=== PATIENT | female | born 1930 | race Caucasian/White ===

== ENCOUNTER 2017-01-06 17:05 | Inpatient (IN) ==
[2017-01-06] MEDS ORDERED: DiltiaZEM 25 MG/5 ML INJECTION IVP ONE ×2 (17:45→18:09)
[2017-01-06] MEDS ORDERED: NS 1,000 ML IV ONE (17:45)
[2017-01-06] MEDS ORDERED: SALINE FLUSH 10ml SYRINGE IVF PRN (17:45)
--- NOTE | 2017-01-06 18:18 | Emergency Department Report ---
Cardiac General HPI - General Chief Complaint: Arrhythmia/Palpitations <Alexis Clemons Q - 01/06/17 23:40> Stated Complaint: Cardiac <Alexis Clemons Q - 01/06/17 23:40> Time Seen by Provider: 01/06/17 17:38 <Alexis Clemons Q - 01/06/17 23:40> - History of Present Illness HPI narrative: 86-year-old female presents with irregular heart rate. Patient went to see her primary care provider today because she had noticed some fatigue. She felt like her sugars were low. She even tried eating a little bit of extra carbohydrate, which did not help. When she did check her sugar was over 200. She's had no fever, no chills. She does say she tends to be a little bit dehydrated and does not drink enough water. No chest pain, shortness of breath or chest pressure. No previous cardiac history. <RuddyRamesh E - 01/06/17 18:18> - Related Data Home Medications Medication Instructions Recorded Confirmed Pravastatin Sodium 40 mg PO HS #0 02/17/11 01/06/17 Insulin NPH/Reg-Don't Expunge 12 unit SQ HS #0 12/17/15 01/06/17 [Humulin 70/30] Insulin NPH/Reg-Don't Expunge 16 unit SQ AMI #0 12/17/15 01/06/17 [Humulin 70/30] Latanoprost 1 drop LEFT EYE HS #0 bottle 12/17/15 01/06/17 Losartan Potassium 50 mg PO DAILY #0 tab 12/17/15 01/06/17 Tramadol HCl 50 mg PO BID PRN #0 tab 12/17/15 01/06/17 dilTIAZem HCl [Cartia Xt] 240 mg PO HS #0 cap 12/17/15 01/06/17 Aspirin [Adult Low Dose Aspirin EC] 81 mg PO HS 01/06/17 01/06/17 <Alexis Clemons Q - 01/06/17 23:40> Allergies Allergy/AdvReac Type Severity Reaction Status Date / Time lisinopril Allergy Unknown Verified 01/06/17 17:25 metronidazole Allergy Unknown Verified 01/06/17 17:25 nitrofurantoin Allergy Unknown Verified 01/06/17 17:25 ofloxacin Allergy Unknown Verified 01/06/17 17:25 metformin AdvReac Unknown Diarrhea Verified 01/06/17 17:25 hydrocodone AdvReac Verified 01/06/17 17:28 <Alexis Clemons Q - 01/06/17 23:40> Review of Systems All systems: reviewed and negative except as stated <Ramesh Fox 18:18> [facility] Patient Stated Medical History Cataracts Yes Cardiac Arrhythmia Yes: a-fib Hypertension Yes Other Cardiology Yes: hyperlipidemia Diabetes Mellitus Type 2 Yes <RuddyRamesh Gray 01/06/17 18:14> Patient Stated Medical History Cataracts Yes Cardiac Arrhythmia Yes: a-fib Hypertension Yes Other Cardiology Yes: hyperlipidemia Diabetes Mellitus Type 2 Yes <Alexis Clemons - 01/06/17 19:57> Medical History Updates: Hypertension, diabetes. <RuddyRamesh Gray 01/06/17 18 :18> Surgical History: Negative <RuddyRamesh Gray 01/06/17 18:18> - Social History Smoking status: Never smoker <RuddyRamesh Gray 01/06/17 18:18> Substance use type: does not use <Ramesh Fox 01/06/17 18:18> Physical Exam - Limitations Limitations: no limitations <Ramesh Fox 01/06/17 18:18> - General General appearance: alert, in no apparent distress <RuddyRamesh Gray 01/06/17 18:18> - Normal Exams: Head:: Normocephalic without trauma <RuddyRamesh Gray 01/06/17 18:18> Eyes:: Pupils are PERRLA w/ EOMI, No scleral icterus, irritation, or foreign bodies noted <RuddyRamesh Gray 01/06/17 18:18> Neck:: Full range of motion, without adenopathy, JVD, bruits or thyromegaly < [place] Gray 01/06/17 18:18> Chest/Respirations:: Clear all fitzpatrick, with good airflow, and symmetry bilaterally <RuddyRamesh Gray 01/06/17 18:18> Cardiovascular:: without murmur or gallop, Pulses 2+ all extremities, capillary refill, <2 seconds all extremities <[place] Gray 01/06/17 18:18> Abdomen:: Bowel sounds positive, soft, non-tender, non-distended, no hepatosplenomegaly, masses or bruits noted <Ramesh Fox - 01/06/17 18:18> Neurological:: Patient is alert, and oriented, cranial nerves, motor/sensory/ cerebellar, exams w/o gross deficits, to observation <Ramesh Fox 18:18> Psychiatric:: Patient exhibits, appropriate attention, emotion and affect < Ramesh Fox 01/06/17 18:18> - Cardiovascular Cardiovascular exam: Present: tachycardia <Ramesh Fox 01/06/17 18:18> Course Vital Signs Temperature 98.6 F 01/06/17 17:07 Pulse Rate 138 H 01/06/17 17:07 Respiratory Rate 16 01/06/17 17:07 Blood Pressure 136/82 01/06/17 17:07 Pulse Oximetry 94 01/06/17 17:07 Temperature 98.6 F 01/06/17 17:07 Pulse Rate 70 01/06/17 20:00 Respiratory Rate 16 01/06/17 20:00 Blood Pressure 142/70 H 01/06/17 20:00 Pulse Oximetry 99 01/06/17 20:00 <Alexis Clemons - 01/06/17 23:40> Cardiac General - [facility] Narrative Medical decision making narrative: Patient given a total of 25 Cardizem IV started on a drip at 5 mg per hour. Patient is currently rate controlled rate of 70, however still has underlying atrial flutter rhythm. Patient only anticoagulation right now is low dose 81 mg aspirin. Discuss case with Dr. Parker, tele-hospitalist, she will admit to the CCU <Alexis Clemons - 01/06/17 23:40> Initial labs including troponin, CBC, CMP, TSH, EKG and chest x-ray are ordered. Patient had 1 L normal saline ordered as a bolus to be given IV, 10 mg of Cardizem were given IV. Patient is being turned over to Dr. Clemons who is taking over the shift. <Ramesh Fox - 01/06/17 18:18> - Medical Records Attestation: I reviewed the patient's medical records. <Alexis Clemons - 23:40> - Lab Data Attestation: I reviewed the patient's lab results. <Alexis Clemons Q - 23:40> Result diagrams: 01/06/17 17:35 01/06/17 17:35 <Alexis Clemons Q - 01/06/17 23:40> Lab Results 01/06/17 01/06/17 01/06/17 Range/Units 17:35 17:35 18:51 WBC 11.7 H (4.5-11.0) T/MM3 RBC 5.37 H (4.00-5.20) M/MM3 Hgb 16.0 (12-16) GM/DL Hct 49.9 H (36-46) % MCV 92.9 (80-100) UM3 MCH 29.8 (26-34) UUG MCHC 32.1 (31-37) GM/DL RDW Std Deviation 45.1 (36.9-50.2) FL Plt Count 335 (130-400) T/MM3 MPV 11.7 (9.4-12.4) UM3 Immature Gran % (Auto) 0.3 (0.0-0.5) % Neut % (Auto) 70.6 H (33-66) % Lymph % (Auto) 23.2 (23-45) % Avery % (Auto) 5.4 (0-9.0) % Eos % (Auto) 0.3 (0-4) % Baso % (Auto) 0.2 (0-2) % Neut # 8.2 H (1.8-7.7) T/MM3 Lymph # 2.7 (1-4.8) T/MM3 Avery # 0.6 (0-0.8) T/MM3 Eos # 0.0 (0-0.5) T/MM3 Baso # 0.0 (0-0.2) T/MM3 Abs Immat Gran (auto) 0.03 (0.00-0.03) T/MM3 Turbidity < 20 (0-20) Sodium 138 (134-144) MEQ/L Potassium 4.4 (3.6-5) MEQ/L Chloride 100 (98-107) MEQ/L Carbon Dioxide 26 (22-30) MEQ/L Anion Gap 12 (5-15) MEQ/L BUN 24.0 H (7-17) MG/DL Creatinine 1.1 (0.7-1.2) MG/DL GFR Calculation 47 BUN/Creatinine Ratio 22 (6-26) RATIO Glucose 232 H (65-110) MG/DL Calculated Osmolality 277 (261-280) MOSM/KG Calcium 9.9 (8.4-10.2) MG/DL Magnesium 2.2 (1.6-2.3) MG/DL Total Bilirubin 0.70 (0.20-1.30) MG/DL Icterus Index < 2 (0-7) AST 22 (14-36) U/L ALT 23 (9-52) U/L Alkaline Phosphatase 95 (38-126) U/L Creatine Kinase 45 (30-135) U/L Troponin I 0.033 (0-0.12) ng/ml Total Protein 7.1 (6.3-8.2) G/DL Albumin 4.7 (3.5-5.0) G/DL Globulin 2.4 (2.4-3.6) G/DL Albumin/Globulin Ratio 2.0 (1.1-2.2) RATIO TSH 3.95 (0.47-4.68) MIU/L Specimen Hemolysis 30 H (0-25) Ur Collection Type Urine, clean catch Urine Color Yellow (YELLOW) Urine Clarity Clear Urine pH 6.5 (5.0-8.0) Ur Specific Clyde <=1.005 L (1.015-1.025) Urine Protein Negative (NEGATIVE) Urine Glucose (UA) Negative (NEGATIVE) Urine Ketones Negative (NEGATIVE) Urine Occult Blood Trace-intact (NEGATIVE) Urine Nitrate Negative (NEGATIVE) Urine Bilirubin Negative (NEGATIVE) Urine Urobilinogen 0.2 (NORMAL) EU/DL Ur Leukocyte Esterase 1+ A (NEGATIVE) Urine RBC 0-1 (0-3) /HPF Urine WBC 5-10 H (0-5) /HPF Urine WBC Clumps Few Ur Squamous Epith Cells 0-5 Urine Bacteria 1+ H (NEGATIVE) Ur Culture Indicated? Cult not indicated <Alexis Clemons 01/06/17 23:40> - Radiology Data Attestation: I reviewed the patient's radiology results. <Alexis Clemons 23:40> Two-view chest x-ray, no acute cardiopulmonary findings <Alexis Clemons 01/06/17 23:40> - EKG Data EKG #1 EKG attestation: Yes: I reviewed and interpreted this EKG. <Kaci,Alexis Q - 01/06/17 23:40> EKG results narrative: Atrial fib/flutter <Kaci,Alexis Q - 01/06/17 23:40> Rate: tachycardia <Kaci,Alexis Q - 01/06/17 23:40> Rhythm: A. flutter, with a 2:1 block <Whiteside,Alexis Q - 01/06/17 23:40> [place]/QRS: LBBB <Kaci,Alexis Q - 01/06/17 23:40> Interpretation: no acute changes <Whiteside,Alexis Q - 01/06/17 23:40> EKG #2 EKG attestation: Yes: I reviewed and interpreted this EKG. <Whiteside,Alexis Q - 01/06/17 23:40> EKG results narrative: Atrial fibrillation/flutter <Whiteside,Alexis Q - 01/06/17 23:40> Rate: normal <Whiteside,Alexis Q 01/06/17 23:40> Rhythm: A. flutter <Kaci,Alexis Q - 01/06/17 23:40> [place]/QRS: LBBB <Kaci,Alexis Q - 01/06/17 23:40> Interpretation: no acute changes <Whiteside,Alexis Q - 01/06/17 23:40> EKG #3 EKG attestation: Yes: I reviewed and interpreted this EKG. <Whiteside,Alexis Q - 01/06/17 23:40> EKG results narrative: Atrial fib/flutter <Whiteside,Alexis Q - 01/06/17 23:40> Rate: normal <Kaci,Alexis Q - 01/06/17 23:40> Rhythm: A. flutter <Kaci,Alexis Q - 01/06/17 23:40> [place]/QRS: LBBB <Whiteside,Alexis Q - 01/06/17 23:40> When compared to previous EKG there are: no significant changes <Whiteside, Alexis Q - 01/06/17 23:40> Interpretation: no acute changes <Kaci,Alexis Q - 01/06/17 23:40> Disposition Clinical Impression: Atrial fibrillation Qualifiers: Atrial fibrillation type: paroxysmal Qualified Code(s): I48.0 - Paroxysmal atrial fibrillation <Alexis Clemons 01/06/17 19:57> Disposition: 02 To [facility] <Alexis Clemons 01/06/17 19:57> Condition: Stable <Alexis Clemons 01/06/17 19:57> Instructions: <Alexis Clemons 01/06/17 23:40> Prescriptions: No Action Insulin NPH/Reg-Don't Expunge [Humulin 70/30] 12 unit SQ HS #0 Tramadol HCl 50 mg PO BID PRN #0 tab PRN Reason: Pain dilTIAZem HCl [Cartia Xt] 240 mg PO HS #0 cap Aspirin [Adult Low Dose Aspirin EC] 81 mg PO HS Pravastatin Sodium 40 mg PO HS #0 Insulin NPH/Reg-Don't Expunge [Humulin 70/30] 16 unit SQ AMI #0 Latanoprost 1 drop LEFT EYE HS #0 bottle Losartan Potassium 50 mg PO DAILY #0 tab <Alexis Clemons 01/06/17 23:40> Referrals: Sachin Carias MD [Family Provider] - <Alexis Clemons 23:40> Forms: <Alexis Clemons 01/06/17 23:40> - Seen By: physician <Alexis Clemons 01/06/17 19:57>
[2017-01-06] MEDS ORDERED: DiltiaZEM Drip 125 MG in NS 100 ML IV SCH (18:44)
[2017-01-06] MEDS: NS 1,000 ML IV SCH (19:27)
[2017-01-06] MEDS ORDERED: ONDANSETRON 4 MG/2 ML INJECTION IVP PRN (20:04)
[2017-01-06] MEDS ORDERED: TRAMADOL 50 MG TABLET PO PRN (20:13)
[2017-01-06] MEDS ORDERED: INSULIN NPH/REG 70/30 INJECTION SQ SCH (20:15)
[2017-01-06 20:39] VITALS: BMI 29.2
[2017-01-06] MEDS: LATANOPROST 0.005% EYE DROPS 2.5ml LEFT EYE SCH (22:00)
--- NOTE | 2017-01-06 22:00 | History & Physical Report ---
History of Present Illness Date: 01/06/17 Chief complaint: not feeling well HPI: 86 yo F with PMH of A. Jenny presented to the ED after being seen by her PCP today and found to have HR of 130. Patient went to see her primary care provider today because she had noticed some fatigue. She felt like her sugars were low. She even tried eating a little bit of extra carbohydrate, which did not help. When she did check her sugar was over 200. She's had no fever, no chills. She does say she tends to be a little bit dehydrated and does not drink enough water. No chest pain, shortness of breath or chest pressure. She sees a clock maker 1 a year and takes cardizem 240mg QD and ASA 81 mg daily. She is not on anticoagulation. She was found to have a HR in the 130's in the ED and A. Fib vs A. Flutter. She was given cardizem bolus IV and started on a cardizem gtt, her rate decreased to the 70's. She was found to be in A. Flutter on her EKG after her rate decreased. She was admitted to the CCU. Review of Systems All systems: reviewed and no additional remarkable complaints except as stated PFSH Patient Stated Medical History Cataracts Yes Cardiac Arrhythmia Yes: a-fib Hypertension Yes Other Cardiology Yes: hyperlipidemia Diabetes Mellitus Type 2 Yes Medical History Updates: Hypertension, diabetes. Surgical History: Negative - Social History Smoking status: Never smoker Medications Home Medications Medication Instructions Recorded Confirmed Type Pravastatin Sodium 40 mg PO HS #0 02/17/11 01/06/17 History Insulin NPH/Reg-Don't Expunge 12 unit SQ HS #0 12/17/15 01/06/17 History [Humulin 70/30] Insulin NPH/Reg-Don't Expunge 16 unit SQ AMI #0 12/17/15 01/06/17 History [Humulin 70/30] Latanoprost 1 drop LEFT EYE HS #0 bottle 12/17/15 01/06/17 History Losartan Potassium 50 mg PO DAILY #0 tab 12/17/15 01/06/17 History Tramadol HCl 50 mg PO BID PRN #0 tab 12/17/15 01/06/17 History dilTIAZem HCl [Cartia Xt] 240 mg PO HS #0 cap 12/17/15 01/06/17 History Aspirin [Adult Low Dose Aspirin EC] 81 mg PO HS 01/06/17 01/06/17 History Allergies Allergy/AdvReac Type Severity Reaction Status Date / Time lisinopril Allergy Unknown Verified 01/06/17 17:25 metronidazole Allergy Unknown Verified 01/06/17 17:25 nitrofurantoin Allergy Unknown Verified 01/06/17 17:25 ofloxacin Allergy Unknown Verified 01/06/17 17:25 metformin AdvReac Unknown Diarrhea Verified 01/06/17 17:25 hydrocodone AdvReac Verified 01/06/17 17:28 Exam Vital Signs: Temperature 98.6 F 01/06/17 17:07 Pulse Rate 70 01/06/17 20:00 Respiratory Rate 16 01/06/17 20:00 Blood Pressure 142/70 H 01/06/17 20:00 Pulse Oximetry 99 01/06/17 20:00 Oxygen Delivery Method Room Air Height: 1.6 m Weight: 74.8 kg Body Mass Index: 29.2 - Constitutional Present: well nourished, well developed - Routine Respiratory Exam Present: CTA bilaterally. Absent: wheezes - Routine Cardiovascular Exam Present: no murmur, irregular rhythm, irregularly irregular - Routine Abdominal Exam Present: soft, normoactive bowel sounds, non distended. Absent: tenderness - Routine Extremities Exam Present: edema (B/L lower extremity) - Routine Skin Exam Present: dry, warm - Routine Neurological Exam Present: alert, oriented X3, CN II-XII intact Results - Labs CBC & Chem 7: 01/06/17 17:35 01/06/17 17:35 Assessment and Plan (1) Atrial fibrillation Current visit: Yes Status: Acute (2) Diabetes Current visit: Yes Status: Acute 01/06/17 22:05 Patient admitted to CCU with cardizem gtt going. Patient in A. Flutter with 2:1 block. She is hemodynamically stable at this time. Given her home dose of cardizem 240mg QD and starter on heparin 5,000 Q8H SQ. Consult cardiology in AM. Patient reports last ECHO was 5 years ago. DVT Prophylaxis: SQ Heparin Resuscitation Status: Full Code - Time spent with patient greater than 35 minutes Hospital Course Summary Disclaimer: The visit summary below is not to be considered part of the above Progress Note.
[2017-01-06] MEDS: PRAVASTATIN 40 MG TABLET PO SCH (22:05)
[2017-01-06] MEDS: ASPIRIN *EC* 81 MG TABLET PO SCH (22:06)
[2017-01-06] MEDS: INSULIN NPH/REG 70/30 INJECTION SQ SCH (22:09)
[2017-01-07] MEDS ORDERED: HEPARIN SUB-Q 5,000 UNITS/0.5 ML INJECTION SQ SCH (01:00)
[2017-01-07] MEDS: NS 1,000 ML IV SCH ×2 (05:46→16:29)
[2017-01-07] MEDS ORDERED: ENOXAPARIN 80 MG/0.8 ML INJECTION SQ SCH (09:00)
[2017-01-07] MEDS: LOSARTAN 50 MG TABLET PO SCH (09:26)
[2017-01-07] MEDS: INSULIN NPH/REG 70/30 INJECTION SQ SCH ×2 (09:34→21:06)
[2017-01-07] MEDS ORDERED: DiltiaZEM 25 MG/5 ML INJECTION IVP ONE (19:01)
[2017-01-07] MEDS: ASPIRIN *EC* 81 MG TABLET PO SCH (21:01)
[2017-01-07] MEDS: LATANOPROST 0.005% EYE DROPS 2.5ml LEFT EYE SCH (21:03)
[2017-01-07] MEDS: PRAVASTATIN 40 MG TABLET PO SCH (21:04)
[2017-01-08] MEDS: NS 1,000 ML IV SCH (03:06)
[2017-01-08 08:12] VITALS: TEMP 98.3
[2017-01-08] MEDS: LOSARTAN 50 MG TABLET PO SCH (08:39)
[2017-01-08] MEDS: INSULIN NPH/REG 70/30 INJECTION SQ SCH (08:40)
--- NOTE | 2017-01-08 09:53 | XRay Report ---
INDICATION: tachyarrhythmia PROCEDURE: CHEST 2-VIEWS UPRIGHT (PA & LAT) Encounter: Initial COMPARISON: December 17, 2015 FINDINGS: The lungs are clear without evidence of focal abnormal airspace opacity. There is no pleural effusion or pneumothorax. The heart size, mediastinal contours and pulmonary vascularity are within normal limits. Right upper quadrant surgical clips. IMPRESSION: No acute cardiopulmonary disease. .
--- NOTE | 2017-01-08 12:29 | Cardiology Consult Note ---
History of Present Illness Consult date: 01/07/17 (A-flutter) <Yulia Toro 01/08/17 13:29> Requesting physician: Melida Holly <Yulia Toro 01/08/17 13:29> Consult reason: atrial fibrillation <Yulia Toro 01/08/17 13:29> Chief complaint: not feeling well <Yulia Toro 01/08/17 13:29> History of present illness: This is an 86 year old patient with a history of A-fib, HTN, DM. She had her first experience with A-fib about 10 yrs ago and was referred to Dr. Powell. She had another a few yrs ago. He has done a cardiac work up on her and she was told every thing is fine and told her to take ASA daily. For the last couple of days she had not been feeling well, shaky, and sweaty. She thought it was a low blood sugar but when she would check her blood sugar, it was always high, in the 200's. She has had a headache and when she stands up she felt worse. She saw Dr. Carias, her PCP and her HR was tachy. ECG: A-flutter , HR 137, LBBB. She was sent to the [facility] ER. She did not think it was A-fib because she did not feel palpitations like she had the past 2 x she was found to be in A-fib. In ER ECG: Atrial flutter, HR 136, LBBB. She was started on a Cardizem drip and her subsequent ECG: A-flutter, HR 70, LBBB. and she was admitted to ICU. Dr. Chavez was consulted for her A-flutter. <Yulia Toro 01/08/17 13:29> Review of Systems - Constitutional Constitutional: Present: fatigue, headache(s), malaise, weakness, other (sweats) <Yulia Toro 01/08/17 13:29> - EENMT Eyes: Absent: change in vision <Yulia Toro 01/08/17 13:29> Balance: Present: other (dizziness) <Yulia Toro 01/08/17 13:29> Mouth/Throat: Absent: sore throat <Yulia Toro 01/08/17 13:29> - Cardiovascular Cardiovascular: Present: dyspnea on exertion, edema (in ankles most the time. ) . Absent: chest pain, palpitations, syncope, orthopnea <Yulia Toro 13:29> Vascular: Absent: pedal edema <Yulia Toro 01/08/17 13:29> - Respiratory Respiratory: Present: dyspnea. Absent: cough, hemoptysis <Yulia Toro 01/08/17 13:29> - Gastrointestinal Gastrointestinal: Absent: change in bowel habits, hematemesis, hematochezia, melena, nausea <Yulia Toro 01/08/17 13:29> - Genitourinary Genitourinary: Absent: dysuria <Yulia Toro 01/08/17 13:29> - Musculoskeletal Musculoskeletal: Present: back pain (chronic). Absent: muscle cramps, muscle weakness <Yulia Toro 01/08/17 13:29> - Integumentary/Breasts Integumentary: Absent: rash <Yulia Toro 01/08/17 13:29> - Neurological Neurological: Present: dizziness, headache(s) (on admit), weakness. Absent: confusion, loss of vision, vertigo <Yulia Toro 01/08/17 13:29> - Psychiatric Psychiatric: Absent: anxiety, depression <Yulia Toro 01/08/17 13:29> - Endocrine Endocrine: Absent: palpitations, polyphagia, polyuria <Yulia Toro 13:29> - Hematologic/Lymphatic Hematologic/Lymphatic: Absent: easy bleeding, easy bruising <Yulia Toro 01/08/17 13:29> [facility] Patient Stated Medical History Cataracts Yes Cardiac Arrhythmia Yes: a-fib Hypertension Yes Other Cardiology Yes: hyperlipidemia Diabetes Mellitus Type 2 Yes <Jeff Chavez - 01/10/17 09:41> Patient Stated Medical History Cataracts Yes Cardiac Arrhythmia Yes: a-fib Hypertension Yes Other Cardiology Yes: hyperlipidemia Diabetes Mellitus Type 2 Yes <Yulia Toro 01/08/17 13:29> Medical History Updates: Atrial fibrillation, Hypertension, diabetes. spondylolisthesis, DDD, DSLD, CKD, orthostasis <Yulia Toro 01/08/17 13 :29> Surgical History: Negative <Yulia Toro 01/08/17 13:29> Family History: DMT2, Parkinson, heart disease, fibromyalgia, gour. <Yulia Toro 01/08/17 13:29> - Social History Smoking status: Never smoker <Yulia Toro 01/08/17 13:29> Substance use type: does not use <Yulia Toro 01/08/17 13:29> Alcohol intake frequency: holidays/special occasions only <Yulia Toro 01/08/17 13:29> Housing: house <Yulia Toro 01/08/17 13:29> Current occupational status: retired (nurse) <Yulia Toro 01/08/17 13: 29> Medications Home Medications Medication Instructions Recorded Confirmed Type Pravastatin Sodium 40 mg PO HS #0 02/17/11 01/06/17 History Insulin NPH/Reg-Don't Expunge 12 unit SQ HS #0 12/17/15 01/06/17 History [Humulin 70/30] Insulin NPH/Reg-Don't Expunge 16 unit SQ AMI #0 12/17/15 01/06/17 History [Humulin 70/30] Latanoprost 1 drop LEFT EYE HS #0 bottle 12/17/15 01/06/17 History Losartan Potassium 50 mg PO DAILY #0 tab 12/17/15 01/06/17 History Tramadol HCl 50 mg PO BID PRN #0 tab 12/17/15 01/06/17 History Aspirin [Adult Low Dose Aspirin EC] 81 mg PO HS 01/06/17 01/06/17 History <Jeff Chavez - 01/10/17 09:41> Allergies Allergy/AdvReac Type Severity Reaction Status Date / Time lisinopril Allergy Unknown Verified 01/06/17 17:25 metronidazole Allergy Unknown Verified 01/06/17 17:25 nitrofurantoin Allergy Unknown Verified 01/06/17 17:25 ofloxacin Allergy Unknown Verified 01/06/17 17:25 metformin AdvReac Unknown Diarrhea Verified 01/06/17 17:25 hydrocodone AdvReac Verified 01/06/17 17:28 <Jeff Chavez - 01/10/17 09:41> Exam Vital signs: Temperature 98.3 F 01/08/17 13:00 Pulse Rate 53 L 01/08/17 13:00 Respiratory Rate 24 01/08/17 13:00 Blood Pressure 137/65 01/08/17 13:00 Pulse Oximetry 98 01/08/17 13:00 Oxygen Delivery Method Room Air <Jeff Chavez - 01/10/17 09:41> Temperature 98.3 F 01/08/17 07:00 Pulse Rate 73 01/08/17 09:00 Respiratory Rate 27 H 01/08/17 09:00 Blood Pressure 137/63 01/08/17 09:00 Pulse Oximetry 94 01/08/17 09:00 Oxygen Delivery Method Room Air <MunaYulia moreira 01/08/17 13:29> - Constitutional no acute distress, well nourished, well developed <MunaYulia moreira 13:29> - Routine HEENT Exam Head: Present: normocephalic, atraumatic <MunaYulia Kaufman 01/08/17 13:29> ENT: Present: mucous membranes moist, dentition normal <MunaYulia moreira 13:29> Nose: moist mucous membranes <MunaYulia Kaufman 01/08/17 13:29> - Routine Neck Exam Present: supple, full ROM. Absent: JVD, carotid bruit <MunaYulia Kaufman Chris 13:29> - Routine Respiratory Exam Present: CTA bilaterally <Muna,Yulia Kaufman Chris 01/08/17 13:29> - Routine Cardiovascular Exam Present: no murmur, irregular rhythm <MunaYulia Kaufman Chris 01/08/17 13:29> - Routine Abdominal Exam Present: soft, non distended, non tender <MunaYulia Kaufman Chris 01/08/17 13:29> - Routine Extremities Exam Present: edema (+1 in ankles capo ), pulses intact (pedal pulses palp), normal capillary refill <Yulia Toro - 01/08/17 13:29> - Routine Skin Exam Present: intact, warm. Absent: rash (on exposed skin) <Yulia Toro 13:29> - Routine Neurological Exam Present: alert, oriented X3, moving all extremities, vision grossly intact, hearing grossly intact, normal speech <Yulia Toro 01/08/17 13:29> - Routine Psychiatric Exam Present: normal affect, normal thought process, cooperative, good insight, good judgment <Yulia Toro - 01/08/17 13:29> Results 01/07/17 04:19 01/07/17 04:19 <Jeff Chavez - 01/10/17 09:41> Coagulation 01/07/17 Range/Units 19:58 APTT 42.1 H (24-36) SEC Intake and Output 01/07/17 01/08/17 01/08/17 22:59 06:59 14:59 Intake Total 1758.334 / 9884.860 6367.333 / 1038.333 400 / 400 Output Total 1225 / 1225 350 / 350 Balance 1758.334 / 1758.334 -186.667 / -186.667 50 / 50 Intake: IV 1428.334 / 1428.334 838.333 / 838.333 400 / 400 Cardizem IV 125 mg In 0 / 0 Normal Saline 100 ml @ 5 MG/HR 5 mls/hr IV .Q24H ELINA Rx#:[id number] Normal Saline 1,000 ml @ 1428.334 / 1428.334 838.333 / 838.333 400 / 400 100 mls/hr IV .Q10H ELINA Rx#:[id number] Oral 330 / 330 200 / 200 Output: Urine 1225 / 1225 350 / 350 Other: # Voids 1 Weight 169 lb 1.513 oz Patient Weight 01/09/17 06:59 Weight 169 lb 1.513 oz <Yulia Toro Chris 01/08/17 13:29> - EKG Interpretation EKG shows: atrial fibrillation (Atrial flutter) <Yulia Toro 01/08/17 13:29> EKG interpretations - EKG EKG shows: atrial fibrillation (Atrial flutter) <Yulia Toro - 01/08/17 13:29> Assessment and Plan (1) Atrial fibrillation Status: Acute (2) Diabetes Status: Chronic <Jeff Chavez - 01/10/17 09:41> (1) Atrial fibrillation Status: Acute We increased Cardizem from 240mg to 480 mg daily. - - started Xarelto 20mg daily with a meal. - plan to keep her on anticoagulation for 4 weeks then have her f/u in office with Dr. Chavez and schedule her to a cardioversion after she has been on anticoagulation for 4 weeks to ensure she has not formed a clot. After DCCV we will start her on an antiarrhythmic. - discussed A-fib diagnosis and treatment. she understands, she is a nurse. - Provided her with Xarelto 4 weeks of samples and coupons. (2) Diabetes Status: Chronic per attending. <Yulia Toro - 01/08/17 12:13> - Attestation Attestation Narrative: 01/10/17 09:41 Recommendation After examining the patient I agree with the above assessment. I am involved in the formulation of the patient's plan of care. <Jeff Chavez - 01/10/17 09:41> Hospital Course Summary Disclaimer: The visit summary below is not to be considered part of the above Progress Note. <Jeff Chavez - 01/10/17 09:41> The visit summary below is not to be considered part of the above Progress Note. <Yulia Toro - 01/08/17 13:29> Sepsis Assessment - Evaluation Sepsis screening result: No Definite Risk <Yulia Toro - 01/08/17 13:29> Addendum entered and electronically signed by Yulia Toro APRN 01/08/17 13:40: TSH is 3.95 wnl.
[2017-01-08] MEDS ORDERED: TETANUS, DIPHTHERIA, a PERTUSSIS (Tdap) 0.5ml INJECTION IM ONE (14:15)
--- NOTE | 2017-01-08 14:21 | Progress Note ---
Subjective: The patient was seen at 14:05 with family at bedside. The patient reports she is doing well, and feels better when she is up moving around compared to yesterday. She is eating okay, she had half a hamburger before she had her ice cream and a cookie. Her heart rate is better and has been primarily in the 70s. She does tend to become a little more tachycardic when she gets up and moves around but not to the extent of yesterday's 140s. She denies any pain or shortness of breath according to the nurse's notes. Objective Vital signs: Temperature 98.3 F 01/08/17 07:00 Pulse Rate 68 01/08/17 12:00 Respiratory Rate 27 H 01/08/17 09:00 Blood Pressure 137/63 01/08/17 09:00 Pulse Oximetry 94 01/08/17 09:00 Oxygen Delivery Method Room Air Weight: 169 lb 1.513 oz - Additional findings Additional findings: In general, the patient is alert and oriented 3, cooperative with exam, and in no respiratory distress. HEENT: Head is atraumatic, normocephalic, no conjunctival petechiae. Lungs: Clear to auscultation without wheezes, crackles or rhonchi CV: Occasionally irregular Abdomen: Soft, nontender, bowel sounds are present, there is no guarding no rebound. Extremities: No clubbing, no cyanosis, no edema. Skin: Warm and dry no sign of rash Neuro: Patient is alert Results - Labs CBC & Chem 7: 01/07/17 04:19 01/07/17 04:19 Assessment and Plan (1) Atrial fibrillation Current visit: Yes Status: Acute (2) Diabetes Current visit: Yes Status: Chronic Assessment and Plan: Impression: Atrial flutter new-onset with a history of atrial fibrillation previously followed by Dr. Powell, seen by Dr. Wall during this admission controlled on Cardizem, Diabetes mellitus type 2 Hypertension History of colon cancer History of cervical cancer Recommendations: The patient was seen by Dr. Wall yesterday and is ready for discharge today. According to the cardiology notes: Dr. Wall increased Cardizem from 240mg to 480 mg daily. - - started Xarelto 20mg daily with a meal. - plans to keep her on anticoagulation for 4 weeks then have her f/u in office with Dr. Chavez and schedule her to a cardioversion after she has been on anticoagulation for 4 weeks to ensure she has not formed a clot. After DCCV we will start her on an antiarrhythmic. - Provided her with Xarelto 4 weeks of samples and coupons. Will also give it to depth today. We'll have patient follow-up with Dr. Carias in a week. The patient's questions were answered. Sepsis Assessment - Evaluation Sepsis screening result: No Definite Risk Hospital Course Summary Disclaimer: The visit summary below is not to be considered part of the above Progress Note.
--- NOTE | 2017-01-08 14:36 | Discharge Instructions ---
Discharge Plan - Med Rec/Dispo Referrals/Follow Up: Sachin Carias MD [Family Provider] - Prescriptions: New DiltiaZEM CD [Cardizem Cd] 480 mg PO HS capsule Rivaroxaban [Xarelto] 20 mg PO WS tablet Continue Insulin NPH/Reg-Don't Expunge [Humulin 70/30] 12 unit SQ HS #0 Tramadol HCl 50 mg PO BID PRN #0 tab PRN Reason: Pain Aspirin [Adult Low Dose Aspirin EC] 81 mg PO HS Pravastatin Sodium 40 mg PO HS #0 Insulin NPH/Reg-Don't Expunge [Humulin 70/30] 16 unit SQ AMI #0 Latanoprost 1 drop LEFT EYE HS #0 bottle Losartan Potassium 50 mg PO DAILY #0 tab Discontinued dilTIAZem HCl [Cartia Xt] 240 mg PO HS #0 cap Aspirin [Aspirin EC] 81 mg PO DAILY Discharge Instructions/Outpatient Orders: Final Provider Discharge Instructions Location: Determined By Patient - Disposition 01 Discharged Home, Self-Care
[2017-01-08 14:55] VITALS: BP 137/65; PULSE 53; RESP 24; O2SAT 98
--- NOTE | 2017-01-08 15:02 | Discharge Summary ---
Discharge Information Date of admission: 01/06/17 19:57 Anticipated date of discharge: 01/08/17 Attending Physician: Imelda Parker MD Primary care physician: Sachin Carias MD Consults: 01/07/17 09:12 Physician Consult [CONS] Routine Consulting Provider: Jeff Chavez Reason For Exam: Atrial flutter - Discharge Diagnosis (1) Atrial fibrillation Qualifiers: Atrial fibrillation type: paroxysmal Qualified Code(s): I48.0 - Paroxysmal atrial fibrillation Status: Acute (2) Diabetes Qualifiers: Diabetes mellitus type: type 2 Status: Chronic - Laboratory Labs: 01/07/17 04:19 01/07/17 04:19 On January 08 she was discharged pertinent labs shows January 07 hemoglobin was 14.3 hematocrit 44.5. With a platelet count of 230,000 Her troponins in the hospital were initially 0.033 with a follow-up 0.039. - Radiology Radiology: Her chest x-ray done on January 06 showed no acute cardiopulmonary disease. History of Present Illness HPI: 86 yo F with PMH of Ryan Fib presented to the ED after being seen by her PCP today and found to have HR of 130. Patient went to see her primary care provider today because she had noticed some fatigue. She felt like her sugars were low. She even tried eating a little bit of extra carbohydrate, which did not help. When she did check her sugar was over 200. She's had no fever, no chills. She does say she tends to be a little bit dehydrated and does not drink enough water. No chest pain, shortness of breath or chest pressure. She sees a driftman 1 a year and takes cardizem 240mg QD and ASA 81 mg daily. She is not on anticoagulation. She was found to have a HR in the 130's in the ED and A. Fib vs A. Flutter. She was given cardizem bolus IV and started on a cardizem gtt, her rate decreased to the 70's. She was found to be in A. Flutter on her EKG after her rate decreased. She was admitted to the CCU. Objective Vital signs: Temperature 98.3 F 01/08/17 13:00 Pulse Rate 53 L 01/08/17 13:00 Respiratory Rate 24 01/08/17 13:00 Blood Pressure 137/65 01/08/17 13:00 Pulse Oximetry 98 01/08/17 13:00 Oxygen Delivery Method Room Air Weight: 169 lb 1.513 oz - Additional findings Additional findings: In general, the patient is alert and oriented 3, cooperative with exam, and in no respiratory distress. HEENT: Head is atraumatic, normocephalic, no conjunctival petechiae. Lungs: Clear to auscultation without wheezes, crackles or rhonchi CV: Occasionally irregular Abdomen: Soft, nontender, bowel sounds are present, there is no guarding no rebound. Extremities: No clubbing, no cyanosis, no edema. Skin: Warm and dry no sign of rash Neuro: Patient is alert Hospital Course This is a general summary of the patient's hospital course. For more details refer to the complete medical record. Impression: Atrial flutter new-onset with a history of atrial fibrillation previously followed by Dr. Powell, seen by Dr. Wall during this admission controlled on Cardizem, Diabetes mellitus type 2 Hypertension History of colon cancer History of cervical cancer The patient was admitted atrial fibrillation with rapid ventricular response. She was started on IV Cardizem after receiving a bolus her rate decreased to the 70s she was found to be in atrial flutter and admitted to CCU. She was seen by Dr. Wall please see below for his recommendations. She was discharged in stable condition. The patient was seen by Dr. Wall yesterday and is ready for discharge today. According to the cardiology notes: Dr. Wall increased Cardizem from 240mg to 480 mg daily. - - started Xarelto 20mg daily with a meal. - plans to keep her on anticoagulation for 4 weeks then have her f/u in office with Dr. Chavez and schedule her to a cardioversion after she has been on anticoagulation for 4 weeks to ensure she has not formed a clot. After DCCV we will start her on an antiarrhythmic. - Provided her with Xarelto 4 weeks of samples and coupons. Will also give it to Tdap today. We'll have patient follow-up with Dr. Carias in a week., Dr. Chavez in 2 weeks. The patient's questions were answered. Discharge Plan - Med Rec/Dispo Referrals/Follow Up: Sachin Carias MD [Family Provider] - 1 Week (Will follow up with Dr. Chavez in 2 weeks as well. She received her Tdap on 01/08/17) Jeff Chavez MD [Physician] - 2 Weeks Prescriptions: New DiltiaZEM CD [Cardizem Cd] 480 mg PO HS capsule Rivaroxaban [Xarelto] 20 mg PO WS tablet Continue Insulin NPH/Reg-Don't Expunge [Humulin 70/30] 12 unit SQ HS #0 Tramadol HCl 50 mg PO BID PRN #0 tab PRN Reason: Pain Aspirin [Adult Low Dose Aspirin EC] 81 mg PO HS Pravastatin Sodium 40 mg PO HS #0 Insulin NPH/Reg-Don't Expunge [Humulin 70/30] 16 unit SQ AMI #0 Latanoprost 1 drop LEFT EYE HS #0 bottle Losartan Potassium 50 mg PO DAILY #0 tab Discontinued dilTIAZem HCl [Cartia Xt] 240 mg PO HS #0 cap Aspirin [Aspirin EC] 81 mg PO DAILY Discharge Instructions/Outpatient Orders: Final Provider Discharge Instructions Location: Determined By Patient - Disposition 01 Discharged Home, Self-Care - Attestation Attestation Narrative: 01/08/17 15:15 On the day of discharge, over 30 minutes were spent in seeing and examining the patikarri, reviewing her hospital course, meds and completing her discharge summary and information.
[2017-01-08] MEDS ORDERED: RIVAROXABAN 20 MG TABLET PO SCH (17:30)
== END 2017-01-08 15:30 | disposition home or self-care (01) | DRG 310 ==
LOC: ED 17:05 → CCU 19:57
PROVIDERS: ADMIT Internal Medicine; ATTEND Internal Medicine

== ENCOUNTER 2017-01-10 19:41 | Inpatient (IN) ==
--- NOTE | 2017-01-10 19:59 | Emergency Department Report ---
Cardiac General HPI - General Stated Complaint: Elevated BP/BS/HR Time Seen by Provider: 01/10/17 20:12 Source: patient Limitations: no limitations - History of Present Illness HPI narrative: 86 YO F presents to ED with report of irregular heart rate, elevated BP and mild nausea. Patient says she woke up from a nap this evening and "did not feel right". [place] like she did when she was admitted last week for atrial fibrillation. Patient was recently admitted to ICU on Cardizem drip due to symptomatic atrial fibrillation. Patient was dismissed home from [facility] on Monday with increase in po cardizem and was started on Xarelto. Patient denies associated dizziness, SOB, CP, diaphoresis, blurred vision or BRO. Patient's vitreo retinal surgeon is Dr. Chavez. Occurred At: home Onset (ago): hour(s) Duration: constant Severity: moderate Context: awoke with symptoms Associated Symtoms: nausea (mild) - Related Data Home Medications Medication Instructions Recorded Confirmed Pravastatin Sodium 40 mg PO HS #0 02/17/11 01/10/17 Insulin NPH/Reg-Don't Expunge 12 unit SQ HS #0 12/17/15 01/10/17 [Humulin 70/30] Insulin NPH/Reg-Don't Expunge 16 unit SQ AMI #0 12/17/15 01/10/17 [Humulin 70/30] Latanoprost 1 drop LEFT EYE HS #0 bottle 12/17/15 01/10/17 Losartan Potassium 50 mg PO DAILY #0 tab 12/17/15 01/10/17 Tramadol HCl 50 mg PO BID PRN #0 tab 12/17/15 01/10/17 Previous Rx's Medication Instructions Recorded Rivaroxaban [Xarelto] 20 mg PO WS tablet 01/08/17 Amiodarone [Pacerone] 200 mg PO BID #60 tablet 01/12/17 Allergies Allergy/AdvReac Type Severity Reaction Status Date / Time lisinopril Allergy Unknown Verified 01/10/17 20:09 metronidazole Allergy Unknown Verified 01/10/17 20:09 nitrofurantoin Allergy Unknown Verified 01/10/17 20:09 ofloxacin Allergy Unknown Verified 01/10/17 20:09 metformin AdvReac Unknown Diarrhea Verified 01/10/17 20:09 hydrocodone AdvReac Verified 01/10/17 20:09 Review of Systems All systems: reviewed and negative except as stated Cardiovascular: Reports: as per HPI, palpitations PFSH Patient Stated Medical History Cataracts Yes Cardiac Arrhythmia Yes: a-fib Hypertension Yes Other Cardiology Yes: hyperlipidemia Diabetes Mellitus Type 2 Yes Other GI Yes: Constipation Hx Urinary Tract Infection Yes: UTI with Sepsis 12/2015 Other Musculoskeletal Yes: Scoliosis, pinched nerves Sepsis Yes: UTI Shingles Yes Medical History Updates: Atrial fibrillation, Hypertension, diabetes. spondylolisthesis, DDD, DSLD, CKD, orthostasis Surgical History: Negative Family History: Noncontributory - Social History Smoking status: Never smoker Current occupational status: retired Physical Exam - Limitations Limitations: no limitations - General General appearance: alert, in no apparent distress - Normal Exams: Head:: Normocephalic without trauma Eyes:: No scleral icterus, irritation ENMT:: No facial trauma, nasal exudates Chest/Respirations:: Clear all fitzpatrick, with good airflow, and symmetry bilaterally Abdomen:: Bowel sounds positive, soft, non-tender Musculoskeletal:: No tenderness, or deformity noted Integumentary:: No rashes Neurological:: Patient is alert, and oriented, motor/sensory/cerebellar, exams w /o gross deficits, to observation Psychiatric:: Patient exhibits, appropriate attention, emotion and affect - Neck Neck exam: Present: trachea midline - Cardiovascular Cardiovascular exam: Present: other (regular-irregular rhythm with rate of 138) Course - Consultations Consultation #1: I discussed patient's HPI, PMH, EKG, VS, exam findings and response to 10mg of Cardizem IV with Helena Milton APRN for Dr. Chavez.Gonzalez Malik spoke with Dr. Chavez. He would like patient admitted to ICU under their service with a Cardizem drip started. Time: 20:15 Vital Signs Temperature 98.0 F 01/10/17 19:43 Pulse Rate 155 H 01/10/17 19:43 Respiratory Rate 18 01/10/17 19:43 Blood Pressure 138/78 01/10/17 19:43 Pulse Oximetry 95 01/10/17 19:43 Temperature 99.1 F 01/12/17 12:05 Pulse Rate 71 01/12/17 15:00 Respiratory Rate 17 01/12/17 15:00 Blood Pressure 165/73 H 01/12/17 15:00 Pulse Oximetry 94 01/12/17 15:00 Cardiac General - MDM Narrative Medical decision making narrative: Patient was given 10mg IV of cardizem with no significant improvement of atrial flutter. Patient heart rate still in 130's with patient symptomatic. Patient given addition 10mg of cardizem IV and admitted to ICU on cardizem drip at 5mg/ hr for symptomatic atrial flutter. I discussed EKG/labs with patient and that Dr. Chavez feels patient needs admission to ICU. Patient agreed to admission. - Differential Diagnosis Differential diagnosis: Likely: palpitations, sinus tachycardia, artial fibrillation, artial flutter, supraventricular tachycardia, ventricular tachycardia - Medical Records Attestation: I reviewed the patient's medical records. - Lab Data Attestation: I reviewed the patient's lab results. Result diagrams: 01/12/17 04:40 01/12/17 04:40 Lab Results 01/10/17 01/10/17 01/10/17 Range/Units 20:03 20:03 20:03 WBC 10.5 (4.5-11.0) T/MM3 RBC 4.66 (4.00-5.20) M/MM3 Hgb 14.0 (12-16) GM/DL Hct 43.2 (36-46) % MCV 92.7 (80-100) UM3 MCH 30.0 (26-34) UUG MCHC 32.4 (31-37) GM/DL RDW Std Deviation 44.9 (36.9-50.2) FL Plt Count 266 (130-400) T/MM3 MPV 10.7 (9.4-12.4) UM3 Immature Gran % (Auto) 0.3 (0.0-0.5) % Neut % (Auto) 71.0 H (33-66) % Lymph % (Auto) 21.3 L (23-45) % Linn % (Auto) 6.5 (0-9.0) % Eos % (Auto) 0.7 (0-4) % Baso % (Auto) 0.2 (0-2) % Neut # 7.5 (1.8-7.7) T/MM3 Lymph # 2.2 (1-4.8) T/MM3 Linn # 0.7 (0-0.8) T/MM3 Eos # 0.1 (0-0.5) T/MM3 Baso # 0.0 (0-0.2) T/MM3 Abs Immat Gran (auto) 0.03 (0.00-0.03) T/MM3 Turbidity < 20 Cancelled (0-20) Sodium 140 Cancelled (134-144) MEQ/L Potassium 4.1 Cancelled (3.6-5) MEQ/L Chloride 106 Cancelled (98-107) MEQ/L Carbon Dioxide 24 Cancelled (22-30) MEQ/L Anion Gap 10 Cancelled (5-15) MEQ/L BUN 24.0 H Cancelled (7-17) MG/DL Creatinine 1.1 Cancelled (0.7-1.2) MG/DL GFR Calculation 47 Cancelled BUN/Creatinine Ratio 22 Cancelled (6-26) RATIO Glucose 236 H Cancelled (65-110) MG/DL Glucometer (65-110) mg/dL Calculated Osmolality 281 H Cancelled (261-280) MOSM/KG Calcium 9.3 Cancelled (8.4-10.2) MG/DL Magnesium 2.0 (1.6-2.3) MG/DL Icterus Index < 2 Cancelled (0-7) Troponin I 0.020 (0-0.12) ng/ml B-Natriuretic Peptide 2010 H (0-175) pg/mL Specimen Hemolysis < 15 Cancelled (0-25) 01/11/17 01/11/17 01/11/17 Range/Units 04:43 04:43 05:52 WBC 8.1 (4.5-11.0) T/MM3 RBC 4.32 (4.00-5.20) M/MM3 Hgb 13.0 (12-16) GM/DL Hct 40.4 (36-46) % MCV 93.5 (80-100) UM3 MCH 30.1 (26-34) UUG MCHC 32.2 (31-37) GM/DL RDW Std Deviation 44.0 (36.9-50.2) FL Plt Count 204 (130-400) T/MM3 MPV 11.8 (9.4-12.4) UM3 Immature Gran % (Auto) 0.1 (0.0-0.5) % Neut % (Auto) 61.5 (33-66) % Lymph % (Auto) 27.9 (23-45) % Linn % (Auto) 8.8 (0-9.0) % Eos % (Auto) 1.5 (0-4) % Baso % (Auto) 0.2 (0-2) % Neut # 5.0 (1.8-7.7) T/MM3 Lymph # 2.3 (1-4.8) T/MM3 Linn # 0.7 (0-0.8) T/MM3 Eos # 0.1 (0-0.5) T/MM3 Baso # 0.0 (0-0.2) T/MM3 Abs Immat Gran (auto) 0.01 (0.00-0.03) T/MM3 Turbidity < 20 (0-20) Sodium 142 (134-144) MEQ/L Potassium 3.7 (3.6-5) MEQ/L Chloride 107 (98-107) MEQ/L Carbon Dioxide 28 (22-30) MEQ/L Anion Gap 7 (5-15) MEQ/L BUN 22.0 H (7-17) MG/DL Creatinine 1.0 (0.7-1.2) MG/DL GFR Calculation 53 BUN/Creatinine Ratio 22 (6-26) RATIO Glucose 98 (65-110) MG/DL Glucometer 106 (65-110) mg/dL Calculated Osmolality 276 (261-280) MOSM/KG Calcium 9.0 (8.4-10.2) MG/DL Magnesium 2.1 (1.6-2.3) MG/DL Icterus Index < 2 (0-7) Troponin I (0-0.12) ng/ml B-Natriuretic Peptide (0-175) pg/mL Specimen Hemolysis < 15 (0-25) // Range/Units 14:22 WBC (4.5-11.0) T/MM3 RBC (4.00-5.20) M/MM3 Hgb (12-16) GM/DL Hct (36-46) % MCV (80-100) UM3 MCH (26-34) UUG MCHC (31-37) GM/DL RDW Std Deviation (36.9-50.2) FL Plt Count (130-400) T/MM3 MPV (9.4-12.4) UM3 Immature Gran % (Auto) (0.0-0.5) % Neut % (Auto) (33-66) % Lymph % (Auto) (23-45) % Linn % (Auto) (0-9.0) % Eos % (Auto) (0-4) % Baso % (Auto) (0-2) % Neut # (1.8-7.7) T/MM3 Lymph # (1-4.8) T/MM3 Linn # (0-0.8) T/MM3 Eos # (0-0.5) T/MM3 Baso # (0-0.2) T/MM3 Abs Immat Gran (auto) (0.00-0.03) T/MM3 Turbidity (0-20) Sodium (134-144) MEQ/L Potassium (3.6-5) MEQ/L Chloride (98-107) MEQ/L Carbon Dioxide (22-30) MEQ/L Anion Gap (5-15) MEQ/L BUN (7-17) MG/DL Creatinine (0.7-1.2) MG/DL GFR Calculation BUN/Creatinine Ratio (6-26) RATIO Glucose (65-110) MG/DL Glucometer 167 (65-110) mg/dL Calculated Osmolality (261-280) MOSM/KG Calcium (8.4-10.2) MG/DL Magnesium (1.6-2.3) MG/DL Icterus Index (0-7) Troponin I (0-0.12) ng/ml B-Natriuretic Peptide (0-175) pg/mL Specimen Hemolysis (0-25) - EKG Data EKG #1 EKG attestation: Yes: I reviewed and interpreted this EKG. EKG results narrative: Atrial flutter with rate of 154 (Dr. Mayorga) Critical Care Time Critical Care Time: Yes Total Critical Care Time: 50 Attestation: The high probability of a clinically significant, sudden or life threatening deterioration of the [cardiovascular/CVA] system(s) required my full and direct attention, intervention and personal management. The aggregate critical care time was [50] minutes. This time is in addition to time spent performing reported procedures but includes the following: [X] Data Review and interpretation [X] Patient assessment and monitoring of vital signs [X] Documentation [X] Medication orders and management {X} Physician consultation Disposition Clinical Impression: Heart palpitations, History of atrial fibrillation Atrial flutter Qualifiers: Atrial flutter type: unspecified Qualified Code(s): I48.92 - Unspecified atrial flutter Disposition: 02 To OBS [facility] Condition: Stable - Seen By: midlevel
[2017-01-10] MEDS ORDERED: DiltiaZEM 25 MG/5 ML INJECTION IVP ONE ×2 (20:04→20:31)
[2017-01-10] MEDS: SALINE FLUSH 10ml SYRINGE IVF PRN ×2 (20:10→20:40)
[2017-01-10] MEDS: DiltiaZEM Drip 125 MG in NS 100 ML IV SCH (21:13)
[2017-01-10] MEDS ORDERED: TRAMADOL 50 MG TABLET PO PRN (21:23)
[2017-01-10 21:44] VITALS: BMI 29.3
[2017-01-10] MEDS ORDERED: INSULIN NPH/REG 70/30 INJECTION SQ SCH (22:00)
[2017-01-10] MEDS: PRAVASTATIN 40 MG TABLET PO SCH (22:37)
[2017-01-10] MEDS: RIVAROXABAN 20 MG TABLET PO SCH (23:13)
[2017-01-11] MEDS: LATANOPROST 0.005% EYE DROPS 2.5ml LEFT EYE SCH ×2 (06:36→22:31)
[2017-01-11] MEDS: DiltiaZEM Drip 125 MG in NS 100 ML IV SCH (06:41)
[2017-01-11] MEDS ORDERED: AMIODARONE 150 MG in NS 100 ML IV ONE (13:28)
[2017-01-11] MEDS ORDERED: AMIODARONE 900 MG in NS 500ml 500 ML IV SCH ×2 (13:29→14:30)
[2017-01-11] MEDS: INSULIN NPH/REG 70/30 INJECTION SQ SCH (14:21)
[2017-01-11] MEDS: LOSARTAN 50 MG TABLET PO SCH (14:22)
--- NOTE | 2017-01-11 17:25 | Cardiology History & Physical ---
History of Present Illness Chief complaint: Atrial Fibrillation HPI: This is an 86-year-old female who presented to the ER last night after she woke and felt she was having palpitations. She states at this time she also took her BP and it showed her HR was elevated. She denies that she had any CP, SOA, or diaphoresis. States she was slightly nauseated. She states that the same thing had occurred last Monday when she had presented to the ER with an irregular rhythm and was kept over the weekend until her HR was controlled with meds, [facility] with a f/u in a month with to determine if a cardioversion would be needed or not. Review of Systems - Constitutional Constitutional: Absent: chills, fatigue, weakness - EENMT Eyes: Absent: blurry vision, change in vision - Cardiovascular Cardiovascular: Present: edema. Absent: chest pain, dyspnea on exertion Rhythm: Present: abnormal rhythm - Respiratory Respiratory: Absent: cough, dyspnea, dyspnea on exertion, wheezing - Gastrointestinal Gastrointestinal: Absent: abdominal pain, change in bowel habits, constipation, diarrhea - Genitourinary Genitourinary: Absent: dysuria, urinary frequency - Musculoskeletal Musculoskeletal: Absent: abnormal gait - Integumentary/Breasts Integumentary: Absent: rash, wounds - Neurological Neurological: Present: dizziness. Absent: loss of vision, vertigo, weakness - Psychiatric Psychiatric: Absent: anxiety - Endocrine Endocrine: Present: palpitations. Absent: flushing PFSH Medical History Updates: Atrial fibrillation, Hypertension, diabetes. spondylolisthesis, DDD, DSLD, CKD, orthostasis Surgical History: Negative Family History: No known CAD. - Social History Smoking status: Never smoker Substance use type: does not use Housing: house Household members: none service: No Current occupational exposures/hazards: No Does patient use chewing tobacco?: No Current residence: Apartment/Private Home Medications Home Medications Medication Instructions Recorded Confirmed Type Pravastatin Sodium 40 mg PO HS #0 02/17/11 01/10/17 History Insulin NPH/Reg-Don't Expunge 12 unit SQ HS #0 12/17/15 01/10/17 History [Humulin 70/30] Insulin NPH/Reg-Don't Expunge 16 unit SQ AMI #0 12/17/15 01/10/17 History [Humulin 70/30] Latanoprost 1 drop LEFT EYE HS #0 bottle 12/17/15 01/10/17 History Losartan Potassium 50 mg PO DAILY #0 tab 12/17/15 01/10/17 History Tramadol HCl 50 mg PO BID PRN #0 tab 12/17/15 01/10/17 History Allergies Allergy/AdvReac Type Severity Reaction Status Date / Time lisinopril Allergy Unknown Verified 01/10/17 20:09 metronidazole Allergy Unknown Verified 01/10/17 20:09 nitrofurantoin Allergy Unknown Verified 01/10/17 20:09 ofloxacin Allergy Unknown Verified 01/10/17 20:09 metformin AdvReac Unknown Diarrhea Verified 01/10/17 20:09 hydrocodone AdvReac Verified 01/10/17 20:09 Exam Vital signs: Temperature 98.1 F 01/11/17 11:57 Pulse Rate 90 01/11/17 11:57 Respiratory Rate 16 01/11/17 11:57 Blood Pressure 156/88 H 01/11/17 11:57 Pulse Oximetry 94 01/11/17 11:57 - Constitutional no acute distress, cooperative - Routine HEENT Exam Head: Present: normocephalic Eye: Present: EOMI ENT: Present: mucous membranes moist - Routine Neck Exam Absent: JVD, carotid bruit - Routine Respiratory Exam Present: CTA bilaterally. Absent: dyspnea, wheezes - Routine Cardiovascular Exam Present: no murmur, irregularly irregular. Absent: gallop, rubs, JVD - Routine Abdominal Exam Present: soft, normoactive bowel sounds - Routine Extremities Exam Present: no edema, pulses intact - Routine Neurological Exam Present: alert, oriented X3 - Routine Psychiatric Exam Present: normal affect, normal thought process, cooperative Results 01/12/17 04:40 01/12/17 04:40 - Imaging and Cardiology EKG results: report reviewed (Aflutter 150's on admit, aflutter - SR 70-80's with today's exam) Hospital Course This is a general summary of the patient's hospital course. For more details refer to the complete medical record. Time spent with patient: 25 - 35 minutes DVT Prophylaxis: Xarelto Assessment and Plan (1) Atrial flutter Current visit: Yes Status: Acute Was started on cardizem gtt in ER and made NPO after MN for possible CHANDRIKA/ cardioversion.This AM EKG and tele show [id number] between Aflutter and SR. Cardizem gtt d/c'd and started Amiodarone gtt per . Con't Xarelto for anticoagulation. Lab unremarkable including K+4.1, Mag 2.0. Will con't to monitor on tele. (2) HTN (hypertension) Current visit: Yes Status: Chronic Controlled. Con't home Losartan 50mg daily. (3) Hyperlipidemia Current visit: Yes Status: Chronic Continue home dose Pravastatin 40mg daily. (4) Diabetes Current visit: No Status: Chronic Resumed insulin this afternoon. Accu checks Q6H. Resume home dose insulin NPH 70 /30. - Attestation Attestation Narrative: 01/12/17 12:41 Recommendation After examining the patient I agree with the above assessment. I am involved in the formulation of the patient's plan of care. Sepsis Assessment - Evaluation Sepsis screening result: No Definite Risk
[2017-01-11] MEDS: RIVAROXABAN 20 MG TABLET PO SCH (18:05)
[2017-01-11] MEDS ORDERED: INSULIN NPH/REG 70/30 INJECTION SQ SCH (18:15)
[2017-01-11] MEDS: AMIODARONE 900 MG in NS 500ml 500 ML IV SCH (20:40)
[2017-01-11] MEDS: PRAVASTATIN 40 MG TABLET PO SCH (21:46)
[2017-01-12] MEDS: INSULIN NPH/REG 70/30 INJECTION SQ SCH (08:38)
[2017-01-12] MEDS: LOSARTAN 50 MG TABLET PO SCH (08:39)
[2017-01-12] MEDS: AMIODARONE 900 MG in NS 500ml 500 ML IV SCH (09:19)
--- NOTE | 2017-01-12 12:46 | Ultrasound Report ---
Indication: edema, erythema, pain PROCEDURE: US venous doppler LE RT: Encounter: Initial Comparison: None Technique: Color Doppler duplex and grayscale sonographic imaging of the right lower extremity was performed. Findings: There is no evidence for acute deep venous thrombosis in the right thigh. Specifically, serial graded compression was performed from the inguinal ligament to the popliteal bifurcation, on the right thigh, demonstrating appropriate compressibility of the deep venous system. In addition, color and pulsed Doppler demonstrate appropriate spontaneous flow, variation with respiration, and augmentation with calf compression. At the ankle, normal flow is identified in the posterior tibial veins; these vessels are also normal in caliber. Impression: No evidence of acute DVT in the right lower limb. .
--- NOTE | 2017-01-12 14:44 | Discharge Summary ---
<Jocelyne Oconnell - Last Filed: 01/12/17 18:49> Discharge Information Date of admission: 01/11/17 16:25 Anticipated date of discharge: 01/12/17 Attending Physician: Jeff Chavez MD Primary care physician: Sachin Carias MD Consults: None - Discharge Diagnosis (1) Diabetes Qualifiers: Diabetes mellitus type: type 2 Problem Details: Continue home insulin regimen. PCP managing. Status: Chronic (2) Atrial flutter Problem Details: Remains NSR. Con't PO amiodarone 200mg BID and Xarelto. F/u in office in 1 week with EKG. Status: Acute (3) HTN (hypertension) Problem Details: Well controlled. Continue home dose Losartan 50mg daily. Status: Chronic (4) Hyperlipidemia Problem Details: Continue home dose Pravastatin 40mg daily. Status: Chronic - Laboratory Labs: 01/12/17 04:40 01/12/17 04:40 - Radiology Radiology: Date of Exam: 01/12/17 Ordering Provider: JOCELYNE OCONNELL HOGSHEAD SALVAGE Type of Exam(s): US venous doppler LE RT Reason for Exam(s): edema, erythema, pain Indication: edema, erythema, pain PROCEDURE: US venous doppler LE RT: Encounter: Initial Comparison: None Technique: Color Doppler duplex and grayscale sonographic imaging of the right lower extremity was performed. Findings: There is no evidence for acute deep venous thrombosis in the right thigh. Specifically, serial graded compression was performed from the inguinal ligament to the popliteal bifurcation, on the right thigh, demonstrating appropriate compressibility of the deep venous system. In addition, color and pulsed Doppler demonstrate appropriate spontaneous flow, variation with respiration, and augmentation with calf compression. At the ankle, normal flow is identified in the posterior tibial veins; these vessels are also normal in caliber. Impression: No evidence of acute DVT in the right lower limb. History of Present Illness HPI: This is an 86-year-old female who presented to the ER last night after she woke and felt she was having palpitations. She states at this time she also took her BP and it showed her HR was elevated. She denies that she had any CP, SOA, or diaphoresis. States she was slightly nauseated. She states that the same thing had occurred last Monday when she had presented to the ER with an irregular rhythm and was kept over the weekend until her HR was controlled with meds, she was then sent home on cardizem and xarelto with a f/u in a month with to determine if a cardioversion would be needed or not. Hospital Course This is a general summary of the patient's hospital course. For more details refer to the complete medical record. Hospital course: Vital Signs Temp Pulse Resp BP Pulse Ox 01/12/17 12:00 72 01/12/17 11:15 70 34 H 96 01/12/17 11:00 69 29 H 158/74 H 92 01/12/17 10:45 69 28 H 94 01/12/17 10:30 69 27 H 94 01/12/17 10:15 70 31 H 93 01/12/17 10:00 70 26 H 155/66 H 93 01/12/17 09:45 71 28 H 92 01/12/17 09:30 70 27 H 94 01/12/17 09:15 70 26 H 91 01/12/17 09:00 70 25 H 149/70 H 90 01/12/17 08:45 71 25 H 92 01/12/17 08:35 65 26 H 145/67 H 92 01/12/17 08:30 65 26 H 93 01/12/17 08:25 69 26 H 01/12/17 08:00 75 01/12/17 07:30 98.6 F 68 26 H 92 01/12/17 07:15 68 24 91 01/12/17 07:00 67 22 158/69 H 92 01/12/17 06:00 67 19 158/71 H 88 L 01/12/17 05:00 69 15 154/70 H 92 01/12/17 04:00 72 30 H 144/70 H 93 01/12/17 03:00 69 23 145/67 H 93 01/12/17 02:00 71 24 152/70 H 92 01/12/17 01:00 69 17 161/74 H 90 01/12/17 00:00 98.9 F 68 16 150/67 H 93 01/11/17 23:00 67 17 150/71 H 94 01/11/17 22:00 68 24 152/71 H 93 01/11/17 21:00 66 26 H 158/78 H 92 01/11/17 20:00 67 01/11/17 19:00 67 30 H 156/77 H 96 01/11/17 18:45 71 35 H 138/80 95 01/11/17 18:30 67 30 H 136/72 94 01/11/17 18:15 67 29 H 137/73 95 01/11/17 18:00 68 30 H 142/72 H 94 01/11/17 17:45 68 29 H 142/65 H 96 01/11/17 17:30 66 19 140/69 H 94 01/11/17 17:15 67 21 137/67 94 01/11/17 17:00 68 24 139/66 92 01/11/17 16:45 67 22 139/84 94 01/11/17 16:31 67 28 H 135/88 94 01/11/17 16:30 66 24 94 01/11/17 16:15 66 22 138/63 95 01/11/17 16:00 98.2 F 73 35 H 137/65 95 Intake and Output 01/12/17 01/12/17 01/12/17 06:59 14:59 22:59 Intake Total 143.333 / 143.333 461.953 / 461.953 Output Total 200 / 200 100 / 100 Balance -56.667 / -56.667 361.953 / 361.953 Intake: IV 143.333 / 143.333 71.953 / 71.953 Cordarone 900 mg In 143.333 / 143.333 71.953 / 71.953 Normal Saline 500 ml @ 0. 5 MG/MIN 17.26 mls/hr IV .Q24H [facility] Rx#:[id number] Oral 390 / 390 Output: Urine 200 / 200 100 / 100 Other: # Voids 1 # Bowel Movements 1 1 Weight 74.8 kg Patient Weight 01/13/17 06:59 Weight 74.8 kg Laboratory Tests 01/10/17 01/10/17 01/10/17 20:03 20:03 20:03 WBC 10.5 RBC 4.66 Hgb 14.0 Hct 43.2 MCV 92.7 MCH 30.0 MCHC 32.4 RDW Std Deviation 44.9 Plt Count 266 MPV 10.7 Immature Gran % (Auto) 0.3 Neut % (Auto) 71.0 H Lymph % (Auto) 21.3 L Walton % (Auto) 6.5 Eos % (Auto) 0.7 Baso % (Auto) 0.2 Neut # 7.5 Lymph # 2.2 Walton # 0.7 Eos # 0.1 Baso # 0.0 Abs Immat Gran (auto) 0.03 Neutrophils % (Manual) Lymphocytes % (Manual) Monocytes % (Manual) Eosinophils % (Manual) Neutrophils # (Manual) Lymphocytes # (Manual) Monocytes # (Manual) Eosinophils # (Manual) RBC Morph Comment Turbidity < 20 Cancelled Sodium 140 Cancelled Potassium 4.1 Cancelled Chloride 106 Cancelled Carbon Dioxide 24 Cancelled Anion Gap 10 Cancelled BUN 24.0 H Cancelled Creatinine 1.1 Cancelled GFR Calculation 47 Cancelled BUN/Creatinine Ratio 22 Cancelled Glucose 236 H Cancelled Glucometer Calculated Osmolality 281 H Cancelled Calcium 9.3 Cancelled Magnesium 2.0 Icterus Index < 2 Cancelled Troponin I 0.020 B-Natriuretic Peptide 2010 H Specimen Hemolysis < 15 Cancelled 01/11/17 01/11/17 01/11/17 04:43 04:43 05:52 WBC 8.1 RBC 4.32 Hgb 13.0 Hct 40.4 MCV 93.5 MCH 30.1 MCHC 32.2 RDW Std Deviation 44.0 Plt Count 204 MPV 11.8 Immature Gran % (Auto) 0.1 Neut % (Auto) 61.5 Lymph % (Auto) 27.9 Walton % (Auto) 8.8 Eos % (Auto) 1.5 Baso % (Auto) 0.2 Neut # 5.0 Lymph # 2.3 Walton # 0.7 Eos # 0.1 Baso # 0.0 Abs Immat Gran (auto) 0.01 Neutrophils % (Manual) Lymphocytes % (Manual) Monocytes % (Manual) Eosinophils % (Manual) Neutrophils # (Manual) Lymphocytes # (Manual) Monocytes # (Manual) Eosinophils # (Manual) RBC Morph Comment Turbidity < 20 Sodium 142 Potassium 3.7 Chloride 107 Carbon Dioxide 28 Anion Gap 7 BUN 22.0 H Creatinine 1.0 GFR Calculation 53 BUN/Creatinine Ratio 22 Glucose 98 Glucometer 106 Calculated Osmolality 276 Calcium 9.0 Magnesium 2.1 Icterus Index < 2 Troponin I B-Natriuretic Peptide Specimen Hemolysis < 15 01/11/17 01/11/17 01/11/17 14:22 17:56 21:23 WBC RBC Hgb Hct MCV MCH MCHC RDW Std Deviation Plt Count MPV Immature Gran % (Auto) Neut % (Auto) Lymph % (Auto) Walton % (Auto) Eos % (Auto) Baso % (Auto) Neut # Lymph # Walton # Eos # Baso # Abs Immat Gran (auto) Neutrophils % (Manual) Lymphocytes % (Manual) Monocytes % (Manual) Eosinophils % (Manual) Neutrophils # (Manual) Lymphocytes # (Manual) Monocytes # (Manual) Eosinophils # (Manual) RBC Morph Comment Turbidity Sodium Potassium Chloride Carbon Dioxide Anion Gap BUN Creatinine GFR Calculation BUN/Creatinine Ratio Glucose Glucometer 167 189 242 Calculated Osmolality Calcium Magnesium Icterus Index Troponin I B-Natriuretic Peptide Specimen Hemolysis 01/12/17 01/12/17 01/12/17 04:40 04:40 05:49 WBC 9.0 RBC 4.11 Hgb 12.2 Hct 38.7 MCV 94.2 MCH 29.7 MCHC 31.5 RDW Std Deviation 44.3 Plt Count 182 MPV 12.2 Immature Gran % (Auto) Neut % (Auto) Lymph % (Auto) Walton % (Auto) Eos % (Auto) Baso % (Auto) Neut # Lymph # Walton # Eos # Baso # Abs Immat Gran (auto) Neutrophils % (Manual) 68.0 H Lymphocytes % (Manual) 19.0 L Monocytes % (Manual) 12.0 H Eosinophils % (Manual) 1.0 Neutrophils # (Manual) 6.1 Lymphocytes # (Manual) 1.7 Monocytes # (Manual) 1.1 H Eosinophils # (Manual) 0.1 RBC Morph Comment Normal Turbidity < 20 Sodium 143 Potassium 3.9 Chloride 109 H Carbon Dioxide 27 Anion Gap 7 BUN 25.0 H Creatinine 1.1 GFR Calculation 47 BUN/Creatinine Ratio 23 Glucose 118 H Glucometer 142 Calculated Osmolality 280 Calcium 8.8 Magnesium Icterus Index < 2 Troponin I B-Natriuretic Peptide Specimen Hemolysis < 15 01/12/17 11:17 WBC RBC Hgb Hct MCV MCH MCHC RDW Std Deviation Plt Count MPV Immature Gran % (Auto) Neut % (Auto) Lymph % (Auto) Walton % (Auto) Eos % (Auto) Baso % (Auto) Neut # Lymph # Walton # Eos # Baso # Abs Immat Gran (auto) Neutrophils % (Manual) Lymphocytes % (Manual) Monocytes % (Manual) Eosinophils % (Manual) Neutrophils # (Manual) Lymphocytes # (Manual) Monocytes # (Manual) Eosinophils # (Manual) RBC Morph Comment Turbidity Sodium Potassium Chloride Carbon Dioxide Anion Gap BUN Creatinine GFR Calculation BUN/Creatinine Ratio Glucose Glucometer 288 Calculated Osmolality Calcium Magnesium Icterus Index Troponin I B-Natriuretic Peptide Specimen Hemolysis Time spent with patient: 25 - 35 minutes DVT Prophylaxis: Xarelto Exam Vital signs: Temperature 98.6 F 01/12/17 07:30 Pulse Rate 72 01/12/17 12:00 Respiratory Rate 34 H 01/12/17 11:15 Blood Pressure 158/74 H 01/12/17 11:00 Pulse Oximetry 96 01/12/17 11:15 Oxygen Delivery Method Room Air Narrative: Patient doing well today. Has remained in NSR since starting Amiodarone gtt. Denies any CP, palpitations, SOA, N/V, diaphoresis. During exam RN came in and pointed out that patient has been c/o edema to her right foot. On exam entire RLE appeared slightly edematous with notable edema to all digits and plantar portion of foot. Also noted erythema to the anterior lower leg and slight tenderness to touch. Also noted increased warmth to RLE compared to the LLE. Palpable pedal and DP pulses bilaterally. Patient denied any CP, palpitations, SOA, N/V and/or diaphoresis. STAT venous doppler ordered and showed not DVT. Patient was notified to f/u with her PCP on discharge. - Constitutional no acute distress, cooperative - Routine HEENT Exam Head: Present: normocephalic Eye: Present: EOMI ENT: Present: mucous membranes moist - Routine Neck Exam Absent: JVD, carotid bruit, lymphadenopathy - Routine Respiratory Exam Present: CTA bilaterally. Absent: dyspnea, wheezes - Routine Cardiovascular Exam Present: RRR, no murmur. Absent: gallop, rubs, JVD - Routine Abdominal Exam Present: soft, normoactive bowel sounds, non distended - Routine Extremities Exam Present: edema, pulses intact. Absent: cyanosis, non tender, extremity cold to touch Comments: Non-pitting edema to RLE. - Routine Back/Spine/Pelvis Exam Back/Spine: Present: full ROM - Routine Skin Exam Present: intact, dry, warm. Absent: wounds, rash - Routine Neurological Exam Present: alert, oriented X3 - Routine Psychiatric Exam Present: normal affect, normal thought process, good judgment Results 01/12/17 04:40 01/12/17 04:40 CBC 01/12/17 Range/Units 04:40 WBC 9.0 (4.5-11.0) T/MM3 RBC 4.11 (4.00-5.20) M/MM3 Hgb 12.2 (12-16) GM/DL Hct 38.7 (36-46) % Plt Count 182 (130-400) T/MM3 Comprehensive Metabolic Panel 01/12/17 Range/Units 04:40 Sodium 143 (134-144) MEQ/L Potassium 3.9 (3.6-5) MEQ/L Chloride 109 H (98-107) MEQ/L Carbon Dioxide 27 (22-30) MEQ/L BUN 25.0 H (7-17) MG/DL Creatinine 1.1 (0.7-1.2) MG/DL Glucose 118 H (65-110) MG/DL Calcium 8.8 (8.4-10.2) MG/DL Intake and Output 01/11/17 01/12/17 01/12/17 22:59 06:59 14:59 Intake Total 415.67 / 668.906 143.333 / 143.333 461.953 / 461.953 Output Total 300 / 600 200 / 200 100 / 100 Balance 115.67 / 68.906 -56.667 / -56.667 361.953 / 361.953 Intake: IV 195.67 / 208.906 143.333 / 143.333 71.953 / 71.953 Cordarone 900 mg In 195.67 / 208.906 143.333 / 143.333 71.953 / 71.953 Normal Saline 500 ml @ 0. 5 MG/MIN 17.26 mls/hr IV .Q24H [facility] Rx#:[id number] Oral 220 / 460 390 / 390 Output: Urine 300 / 600 200 / 200 100 / 100 Other: # Voids 1 # Bowel Movements 1 1 1 Weight 74.8 kg Patient Weight 01/13/17 06:59 Weight 74.8 kg - Imaging and Cardiology EKG results: report reviewed - EKG Interpretation EKG shows: sinus rhythm (w/LBBB) Discharge Plan - Med Rec/Dispo Referrals/Follow Up: Jeff Chavez MD [Physician] - [place] Instructions: Atrial Flutter (DC) Prescriptions: New Amiodarone [Pacerone] 200 mg PO BID #60 tablet Continue Insulin NPH/Reg-Don't Expunge [Humulin 70/30] 12 unit SQ HS #0 Tramadol HCl 50 mg PO BID PRN #0 tab PRN Reason: Pain Rivaroxaban [Xarelto] 20 mg PO WS tablet Pravastatin Sodium 40 mg PO HS #0 Insulin NPH/Reg-Don't Expunge [Humulin 70/30] 16 unit SQ AMI #0 Latanoprost 1 drop LEFT EYE HS #0 bottle Losartan Potassium 50 mg PO DAILY #0 tab Discontinued DiltiaZEM CD [Cardizem Cd] 480 mg PO HS capsule - Disposition 01 Discharged Home, Self-Care <Jeff Chavez - Last Filed: 01/13/17 15:00> Discharge Information Date of admission: 01/11/17 16:25 Attending Physician: Jeff Chavez MD Primary care physician: Sachin Carias MD - Discharge Diagnosis (1) Diabetes Qualifiers: Diabetes mellitus type: type 2 Problem Details: Continue home insulin regimen. PCP managing. Status: Chronic (2) Atrial flutter Problem Details: Remains NSR. Con't PO amiodarone 200mg BID and Xarelto. F/u in office in 1 week with EKG. Status: Acute (3) HTN (hypertension) Problem Details: Well controlled. Continue home dose Losartan 50mg daily. Status: Chronic (4) Hyperlipidemia Problem Details: Continue home dose Pravastatin 40mg daily. Status: Chronic - Laboratory Labs: 01/12/17 04:40 01/12/17 04:40 Hospital Course This is a general summary of the patient's hospital course. For more details refer to the complete medical record. Exam Vital signs: Temperature 99.1 F 01/12/17 12:05 Pulse Rate 71 01/12/17 15:00 Respiratory Rate 17 01/12/17 15:00 Blood Pressure 165/73 H 01/12/17 15:00 Pulse Oximetry 94 01/12/17 15:00 Oxygen Delivery Method Room Air Results 01/12/17 04:40 01/12/17 04:40 Discharge Plan - Med Rec/Dispo - Attestation Attestation Narrative: 01/13/17 14:59 Recommendation After examining the patient I agree with the above assessment. I am involved in the formulation of the patient's plan of care.
[2017-01-12 17:24] VITALS: BP 165/73; PULSE 71; RESP 17; TEMP 99.1; O2SAT 94
[2017-01-12] MEDS ORDERED: AMIODARONE 200 MG TABLET PO SCH (21:00)
== END 2017-01-12 15:30 | disposition home or self-care (01) | DRG 310 ==
LOC: ED 19:41 → CCU 19:41
PROVIDERS: ADMIT Internal Medicine Cardiovascular Disease; ATTEND Internal Medicine Cardiovascular Disease

== ENCOUNTER 2017-02-05 09:55 | Observation (INO) ==
[2017-02-05] MEDS: SALINE FLUSH 10ml SYRINGE IVF PRN ×3 (10:15→22:13)
--- NOTE | 2017-02-05 10:24 | Emergency Department Report ---
SOB HPI - General Chief Complaint: Shortness of Breath/Dyspnea Stated Complaint: Shortness of breath/vomiting Time Seen by Provider: 02/05/17 10:03 - History of Present Illness 86-year-old female presents with shortness of breath and weakness. Patient was diagnosed with atrial fibrillation approximately 4 weeks ago. She was kept in hospital for a couple days while Cardizem was given and rate was controlled. She was discharged initially on Cardizem, had to return a few days later because she was back in atrial fibrillation. They then readmitted here and started her on amiodarone, she stabilized and was discharged. She states that since that time she was discharged she is felt tired and short of breath, it is gotten worse over the last few days. Today was bad enough that she really felt like she could not do anything, had no energy whatsoever. She did have her triamterene stopped as she has had worsening kidney function recently. Currently she does take Xarelto. Patient was seen in the office within the last 3 days, started on Bactrim for a UTI. She feels like the symptoms of dysuria improved, but definitely or shortness of breath and overall fatigue have worsened in the last 3 days. No fever recently, however she did feel like vomiting last night. In fact she tried a couple of times but was unable to bring anything up. - Related Data Home Medications Medication Instructions Recorded Confirmed Pravastatin Sodium 40 mg PO HS #0 02/17/11 02/05/17 Insulin NPH/Reg-Don't Expunge 12 unit SQ HS #0 12/17/15 02/05/17 [Humulin 70/30] Insulin NPH/Reg-Don't Expunge 16 unit SQ AMI #0 12/17/15 02/05/17 [Humulin 70/30] Latanoprost 1 drop LEFT EYE HS #0 bottle 12/17/15 02/05/17 Tramadol HCl 50 mg PO BID PRN #0 tab 12/17/15 02/05/17 Previous Rx's Medication Instructions Recorded Rivaroxaban [Xarelto] 20 mg PO WS tablet 01/08/17 Allergies Allergy/AdvReac Type Severity Reaction Status Date / Time lisinopril Allergy Unknown Verified 02/05/17 10:10 metronidazole Allergy Unknown Verified 02/05/17 10:10 nitrofurantoin Allergy Unknown Verified 02/05/17 10:10 ofloxacin Allergy Unknown Verified 02/05/17 10:10 metformin AdvReac Unknown Diarrhea Verified 02/05/17 10:10 hydrocodone AdvReac Verified 02/05/17 10:10 Review of Systems All systems: reviewed and negative except as stated PFSH Patient Stated Medical History Cataracts Yes Cardiac Arrhythmia Yes: a-fib Hypertension Yes Other Cardiology Yes: hyperlipidemia Diabetes Mellitus Type 2 Yes Other GI Yes: Constipation Hx Urinary Tract Infection Yes: UTI with Sepsis 12/2015 Other Musculoskeletal Yes: Scoliosis, pinched nerves Sepsis Yes: UTI Shingles Yes Medical History Updates: Atrial fibrillation, Hypertension, diabetes. spondylolisthesis, DDD, DSLD, CKD, orthostasis Surgical History: Negative - Social History Smoking status: Never smoker Substance use type: does not use Alcohol intake frequency: does not drink Physical Exam - Limitations Limitations: no limitations - General General appearance: alert, other (obvious fatigue) - Normal Exams: Head:: Normocephalic without trauma Eyes:: Pupils are PERRLA w/ EOMI, No scleral icterus, irritation, or foreign bodies noted Neck:: Full range of motion, without adenopathy, JVD, bruits or thyromegaly Chest/Respirations:: Clear all fitzpatrick, with good airflow, and symmetry bilaterally Cardiovascular:: Regular rate and rhythm, without murmur or gallop, Pulses 2+ all extremities, capillary refill, <2 seconds all extremities Abdomen:: Bowel sounds positive, soft, non-tender, non-distended, no hepatosplenomegaly, masses or bruits noted Neurological:: Patient is alert, and oriented, cranial nerves, motor/sensory/ cerebellar, exams w/o gross deficits, to observation Psychiatric:: Patient exhibits, appropriate attention, emotion and affect Course Vital Signs Temperature 98.6 F 02/05/17 09:56 Pulse Rate 54 L 02/05/17 09:56 Respiratory Rate 16 02/05/17 09:56 Blood Pressure 183/84 H 02/05/17 09:56 Pulse Oximetry 99 02/05/17 09:56 Temperature 97.6 F 02/07/17 07:00 Pulse Rate 68 02/07/17 07:49 Respiratory Rate 18 02/07/17 07:00 Blood Pressure 119/67 02/07/17 07:49 Pulse Oximetry 96 02/07/17 07:00 Shortness of Breath/Dyspnea - [facility] Narrative Medical decision making narrative: Heart rate noted to be 54 despite other vitals stable. Likely culprit is amiodarone. Spoke with Dr. Chavez and patient will require hospital admission due to previous failure and controlling atrial fibrillation and now side effect from amiodarone. Patient given 1 L normal saline IV fluid, labs checked and returned negative. EKG appropriate except for bradycardia. Patient admitted in stable condition. - Differential Diagnosis Likely: congestive heart failure, pulmonary embolism - Lab Data Result diagrams: 02/07/17 04:19 02/07/17 04:19 Lab Results 02/05/17 02/05/17 02/05/17 Range/Units 10:17 10:21 10:21 WBC 7.5 (4.5-11.0) T/MM3 RBC 5.14 (4.00-5.20) M/MM3 Hgb 15.5 (12-16) GM/DL Hct 46.5 H (36-46) % MCV 90.5 (80-100) UM3 MCH 30.2 (26-34) UUG MCHC 33.3 (31-37) GM/DL RDW Std Deviation 45.0 (36.9-50.2) FL Plt Count 266 D (130-400) T/MM3 MPV 11.6 (9.4-12.4) UM3 Immature Gran % (Auto) 0.3 (0.0-0.5) % Neut % (Auto) 72.6 H (33-66) % Lymph % (Auto) 18.2 L (23-45) % [place] % (Auto) 7.9 (0-9.0) % Eos % (Auto) 0.9 (0-4) % Baso % (Auto) 0.1 (0-2) % Neut # 5.4 (1.8-7.7) T/MM3 Lymph # 1.4 (1-4.8) T/MM3 [place] # 0.6 (0-0.8) T/MM3 Eos # 0.1 (0-0.5) T/MM3 Baso # 0.0 (0-0.2) T/MM3 Abs Immat Gran (auto) 0.02 (0.00-0.03) T/MM3 D-Dimer (0-230) NG/ML Turbidity < 20 (0-20) Sodium 139 (134-144) MEQ/L Potassium 4.4 (3.6-5) MEQ/L Chloride 101 (98-107) MEQ/L Carbon Dioxide 23 (22-30) MEQ/L Anion Gap 15 (5-15) MEQ/L BUN 35.0 H (7-17) MG/DL Creatinine 1.7 H (0.7-1.2) MG/DL GFR Calculation 28 BUN/Creatinine Ratio 21 (6-26) RATIO Glucose 187 H (65-110) MG/DL Calculated Osmolality 281 H (261-280) MOSM/KG Calcium 9.6 (8.4-10.2) MG/DL Total Bilirubin 1.00 (0.20-1.30) MG/DL Icterus Index < 2 (0-7) AST 17 (14-36) U/L ALT 25 (9-52) U/L Alkaline Phosphatase 87 (38-126) U/L Troponin I 0.018 (0-0.12) ng/ml B-Natriuretic Peptide 677 H (0-175) pg/mL Total Protein 7.1 (6.3-8.2) G/DL Albumin 4.3 (3.5-5.0) G/DL Globulin 2.8 (2.4-3.6) G/DL Albumin/Globulin Ratio 1.5 (1.1-2.2) RATIO TSH 4.28 (0.47-4.68) MIU/L Specimen Hemolysis < 15 (0-25) Ur Collection Type Urine Color Urine Clarity Urine pH Ur Specific [place] Urine Protein Urine Glucose (UA) Urine Ketones Urine Occult Blood Urine Nitrate Urine Bilirubin Urine Urobilinogen Ur Leukocyte Esterase Urine RBC Urine WBC Urine WBC Clumps Ur Squamous Epith Cells Ur Transition Epith Cell Ur Renal Epithelial Cell Calcium Carbonate Cryst Calcium Phosphate Cryst Calcium Oxalate Crystal Cystine Crystals Uric Acid Crystals Triple Phos Crystals Tyrosine Crystals Amorphous Sediment Urine Bacteria Fatty Casts Hyaline Casts Granular Casts Waxy Casts RBC Casts WBC Casts Hemoglobin Casts Urine Starch Urine Mucus Urine Trichomonas Urine Yeast Urine Sperm Ur Oval Fat Bodies Ur Culture Indicated? Urinalysis Comment 02/05/17 02/05/17 02/05/17 Range/Units 10:21 12:50 12:50 WBC (4.5-11.0) T/MM3 RBC (4.00-5.20) M/MM3 Hgb (12-16) GM/DL Hct (36-46) % MCV (80-100) UM3 MCH (26-34) UUG MCHC (31-37) GM/DL RDW Std Deviation (36.9-50.2) FL Plt Count (130-400) T/MM3 MPV (9.4-12.4) UM3 Immature Gran % (Auto) (0.0-0.5) % Neut % (Auto) (33-66) % Lymph % (Auto) (23-45) % [place] % (Auto) (0-9.0) % Eos % (Auto) (0-4) % Baso % (Auto) (0-2) % Neut # (1.8-7.7) T/MM3 Lymph # (1-4.8) T/MM3 [place] # (0-0.8) T/MM3 Eos # (0-0.5) T/MM3 Baso # (0-0.2) T/MM3 Abs Immat Gran (auto) (0.00-0.03) T/MM3 D-Dimer < 150 (0-230) NG/ML Turbidity (0-20) Sodium (134-144) MEQ/L Potassium (3.6-5) MEQ/L Chloride (98-107) MEQ/L Carbon Dioxide (22-30) MEQ/L Anion Gap (5-15) MEQ/L BUN (7-17) MG/DL Creatinine (0.7-1.2) MG/DL GFR Calculation BUN/Creatinine Ratio (6-26) RATIO Glucose (65-110) MG/DL Calculated Osmolality (261-280) MOSM/KG Calcium (8.4-10.2) MG/DL Total Bilirubin (0.20-1.30) MG/DL Icterus Index (0-7) AST (14-36) U/L ALT (9-52) U/L Alkaline Phosphatase (38-126) U/L Troponin I (0-0.12) ng/ml B-Natriuretic Peptide (0-175) pg/mL Total Protein (6.3-8.2) G/DL Albumin (3.5-5.0) G/DL Globulin (2.4-3.6) G/DL Albumin/Globulin Ratio (1.1-2.2) RATIO TSH (0.47-4.68) MIU/L Specimen Hemolysis (0-25) Ur Collection Type Cancelled Urine, clean catch Urine Color Cancelled Yellow Urine Clarity Cancelled Clear Urine pH Cancelled 6.0 Ur Specific [place] Cancelled <=1.005 L Urine Protein Cancelled Negative Urine Glucose (UA) Cancelled Negative Urine Ketones Cancelled Negative Urine Occult Blood Cancelled Trace-intact Urine Nitrate Cancelled Negative Urine Bilirubin Cancelled Negative Urine Urobilinogen Cancelled 0.2 Ur Leukocyte Esterase Cancelled Trace A Urine RBC Cancelled Urine WBC Cancelled Urine WBC Clumps Cancelled Ur Squamous Epith Cells Cancelled Ur Transition Epith Cell Cancelled Ur Renal Epithelial Cell Cancelled Calcium Carbonate Cryst Cancelled Calcium Phosphate Cryst Cancelled Calcium Oxalate Crystal Cancelled Cystine Crystals Cancelled Uric Acid Crystals Cancelled Triple Phos Crystals Cancelled Tyrosine Crystals Cancelled Amorphous Sediment Cancelled Urine Bacteria Cancelled Fatty Casts Cancelled Hyaline Casts Cancelled Granular Casts Cancelled Waxy Casts Cancelled RBC Casts Cancelled WBC Casts Cancelled Hemoglobin Casts Cancelled Urine Starch Cancelled Urine Mucus Cancelled Urine Trichomonas Cancelled Urine Yeast Cancelled Urine Sperm Cancelled Ur Oval Fat Bodies Cancelled Ur Culture Indicated? Cancelled Urinalysis Comment Cancelled Microscopic not ind. Disposition Clinical Impression: SHORTNESS OF AIR, Bradycardia, History of atrial fibrillation Disposition: 02 To [facility] Condition: Stable Time of Disposition: 14:33 - Seen By: physician
[2017-02-05] MEDS ORDERED: ONDANSETRON 4 MG/2 ML INJECTION IV ONE (11:57)
[2017-02-05 16:08] VITALS: BMI 28.3
[2017-02-05] MEDS ORDERED: TRAMADOL 50 MG TABLET PO PRN (18:06)
--- NOTE | 2017-02-05 18:12 | Cardiology History & Physical ---
History of Present Illness Chief complaint: weakness, dyspnea, near syncope HPI: 86-year-old female presented with shortness of breath and weakness to the ED this afternoon. She was diagnosed with atrial fibrillation approximately 4 weeks ago and admitted by our service, she converted to SR and sent home on po Cardizem and Xarelto. She returned to ED a few days later back in atrial fibrillation. She was readmitted and started on amiodarone, she converted to SR and sent home on amio 200mg bid. She states since discharge she felt tired and short of breath, worsened over the last few days. She was seen by her PCP monday and found to have a UTI, bactrim was initiated. She admits this is a recurrent problem for her. Her PCP also dc'd her bhupendra. Her fatigue worsened significantly today and she was unable to ambulate safely and had near syncope every time she stood up. She denies falls. She reports abdominal pain, anorexia, nausea and dry heaves; onset after starting amiodarone. Review of Systems - Constitutional Constitutional: Present: anorexia, fatigue, weakness - EENMT Eyes: Present: requires corrective lenses Balance: Absent: vertigo Mouth/Throat: Absent: sore throat - Cardiovascular Cardiovascular: Absent: chest pain, palpitations, syncope, dyspnea on exertion Rhythm: Present: abnormal rhythm Vascular: Absent: pedal edema - Respiratory Respiratory: Present: dyspnea, dyspnea on exertion. Absent: cough, excessive phlegm production - Gastrointestinal Gastrointestinal: Present: abdominal pain, nausea. Absent: dysphagia, vomiting - Genitourinary Genitourinary: Present: dysuria - Musculoskeletal Musculoskeletal: Present: muscle weakness - Integumentary/Breasts Integumentary: Absent: erythema, rash - Neurological Neurological: Present: dizziness, weakness - Psychiatric Psychiatric: Absent: anxiety - Endocrine Endocrine: Absent: palpitations - Hematologic/Lymphatic Hematologic/Lymphatic: Absent: easy bruising - Allergic/Immunologic Allergic/Immunologic: Absent: seasonal rhinorrhea PFSH Patient Stated Medical History Cataracts Yes Cardiac Arrhythmia Yes: a-fib Hypertension Yes Other Cardiology Yes: hyperlipidemia Diabetes Mellitus Type 2 Yes Other GI Yes: Constipation Hx Urinary Tract Infection Yes: UTI with Sepsis 12/2015 Other Musculoskeletal Yes: Scoliosis, pinched nerves Sepsis Yes: UTI Shingles Yes Medical History Updates: Atrial fibrillation, Hypertension, diabetes. spondylolisthesis, DDD, DSLD, CKD, orthostasis Surgical History: Negative Family History: noncontributory - Social History Smoking status: Never smoker Current occupational status: retired Medications Home Medications Medication Instructions Recorded Confirmed Type Pravastatin Sodium 40 mg PO HS #0 02/17/11 02/05/17 History Insulin NPH/Reg-Don't Expunge 12 unit SQ HS #0 12/17/15 02/05/17 History [Humulin 70/30] Insulin NPH/Reg-Don't Expunge 16 unit SQ AMI #0 12/17/15 02/05/17 History [Humulin 70/30] Latanoprost 1 drop LEFT EYE HS #0 bottle 12/17/15 02/05/17 History Losartan Potassium 50 mg PO DAILY #0 tab 12/17/15 02/05/17 History Tramadol HCl 50 mg PO BID PRN #0 tab 12/17/15 02/05/17 History Sulfamethox/Tmp [Bactrim Ds] 1 tab PO BID 02/05/17 02/05/17 History Allergies Allergy/AdvReac Type Severity Reaction Status Date / Time lisinopril Allergy Unknown Verified 02/05/17 10:10 metronidazole Allergy Unknown Verified 02/05/17 10:10 nitrofurantoin Allergy Unknown Verified 02/05/17 10:10 ofloxacin Allergy Unknown Verified 02/05/17 10:10 metformin AdvReac Unknown Diarrhea Verified 02/05/17 10:10 hydrocodone AdvReac Verified 02/05/17 10:10 Exam Vital signs: Temperature 98.2 F 02/05/17 16:11 Pulse Rate 56 L 02/05/17 16:11 Respiratory Rate 18 02/05/17 16:11 Blood Pressure 154/79 H 02/05/17 16:11 Pulse Oximetry 95 02/05/17 16:11 Oxygen Delivery Method Room Air - Constitutional no acute distress, well nourished, well developed, average body habitus, cooperative - Routine HEENT Exam Head: Present: normocephalic, atraumatic Eye: Present: PERRL, conjunctivae pink ENT: Present: mucous membranes moist Nose: moist mucous membranes - Routine Neck Exam Present: supple. Absent: JVD, carotid bruit - Routine Respiratory Exam Present: CTA bilaterally - Routine Cardiovascular Exam Present: RRR - Routine Abdominal Exam Present: soft, normoactive bowel sounds, non tender - Routine Extremities Exam Present: no edema, pulses intact - Routine Back/Spine/Pelvis Exam Back/Spine: Absent: full ROM - Routine Skin Exam Present: intact - Routine Psychiatric Exam Present: normal affect, normal thought process Results 02/05/17 10:21 02/05/17 10:21 Intake and Output 02/05/17 02/05/17 02/05/17 06:59 14:59 22:59 Other: Weight 72.5 kg Patient Weight 02/06/17 06:59 Weight 72.5 kg 02/05/17 10:21 02/05/17 10:21 - Imaging and Cardiology EKG results: image reviewed - EKG Interpretation EKG shows: bradycardia (sb [id number]) Hospital Course This is a general summary of the patient's hospital course. For more details refer to the complete medical record. Time spent with patient: 25 - 35 minutes DVT Prophylaxis: Xarelto GI Prophylaxis: other Assessment and Plan (1) Sinus bradycardia Current visit: Yes Status: Acute Decrease amiodarone from 200mg bid to 200mg daily. Monitor tele overnight. ECG in AM. (2) Atrial fibrillation Current visit: No Status: Acute Amiodarone reduced to 200mg daily. (3) HTN (hypertension) Problem details: Well controlled. Continue home dose Losartan 50mg daily. Current visit: No Status: Chronic resume losartan 50mg daily, monitor. (4) Diabetes Problem details: Continue home insulin regimen. PCP managing. Current visit: No Status: Chronic home insulin dosage, blood glucose checks, diabetic diet. (5) Hyperlipidemia Problem details: Continue home dose Pravastatin 40mg daily. Current visit: No Status: Chronic (6) UTI (urinary tract infection) Current visit: Yes Status: Acute continue bactrim, ua dip negative for bacteria or wbc's - Attestation Attestation Narrative: 02/06/17 13:37 Recommendation After examining the patient I agree with the above assessment. I am involved in the formulation of the patient's plan of care. Sepsis Assessment - Evaluation Sepsis screening result: No Definite Risk
[2017-02-05] MEDS: --POM--RIVAROXABAN 20 MG TABLET PO SCH (18:53)
[2017-02-05] MEDS ORDERED: LATANOPROST 0.005% EYE DROPS 2.5ml LEFT EYE SCH (21:00)
[2017-02-05] MEDS: [UNRECOGNIZED DRUG - OTHER] PO SCH (21:34)
[2017-02-05] MEDS: TMP PO SCH (21:34)
[2017-02-05] MEDS: SULFAMETHOXAZOLE PO SCH (21:34)
[2017-02-05] MEDS: --POM--PRAVASTATIN 40 MG TABLET PO SCH (21:35)
[2017-02-05] MEDS: LATANOPROST 0.005% EYE DROPS 2.5ml LEFT EYE SCH (22:04)
[2017-02-05] MEDS: INSULIN NPH/REG 70/30 INJECTION SQ SCH (22:08)
--- NOTE | 2017-02-06 08:10 | XRay Report ---
LOCATION OF DICTATION: [place] EXAM: XR chest 2V HISTORY: SOA COMPARISON: January 06, 2017. FINDINGS: The heart size is normal. The mediastinal configuration is unremarkable. There are no consolidating opacities or pleural effusions. There is no evidence for a pneumothorax. The osseous structures are within normal limits. Surgical clips overlie the epigastric region. IMPRESSION: No acute cardiopulmonary abnormality is identified. .
[2017-02-06] MEDS: INSULIN NPH/REG 70/30 INJECTION SQ SCH ×2 (08:24→22:45)
[2017-02-06] MEDS: TMP PO SCH (08:25)
[2017-02-06] MEDS: --POM--AMIODARONE 200 MG TABLET PO SCH (08:25)
[2017-02-06] MEDS: [UNRECOGNIZED DRUG - OTHER] PO SCH (08:25)
[2017-02-06] MEDS: SULFAMETHOXAZOLE PO SCH (08:25)
[2017-02-06] MEDS ORDERED: --POM--LOSARTAN 50 MG TABLET PO SCH (09:00)
[2017-02-06] MEDS: NS 1,000 ML IV SCH ×2 (14:41→22:54)
--- NOTE | 2017-02-06 14:43 | Cardiology Progress Note ---
Subjective Principal diagnosis: Weakness, dyspnea, near syncope <Romy Osorio - 14:47> Interval history: Jovita is seen in her room with her daughter at the bedside. She states that she came to the hospital due to generalized weakness and shortness of breath with any activity. Her daughter states that no one has to yet figure out what the cause is for her mothers symptoms. She states she is concerned that if she takes her home she will return again to the hospital in time. Explained that there has been no evidence to indicate her heart is the cause but will consult with the hospitalists for other causes. <Romy Osorio - 02/06/17 15:58> Exam Vital signs: Temperature 97.6 F 02/07/17 07:00 Pulse Rate 68 02/07/17 07:49 Respiratory Rate 18 02/07/17 07:00 Blood Pressure 119/67 02/07/17 07:49 Pulse Oximetry 96 02/07/17 07:00 Oxygen Delivery Method Room Air <Jeff Chavez - 02/07/17 13:41> Temperature 97.1 F 02/06/17 08:00 Pulse Rate 51 L 02/06/17 08:00 Respiratory Rate 16 02/06/17 08:00 Blood Pressure 143/64 H 02/06/17 08:00 Pulse Oximetry 93 02/06/17 08:00 Oxygen Delivery Method Room Air <Romy Osorio - 02/06/17 14:47> - Constitutional no acute distress, well nourished, obese, cooperative <Romy Osorio 14:47> - Routine HEENT Exam Head: Present: normocephalic <Romy Osorio 02/06/17 14:47> ENT: Present: mucous membranes moist <Romy Osorio 02/06/17 14:47> - Routine Neck Exam Absent: JVD, carotid bruit <Romy Osorio 02/06/17 14:47> - Routine Chest/Breast/Axilla Exam Chest wall: Absent: tenderness <Romy Osorio 02/06/17 14:47> - Routine Respiratory Exam Present: CTA bilaterally. Absent: rales, wheezes <Romy Osorio 02/06/17 14:47> - Routine Cardiovascular Exam Present: no murmur, bradycardia. Absent: JVD <Romy Osorio - 02/06/17 14:47 > - Routine Abdominal Exam Present: soft, normoactive bowel sounds <Romy Osorio - 02/06/17 14:47> - Routine Extremities Exam Present: edema <Romy Osorio - 02/06/17 14:47> - Routine Skin Exam Present: intact, dry, warm <Romy Osorio - 02/06/17 14:47> - Routine Neurological Exam Present: alert, oriented X3 <Romy Osorio 02/06/17 14:47> - Routine Psychiatric Exam Present: normal affect, normal thought process <Romy Osorio 02/06/17 14: 47> - Additional findings Additional findings: Laboratory Results - last 48 hr 02/05/17 02/05/17 02/05/17 10:17 10:21 10:21 WBC 7.5 RBC 5.14 Hgb 15.5 Hct 46.5 H MCV 90.5 MCH 30.2 MCHC 33.3 RDW Std Deviation 45.0 Plt Count 266 D MPV 11.6 Immature Gran % (Auto) 0.3 Neut % (Auto) 72.6 H Lymph % (Auto) 18.2 L [place] % (Auto) 7.9 Eos % (Auto) 0.9 Baso % (Auto) 0.1 Neut # 5.4 Lymph # 1.4 [place] # 0.6 Eos # 0.1 Baso # 0.0 Abs Immat Gran (auto) 0.02 D-Dimer Turbidity < 20 Sodium 139 Potassium 4.4 Chloride 101 Carbon Dioxide 23 Anion Gap 15 BUN 35.0 H Creatinine 1.7 H GFR Calculation 28 BUN/Creatinine Ratio 21 Glucose 187 H Glucometer Calculated Osmolality 281 H Calcium 9.6 Total Bilirubin 1.00 Icterus Index < 2 AST 17 ALT 25 Alkaline Phosphatase 87 Troponin I 0.018 B-Natriuretic Peptide 677 H Total Protein 7.1 Albumin 4.3 Globulin 2.8 Albumin/Globulin Ratio 1.5 TSH 4.28 Specimen Hemolysis < 15 Ur Collection Type Urine Color Urine Clarity Urine pH Ur Specific [place] Urine Protein Urine Glucose (UA) Urine Ketones Urine Occult Blood Urine Nitrate Urine Bilirubin Urine Urobilinogen Ur Leukocyte Esterase Urine RBC Urine WBC Urine WBC Clumps Ur Squamous Epith Cells Ur Transition Epith Cell Ur Renal Epithelial Cell Calcium Carbonate Cryst Calcium Phosphate Cryst Calcium Oxalate Crystal Cystine Crystals Uric Acid Crystals Triple Phos Crystals Tyrosine Crystals Amorphous Sediment Urine Bacteria Fatty Casts Hyaline Casts Granular Casts Waxy Casts RBC Casts WBC Casts Hemoglobin Casts Urine Starch Urine Mucus Urine Trichomonas Urine Yeast Urine Sperm Ur Oval Fat Bodies Ur Culture Indicated? Urinalysis Comment 02/05/17 02/05/17 02/05/17 10:21 12:50 12:50 WBC RBC Hgb Hct MCV MCH MCHC RDW Std Deviation Plt Count MPV Immature Gran % (Auto) Neut % (Auto) Lymph % (Auto) [place] % (Auto) Eos % (Auto) Baso % (Auto) Neut # Lymph # [place] # Eos # Baso # Abs Immat Gran (auto) D-Dimer < 150 Turbidity Sodium Potassium Chloride Carbon Dioxide Anion Gap BUN Creatinine GFR Calculation BUN/Creatinine Ratio Glucose Glucometer Calculated Osmolality Calcium Total Bilirubin Icterus Index AST ALT Alkaline Phosphatase Troponin I B-Natriuretic Peptide Total Protein Albumin Globulin Albumin/Globulin Ratio TSH Specimen Hemolysis Ur Collection Type Cancelled Urine, clean catch Urine Color Cancelled Yellow Urine Clarity Cancelled Clear Urine pH Cancelled 6.0 Ur Specific [place] Cancelled <=1.005 L Urine Protein Cancelled Negative Urine Glucose (UA) Cancelled Negative Urine Ketones Cancelled Negative Urine Occult Blood Cancelled Trace-intact Urine Nitrate Cancelled Negative Urine Bilirubin Cancelled Negative Urine Urobilinogen Cancelled 0.2 Ur Leukocyte Esterase Cancelled Trace A Urine RBC Cancelled Urine WBC Cancelled Urine WBC Clumps Cancelled Ur Squamous Epith Cells Cancelled Ur Transition Epith Cell Cancelled Ur Renal Epithelial Cell Cancelled Calcium Carbonate Cryst Cancelled Calcium Phosphate Cryst Cancelled Calcium Oxalate Crystal Cancelled Cystine Crystals Cancelled Uric Acid Crystals Cancelled Triple Phos Crystals Cancelled Tyrosine Crystals Cancelled Amorphous Sediment Cancelled Urine Bacteria Cancelled Fatty Casts Cancelled Hyaline Casts Cancelled Granular Casts Cancelled Waxy Casts Cancelled RBC Casts Cancelled WBC Casts Cancelled Hemoglobin Casts Cancelled Urine Starch Cancelled Urine Mucus Cancelled Urine Trichomonas Cancelled Urine Yeast Cancelled Urine Sperm Cancelled Ur Oval Fat Bodies Cancelled Ur Culture Indicated? Cancelled Urinalysis Comment Cancelled Microscopic not ind. 02/05/17 02/06/17 02/06/17 21:30 09:58 14:50 WBC RBC Hgb Hct MCV MCH MCHC RDW Std Deviation Plt Count MPV Immature Gran % (Auto) Neut % (Auto) Lymph % (Auto) [place] % (Auto) Eos % (Auto) Baso % (Auto) Neut # Lymph # [place] # Eos # Baso # Abs Immat Gran (auto) D-Dimer Turbidity < 20 Sodium 140 Potassium 4.6 Chloride 100 Carbon Dioxide 27 Anion Gap 13 BUN 33.0 H Creatinine 1.6 H GFR Calculation 31 BUN/Creatinine Ratio 21 Glucose 250 H Glucometer 209 252 Calculated Osmolality 284 H Calcium 9.3 Total Bilirubin Icterus Index < 2 AST ALT Alkaline Phosphatase Troponin I B-Natriuretic Peptide Total Protein Albumin Globulin Albumin/Globulin Ratio TSH Specimen Hemolysis < 15 Ur Collection Type Urine Color Urine Clarity Urine pH Ur Specific [place] Urine Protein Urine Glucose (UA) Urine Ketones Urine Occult Blood Urine Nitrate Urine Bilirubin Urine Urobilinogen Ur Leukocyte Esterase Urine RBC Urine WBC Urine WBC Clumps Ur Squamous Epith Cells Ur Transition Epith Cell Ur Renal Epithelial Cell Calcium Carbonate Cryst Calcium Phosphate Cryst Calcium Oxalate Crystal Cystine Crystals Uric Acid Crystals Triple Phos Crystals Tyrosine Crystals Amorphous Sediment Urine Bacteria Fatty Casts Hyaline Casts Granular Casts Waxy Casts RBC Casts WBC Casts Hemoglobin Casts Urine Starch Urine Mucus Urine Trichomonas Urine Yeast Urine Sperm Ur Oval Fat Bodies Ur Culture Indicated? Urinalysis Comment Amiodarone HCl (Pacerone) 200 mg PO DAILY [facility] Last Admin: 02/06/17 08:25 Dose: 200 mg Sodium Chloride (Normal Saline) 1,000 mls @ 125 mls/hr IV .Q8H [facility] Last Admin: 02/06/17 14:41 Dose: 125 mls/hr Insulin Human Isoph/Insulin Regular (Novolin 70/30) 12 unit SQ HS [facility] Last Admin: 02/05/17 22:08 Dose: 12 unit Insulin Human Isoph/Insulin Regular (Novolin 70/30) 16 unit SQ AMI [facility] Last Admin: 02/06/17 08:24 Dose: 16 unit Latanoprost (Xalatan) 1 drops LEFT EYE [facility] Last Admin: 02/05/17 22:04 Dose: 1 drops Losartan Potassium (Cozaar) 50 mg PO DAILY [facility] Last Admin: 02/06/17 08:26 Dose: 50 mg Pravastatin Sodium (Pravachol) 40 mg PO [facility] Last Admin: 02/05/17 21:35 Dose: 40 mg Rivaroxaban (Xarelto) 20 mg PO [facility] Last Admin: 02/05/17 18:53 Dose: 20 mg Sodium Chloride (Iv Flush) 10 - 80 ml IVF PRN PRN PRN Reason: Flushing Last Admin: 02/05/17 22:13 Dose: 10 ml Tramadol HCl (Ultram) 50 mg PO BID PRN PRN Reason: Pain <Romy Osorio - 02/06/17 15:58> Progress Note-A&P (1) Atrial fibrillation Status: Chronic Current Visit: No (2) Diabetes Problem details: Continue home insulin regimen. PCP managing. Status: Chronic Current Visit: No (3) HTN (hypertension) Problem details: Well controlled. Status: Chronic Current Visit: No (4) Hyperlipidemia Problem details: Continue home dose Pravastatin 40mg daily. Status: Chronic Current Visit: No (5) Sinus bradycardia Status: Acute Current Visit: Yes (6) UTI (urinary tract infection) Status: Acute Current Visit: Yes (7) LISA (acute kidney injury) Status: Resolved Current Visit: Yes <Jeff Chavez - 02/07/17 13:41> (1) Atrial fibrillation Status: Chronic Assessment and plan: Currently sinus bradycardia. Taking Amiodarone 200mg po daily. Continue Xarelto. Obtain Echo Current Visit: No (2) HTN (hypertension) Problem details: Well controlled. Status: Chronic Assessment and plan: Hold Losartan as has LISA Current Visit: No (3) Hyperlipidemia Problem details: Continue home dose Pravastatin 40mg daily. Status: Chronic Assessment and plan: Continue Pravastatin Current Visit: No (4) Sinus bradycardia Status: Acute Current Visit: Yes (5) UTI (urinary tract infection) Status: Acute Assessment and plan: Continue Bactrim Current Visit: Yes (6) Diabetes Problem details: Continue home insulin regimen. PCP managing. Status: Chronic Current Visit: No (7) LISA (acute kidney injury) Status: Acute Assessment and plan: Creatinine elevated at 1.7, 1.6. Start NS at 125mL/Hr. Follow renal and Electrolytes. Hold Losartan. Current Visit: Yes <Romy Osorio - 02/06/17 16:56> - Time Spent With Patient Total time spent is greater than 50% in coordination of care (as documented) at patient's floor/unit and/or counseling patient: <Jeff Chavez 02/07/17 13:41> Total time spent is greater than 50% in coordination of care (as documented) at patient's floor/unit and/or counseling patient: <Romy Osorio 02/06/17 14:47> 25 - 35 minutes <Romy Osorio 02/06/17 15:58> - Attestation Attestation Narrative: Recommendation After examining the patient I agree with the above assessment. I am involved in the formulation of the patient's plan of care. <Jeff Chavez 02/07/17 13:41> Sepsis Assessment - Evaluation Sepsis screening result: No Definite Risk <Romy Osorio 02/06/17 14:47> Hospital Course Summary Disclaimer: The visit summary below is not to be considered part of the above Progress Note. <Jeff Chavez 02/07/17 13:41> The visit summary below is not to be considered part of the above Progress Note. <Romy Osorio 02/06/17 14:47>
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
--- NOTE | 2017-02-06 17:22 | Ultrasound Report ---
EXAM: US renal BI DATE: 02/06/2017 2:49 PM SITE OF DICTATION: Afshin. INDICATION: elevated creatinine COMPARISON: None available. TECHNIQUE: Multiple real-time grayscale sonographic images were obtained of the right and left kidneys with color flow and spectral analysis. FINDINGS: The right kidney demonstrates normal corticomedullary differentiation and measures 9.5 x 4.0 x 4.0 cm. There is no right sided mass, calculus or hydronephrosis. The left kidney demonstrates normal corticomedullary differentiation and measures 9.9 x 3.9 x 4.0 cm. There is no left sided mass, calculus or hydronephrosis. There are few bilateral simple renal cysts the largest cyst within the right kidney measuring 1.8 x 2.1 x 1.8 cm.. IMPRESSION: There are few bilateral simple renal cysts. Otherwise unremarkable renal ultrasound. .
[2017-02-06] MEDS ORDERED: RIVAROXABAN 20 MG TABLET PO SCH (17:30)
[2017-02-06] MEDS: --POM--RIVAROXABAN 20 MG TABLET PO SCH (18:03)
[2017-02-06] MEDS: LATANOPROST 0.005% EYE DROPS 2.5ml LEFT EYE SCH (22:46)
[2017-02-06] MEDS: --POM--PRAVASTATIN 40 MG TABLET PO SCH (22:46)
[2017-02-07] MEDS: NS 1,000 ML IV SCH (07:37)
[2017-02-07 07:46] VITALS: RESP 18; TEMP 97.6; O2SAT 96
[2017-02-07 07:50] VITALS: BP 119/67; PULSE 68
[2017-02-07] MEDS: INSULIN NPH/REG 70/30 INJECTION SQ SCH (08:07)
[2017-02-07] MEDS: --POM--AMIODARONE 200 MG TABLET PO SCH (08:08)
--- NOTE | 2017-02-07 08:32 | Echocardiogram ---
DATE OF PROCEDURE February 06, 2017 This is a two-dimensional echo with spectral Doppler, color-flow and M-mode. It was obtained in a patient with shortness of air. Left atrial dimension is normal. Left ventricle end-diastolic dimension is normal. Left ventricle wall thickness is normal. LV systolic function is normal with ejection fraction of 58%. Right atrium is normal. Right ventricle is normal. Aortic root dimension is normal. Mitral annulus is calcified. Mitral valve leaflets are normal with mild mitral regurgitation. Aortic valve is a trileaflet structure with fibrocalcific changes with no stenosis. Mild aortic insufficiency is present. Tricuspid valve shows moderate tricuspid regurgitation with mild pulmonary hypertension with estimated pulmonary artery systolic pressure of 38. Pulmonary valve shows mild pulmonary insufficiency. There is no pericardial effusion. IMPRESSION 1. Normal LV systolic function with ejection fraction of 58%. 2. Mitral annulus calcification with mild mitral regurgitation. 3. Aortic sclerosis with mild aortic insufficiency. 4. Moderate tricuspid regurgitation with mild pulmonary hypertension with estimated pulmonary artery systolic pressure of 38. 5. Mild pulmonary insufficiency. MTDD
--- NOTE | 2017-02-07 11:55 | Progress Note ---
<Ayleen Smith D - Last Filed: 02/07/17 11:51> Subjective: Jovita was in her recliner. She states that she feels better today, has some more energy and isn't as tired. Her BP dropped from sitting to standing - she mentioned that after thinking about this, she thinks she's had problems with orthostasis for a long time. We reviewed labs and imaging results. No SOA or chest pain. She states that lately her appetite has been reduced but she denies any abdominal pain or nausea. She has occasional constipation and intends on using MiraLAX a couple of times a week at home. Objective Vital signs: Temperature 97.6 F 02/07/17 07:00 Pulse Rate 68 02/07/17 07:49 Respiratory Rate 18 02/07/17 07:00 Blood Pressure 119/67 02/07/17 07:49 Pulse Oximetry 96 02/07/17 07:00 Oxygen Delivery Method Room Air Rhythm: Sinus Bradycardia Height/Weight/BMI: Height 1.6 m Weight 72.9 kg Body Mass Index 28.3 - Constitutional Present: no acute distress, well nourished, well developed - Routine HEENT Exam ENT: Present: mucous membranes moist, mucous membranes dry - Routine Respiratory Exam Present: rales (bilateral bases) - Routine Cardiovascular Exam Present: S1, S2 - Routine Abdominal Exam Present: soft, normoactive bowel sounds, non distended, non tender - Routine Extremities Exam Present: pulses intact, normal capillary refill - Routine Skin Exam Present: intact, dry, warm - Routine Neurological Exam Present: alert, oriented X3, CN II-XII intact - Routine Psychiatric Exam Present: normal affect, normal thought process, cooperative Results - Labs CBC & Chem 7: 02/07/17 04:19 02/07/17 04:19 Assessment and Plan (1) LISA (acute kidney injury) Current visit: Yes Status: Resolved DVT Prophylaxis: Xarelto Resuscitation Status: Full Code Assessment and Plan: Assessment LISA Generalized weakness Atrial fibrillation - on Xarelto and Amiodarone Hypertension Hyperlipidemia Diabetes mellitus 2 - insulin dependent CKD Orthostasis Chronic lower back pain - spondylolisthesis & DDD Plan Weakness improved. LISA has resolved - Cr down to 1.3. Will stop IVF d/t crackles noted on exam. May need to hold ARB in outpatient setting temporarily. Renal sono showed simple cysts but otherwise was stable. SBP dropped by 54 mmHg and DBP dropped by 10 mmHg from sitting to standing. Pt reported dizziness during that time. Dr. Davenport ordered an am cortisol level to r/o adrenal insufficiency. Will repeat orthostatics. Defer further mgt to cardiology. HR has increased to the 60s. Dr. Chavez reduced Amiodarone from BID to once daily dosing. This may also help with her weakness. She was evaluated by PT and they felt she was stable to go home without home health. Discussed with her RN and with Dr. Davenport. Sepsis Assessment - Evaluation Sepsis screening result: No Definite Risk Hospital Course Summary Disclaimer: The visit summary below is not to be considered part of the above Progress Note. <Diane Davenport - Last Filed: 02/07/17 15:37> Objective Vital signs: Temperature 97.6 F 02/07/17 07:00 Pulse Rate 68 02/07/17 07:49 Respiratory Rate 18 02/07/17 07:00 Blood Pressure 119/67 02/07/17 07:49 Pulse Oximetry 96 02/07/17 07:00 Oxygen Delivery Method Room Air Height/Weight/BMI: Height 1.6 m Weight 72.9 kg Body Mass Index 28.3 Results - Labs CBC & Chem 7: 02/07/17 04:19 02/07/17 04:19 Assessment and Plan (1) LISA (acute kidney injury) Current visit: Yes Status: Resolved Assessment and Plan: 02/07/2017-I reviewed this chart, the patient history, and the [employer]OV[employer] MARKER's/PA's documented findings as above. We discussed and formulated the assessment and plan as above with the additions below.-Dr. Davenport The patient was seen this afternoon accompanied by her daughter. Jovita states she's feeling better today. She is not lightheaded getting up and around this afternoon. She feels ready for discharge to home. I talked with Dr. Chavez earlier today and he is planning for discharge today off of amiodarone and off of losartan. She will also remain off of Maxzide for now. EM she is alert and oriented and in no acute distress. Chest is clear to auscultation. Cardiovascular reveals a regular rate and rhythm. Abdomen is soft and nontender. Extremities are free of edema. I did check a cortisol level which is pending. I have asked the lab to fax this to Dr. Sachin Carias when it is back. The patient will be discharged off of Bactrim since urine culture was negative. She was instructed to stand at the side of her chair or bed after getting up and make sure she is not lightheaded before she starts walking. I would recommend that she follow-up with Dr. Carias in the next 1 week. I did call and leave a message for Dr. Carias. Hospital Course Summary Disclaimer: The visit summary below is not to be considered part of the above Progress Note.
--- NOTE | 2017-02-07 12:57 | Cardiology Progress Note ---
Subjective Principal diagnosis: Weakness, dyspnea, near syncope <Romy Osorio - 12:57> Exam Vital signs: Temperature 97.6 F 02/07/17 07:00 Pulse Rate 68 02/07/17 07:49 Respiratory Rate 18 02/07/17 07:00 Blood Pressure 119/67 02/07/17 07:49 Pulse Oximetry 96 02/07/17 07:00 Oxygen Delivery Method Room Air <Jeff Chavez - 02/13/17 15:13> Temperature 97.6 F 02/07/17 07:00 Pulse Rate 68 02/07/17 07:49 Respiratory Rate 18 02/07/17 07:00 Blood Pressure 119/67 02/07/17 07:49 Pulse Oximetry 96 02/07/17 07:00 Oxygen Delivery Method Room Air <Romy Osorio - 02/07/17 12:57> - Routine Skin Exam Present: intact, dry, warm <Romy Osorio - 02/07/17 12:57> - Routine Neurological Exam Present: alert, oriented X3 <Romy Osorio - 02/07/17 12:57> - Routine Psychiatric Exam Present: normal affect, normal thought process <Romy Osorio - 02/07/17 12: 57> - Additional findings Additional findings: Laboratory Results - last 48 hr 02/05/17 02/05/17 02/05/17 10:17 12:50 12:50 WBC RBC Hgb Hct MCV MCH MCHC RDW Std Deviation Plt Count MPV Turbidity Sodium Potassium Chloride Carbon Dioxide Anion Gap BUN Creatinine GFR Calculation BUN/Creatinine Ratio Glucose Glucometer Calculated Osmolality Calcium Magnesium Icterus Index Creatine Kinase Prealbumin TSH 4.28 Specimen Hemolysis Ur Collection Type Cancelled Urine, clean catch Urine Color Cancelled Yellow Urine Clarity Cancelled Clear Urine pH Cancelled 6.0 Ur Specific Gates Cancelled <=1.005 L Urine Protein Cancelled Negative Urine Glucose (UA) Cancelled Negative Urine Ketones Cancelled Negative Urine Occult Blood Cancelled Trace-intact Urine Nitrate Cancelled Negative Urine Bilirubin Cancelled Negative Urine Urobilinogen Cancelled 0.2 Ur Leukocyte Esterase Cancelled Trace A Urine RBC Cancelled Urine WBC Cancelled Urine WBC Clumps Cancelled Ur Squamous Epith Cells Cancelled Ur Transition Epith Cell Cancelled Ur Renal Epithelial Cell Cancelled Calcium Carbonate Cryst Cancelled Calcium Phosphate Cryst Cancelled Calcium Oxalate Crystal Cancelled Cystine Crystals Cancelled Uric Acid Crystals Cancelled Triple Phos Crystals Cancelled Tyrosine Crystals Cancelled Amorphous Sediment Cancelled Urine Bacteria Cancelled Fatty Casts Cancelled Hyaline Casts Cancelled Granular Casts Cancelled Waxy Casts Cancelled RBC Casts Cancelled WBC Casts Cancelled Hemoglobin Casts Cancelled Urine Starch Cancelled Urine Mucus Cancelled Urine Trichomonas Cancelled Urine Yeast Cancelled Urine Sperm Cancelled Ur Oval Fat Bodies Cancelled Ur Culture Indicated? Cancelled Urinalysis Comment Cancelled Microscopic not ind. 02/05/17 02/06/17 02/06/17 21:30 09:58 14:50 WBC RBC Hgb Hct MCV MCH MCHC RDW Std Deviation Plt Count MPV Turbidity < 20 Sodium 140 Potassium 4.6 Chloride 100 Carbon Dioxide 27 Anion Gap 13 BUN 33.0 H Creatinine 1.6 H GFR Calculation 31 BUN/Creatinine Ratio 21 Glucose 250 H Glucometer 209 252 Calculated Osmolality 284 H Calcium 9.3 Magnesium Icterus Index < 2 Creatine Kinase Prealbumin TSH Specimen Hemolysis < 15 Ur Collection Type Urine Color Urine Clarity Urine pH Ur Specific Gates Urine Protein Urine Glucose (UA) Urine Ketones Urine Occult Blood Urine Nitrate Urine Bilirubin Urine Urobilinogen Ur Leukocyte Esterase Urine RBC Urine WBC Urine WBC Clumps Ur Squamous Epith Cells Ur Transition Epith Cell Ur Renal Epithelial Cell Calcium Carbonate Cryst Calcium Phosphate Cryst Calcium Oxalate Crystal Cystine Crystals Uric Acid Crystals Triple Phos Crystals Tyrosine Crystals Amorphous Sediment Urine Bacteria Fatty Casts Hyaline Casts Granular Casts Waxy Casts RBC Casts WBC Casts Hemoglobin Casts Urine Starch Urine Mucus Urine Trichomonas Urine Yeast Urine Sperm Ur Oval Fat Bodies Ur Culture Indicated? Urinalysis Comment 02/06/17 02/06/17 02/06/17 14:50 17:18 21:34 WBC RBC Hgb Hct MCV MCH MCHC RDW Std Deviation Plt Count MPV Turbidity Sodium Potassium Chloride Carbon Dioxide Anion Gap BUN Creatinine GFR Calculation BUN/Creatinine Ratio Glucose Glucometer 147 152 Calculated Osmolality Calcium Magnesium Icterus Index Creatine Kinase 25 L Prealbumin TSH Specimen Hemolysis Ur Collection Type Urine Color Urine Clarity Urine pH Ur Specific Gates Urine Protein Urine Glucose (UA) Urine Ketones Urine Occult Blood Urine Nitrate Urine Bilirubin Urine Urobilinogen Ur Leukocyte Esterase Urine RBC Urine WBC Urine WBC Clumps Ur Squamous Epith Cells Ur Transition Epith Cell Ur Renal Epithelial Cell Calcium Carbonate Cryst Calcium Phosphate Cryst Calcium Oxalate Crystal Cystine Crystals Uric Acid Crystals Triple Phos Crystals Tyrosine Crystals Amorphous Sediment Urine Bacteria Fatty Casts Hyaline Casts Granular Casts Waxy Casts RBC Casts WBC Casts Hemoglobin Casts Urine Starch Urine Mucus Urine Trichomonas Urine Yeast Urine Sperm Ur Oval Fat Bodies Ur Culture Indicated? Urinalysis Comment 02/07/17 02/07/17 02/07/17 04:19 04:19 04:19 WBC 5.8 RBC 4.64 Hgb 13.8 Hct 42.9 MCV 92.5 MCH 29.7 MCHC 32.2 RDW Std Deviation 45.4 Plt Count 189 MPV 11.8 Turbidity < 20 Sodium 144 Potassium 4.0 Chloride 110 H D Carbon Dioxide 27 Anion Gap 7 BUN 28.0 H Creatinine 1.3 H D GFR Calculation 39 BUN/Creatinine Ratio 22 Glucose 66 Glucometer Calculated Osmolality 281 H Calcium 8.9 Magnesium 2.1 Icterus Index < 2 Creatine Kinase Prealbumin 25.3 TSH Specimen Hemolysis 21 Ur Collection Type Urine Color Urine Clarity Urine pH Ur Specific Gates Urine Protein Urine Glucose (UA) Urine Ketones Urine Occult Blood Urine Nitrate Urine Bilirubin Urine Urobilinogen Ur Leukocyte Esterase Urine RBC Urine WBC Urine WBC Clumps Ur Squamous Epith Cells Ur Transition Epith Cell Ur Renal Epithelial Cell Calcium Carbonate Cryst Calcium Phosphate Cryst Calcium Oxalate Crystal Cystine Crystals Uric Acid Crystals Triple Phos Crystals Tyrosine Crystals Amorphous Sediment Urine Bacteria Fatty Casts Hyaline Casts Granular Casts Waxy Casts RBC Casts WBC Casts Hemoglobin Casts Urine Starch Urine Mucus Urine Trichomonas Urine Yeast Urine Sperm Ur Oval Fat Bodies Ur Culture Indicated? Urinalysis Comment 02/07/17 02/07/17 05:57 10:19 WBC RBC Hgb Hct MCV MCH MCHC RDW Std Deviation Plt Count MPV Turbidity Sodium Potassium Chloride Carbon Dioxide Anion Gap BUN Creatinine GFR Calculation BUN/Creatinine Ratio Glucose Glucometer 85 240 Calculated Osmolality Calcium Magnesium Icterus Index Creatine Kinase Prealbumin TSH Specimen Hemolysis Ur Collection Type Urine Color Urine Clarity Urine pH Ur Specific Gates Urine Protein Urine Glucose (UA) Urine Ketones Urine Occult Blood Urine Nitrate Urine Bilirubin Urine Urobilinogen Ur Leukocyte Esterase Urine RBC Urine WBC Urine WBC Clumps Ur Squamous Epith Cells Ur Transition Epith Cell Ur Renal Epithelial Cell Calcium Carbonate Cryst Calcium Phosphate Cryst Calcium Oxalate Crystal Cystine Crystals Uric Acid Crystals Triple Phos Crystals Tyrosine Crystals Amorphous Sediment Urine Bacteria Fatty Casts Hyaline Casts Granular Casts Waxy Casts RBC Casts WBC Casts Hemoglobin Casts Urine Starch Urine Mucus Urine Trichomonas Urine Yeast Urine Sperm Ur Oval Fat Bodies Ur Culture Indicated? Urinalysis Comment Amiodarone HCl (Pacerone) 200 mg PO DAILY [facility] Last Admin: 02/07/17 08:08 Dose: 200 mg Insulin Human Isoph/Insulin Regular (Novolin 70/30) 12 unit SQ HS [facility] Last Admin: 02/06/17 22:45 Dose: 12 unit Insulin Human Isoph/Insulin Regular (Novolin 70/30) 16 unit SQ AMI [facility] Last Admin: 02/07/17 08:07 Dose: 16 unit Latanoprost (Xalatan) 1 drops LEFT EYE HS [facility] Last Admin: 02/06/17 22:46 Dose: 1 drops Losartan Potassium (Cozaar) 50 mg PO DAILY [facility] Last Admin: 02/06/17 08:26 Dose: 50 mg Pravastatin Sodium (Pravachol) 40 mg PO HS [facility] Last Admin: 02/06/17 22:46 Dose: 40 mg Rivaroxaban (Xarelto) 20 mg PO WS [facility] Last Admin: 02/06/17 18:03 Dose: 20 mg Sodium Chloride (Iv Flush) 10 - 80 ml IVF PRN PRN PRN Reason: Flushing Last Admin: 02/05/17 22:13 Dose: 10 ml Tramadol HCl (Ultram) 50 mg PO BID PRN PRN Reason: Pain Date of Exam: 02/06/17 Type of Exam(s): US echo doppler complete DATE OF PROCEDURE February 06, 2017 This is a two-dimensional echo with spectral Doppler, color-flow and M-mode. It was obtained in a patient with shortness of air. Left atrial dimension is normal. Left ventricle end-diastolic dimension is normal. Left ventricle wall thickness is normal. LV systolic function is normal with ejection fraction of 58%. Right atrium is normal. Right ventricle is normal. Aortic root dimension is normal. Mitral annulus is calcified. Mitral valve leaflets are normal with mild mitral regurgitation. Aortic valve is a trileaflet structure with fibrocalcific changes with no stenosis. Mild aortic insufficiency is present. Tricuspid valve shows moderate tricuspid regurgitation with mild pulmonary hypertension with estimated pulmonary artery systolic pressure of 38. Pulmonary valve shows mild pulmonary insufficiency. There is no pericardial effusion. IMPRESSION 1. Normal LV systolic function with ejection fraction of 58%. 2. Mitral annulus calcification with mild mitral regurgitation. 3. Aortic sclerosis with mild aortic insufficiency. 4. Moderate tricuspid regurgitation with mild pulmonary hypertension with estimated pulmonary artery systolic pressure of 38. 5. Mild pulmonary insufficiency. <Romy Osorio 02/07/17 12:57> Progress Note-A&P (1) Atrial fibrillation Status: Chronic (2) Diabetes Problem details: Continue home insulin regimen. PCP managing. Status: Chronic (3) HTN (hypertension) Problem details: Well controlled. Status: Chronic (4) Hyperlipidemia Problem details: Continue home dose Pravastatin 40mg daily. Status: Chronic (5) Sinus bradycardia Status: Acute (6) LISA (acute kidney injury) Status: Resolved <Jeff Chavez 02/13/17 15:13> (1) Atrial fibrillation Status: Chronic Assessment and plan: Currently sinus bradycardia. Taking Amiodarone 200mg po daily. Continue Xarelto. (2) HTN (hypertension) Problem details: Well controlled. Status: Chronic Assessment and plan: Hold Losartan as has LISA (3) Hyperlipidemia Problem details: Continue home dose Pravastatin 40mg daily. Status: Chronic Assessment and plan: Continue Pravastatin (4) Sinus bradycardia Status: Acute (5) Diabetes Problem details: Continue home insulin regimen. PCP managing. Status: Chronic (6) LISA (acute kidney injury) Status: Resolved Assessment and plan: Creatinine improved, 1.3 today. Continue to monitor renal and Electrolytes. Hold Losartan. <Romy Osorio 02/08/17 11:30> - Time Spent With Patient Total time spent is greater than 50% in coordination of care (as documented) at patient's floor/unit and/or counseling patient: <Jeff Chavez 02/13/17 15:13> Total time spent is greater than 50% in coordination of care (as documented) at patient's floor/unit and/or counseling patient: <Romy Osorio 02/07/17 12:57> less than 15 minutes <Romy Osorio 02/08/17 11:30> - Attestation Attestation Narrative: Recommendation After examining the patient I agree with the above assessment. I am involved in the formulation of the patient's plan of care. <Jeff Chavez 02/13/17 15:13> Sepsis Assessment - Evaluation Sepsis screening result: No Definite Risk <Romy Osorio 02/07/17 12:57> Hospital Course Summary Disclaimer: The visit summary below is not to be considered part of the above Progress Note. <Jeff Chavez - 02/13/17 15:13> The visit summary below is not to be considered part of the above Progress Note. <Romy Osorio - 02/07/17 12:57> Addendum entered and electronically signed by Romy Osorio, [employer] 02/09/17 14: 57: Incomplete note, please see discharge summery from same date
--- NOTE | 2017-02-07 15:11 | Discharge Summary ---
<Romy Osorio - Last Filed: 02/07/17 15:32> Discharge Information Date of admission: 02/05/17 15:14 Anticipated date of discharge: 02/07/17 Attending Physician: Jeff Chavez MD Primary care physician: Sachin Carias MD Consults: 02/05/17 16:02 Dietary Consult [CONS] Routine Comment: Reason For Exam: 02/06/17 14:33 Physician Consult [CONS] Routine Consulting Provider: Diane Davenport Reason For Exam: GENERALIZED WEAKNESS Ordering Provider has Notified Clinical Cytopathologist: Yes - Discharge Diagnosis Discharge Diagnosis: Sinus Bradycardia Atrial fibrillation - Laboratory Labs: 02/07/17 04:19 02/07/17 04:19 Laboratory Results - last 48 hr 02/05/17 02/05/17 02/06/17 10:17 21:30 09:58 WBC RBC Hgb Hct MCV MCH MCHC RDW Std Deviation Plt Count MPV Turbidity Sodium Potassium Chloride Carbon Dioxide Anion Gap BUN Creatinine GFR Calculation BUN/Creatinine Ratio Glucose Glucometer 209 252 Calculated Osmolality Calcium Magnesium Icterus Index Creatine Kinase Prealbumin TSH 4.28 Specimen Hemolysis 02/06/17 02/06/17 02/06/17 14:50 14:50 17:18 WBC RBC Hgb Hct MCV MCH MCHC RDW Std Deviation Plt Count MPV Turbidity < 20 Sodium 140 Potassium 4.6 Chloride 100 Carbon Dioxide 27 Anion Gap 13 BUN 33.0 H Creatinine 1.6 H GFR Calculation 31 BUN/Creatinine Ratio 21 Glucose 250 H Glucometer 147 Calculated Osmolality 284 H Calcium 9.3 Magnesium Icterus Index < 2 Creatine Kinase 25 L Prealbumin TSH Specimen Hemolysis < 15 02/06/17 02/07/17 02/07/17 21:34 04:19 04:19 WBC 5.8 RBC 4.64 Hgb 13.8 Hct 42.9 MCV 92.5 MCH 29.7 MCHC 32.2 RDW Std Deviation 45.4 Plt Count 189 MPV 11.8 Turbidity < 20 Sodium 144 Potassium 4.0 Chloride 110 H D Carbon Dioxide 27 Anion Gap 7 BUN 28.0 H Creatinine 1.3 H D GFR Calculation 39 BUN/Creatinine Ratio 22 Glucose 66 Glucometer 152 Calculated Osmolality 281 H Calcium 8.9 Magnesium 2.1 Icterus Index < 2 Creatine Kinase Prealbumin TSH Specimen Hemolysis 21 02/07/17 02/07/17 02/07/17 04:19 05:57 10:19 WBC RBC Hgb Hct MCV MCH MCHC RDW Std Deviation Plt Count MPV Turbidity Sodium Potassium Chloride Carbon Dioxide Anion Gap BUN Creatinine GFR Calculation BUN/Creatinine Ratio Glucose Glucometer 85 240 Calculated Osmolality Calcium Magnesium Icterus Index Creatine Kinase Prealbumin 25.3 TSH Specimen Hemolysis 02/07/17 14:32 WBC RBC Hgb Hct MCV MCH MCHC RDW Std Deviation Plt Count MPV Turbidity Sodium Potassium Chloride Carbon Dioxide Anion Gap BUN Creatinine GFR Calculation BUN/Creatinine Ratio Glucose Glucometer 210 Calculated Osmolality Calcium Magnesium Icterus Index Creatine Kinase Prealbumin TSH Specimen Hemolysis - Radiology Radiology: Date of Exam: 02/06/17 Type of Exam(s): US echo doppler complete DATE OF PROCEDURE February 06, 2017 This is a two-dimensional echo with spectral Doppler, color-flow and M-mode. It was obtained in a patient with shortness of air. Left atrial dimension is normal. Left ventricle end-diastolic dimension is normal. Left ventricle wall thickness is normal. LV systolic function is normal with ejection fraction of 58%. Right atrium is normal. Right ventricle is normal. Aortic root dimension is normal. Mitral annulus is calcified. Mitral valve leaflets are normal with mild mitral regurgitation. Aortic valve is a trileaflet structure with fibrocalcific changes with no stenosis. Mild aortic insufficiency is present. Tricuspid valve shows moderate tricuspid regurgitation with mild pulmonary hypertension with estimated pulmonary artery systolic pressure of 38. Pulmonary valve shows mild pulmonary insufficiency. There is no pericardial effusion. IMPRESSION 1. Normal LV systolic function with ejection fraction of 58%. 2. Mitral annulus calcification with mild mitral regurgitation. 3. Aortic sclerosis with mild aortic insufficiency. 4. Moderate tricuspid regurgitation with mild pulmonary hypertension with estimated pulmonary artery systolic pressure of 38. 5. Mild pulmonary insufficiency. Date of Exam: 02/06/17 Ordering Provider: Ayleen Smith APRN Type of Exam(s): US renal BI Reason for Exam(s): elevated creatinine EXAM: US renal BI DATE: 02/06/2017 2:49 PM SITE OF DICTATION: Afshin. INDICATION: elevated creatinine COMPARISON: None available. TECHNIQUE: Multiple real-time grayscale sonographic images were obtained of the right and left kidneys with color flow and spectral analysis. FINDINGS: The right kidney demonstrates normal corticomedullary differentiation and measures 9.5 x 4.0 x 4.0 cm. There is no right sided mass, calculus or hydronephrosis. The left kidney demonstrates normal corticomedullary differentiation and measures 9.9 x 3.9 x 4.0 cm. There is no left sided mass, calculus or hydronephrosis. There are few bilateral simple renal cysts the largest cyst within the right kidney measuring 1.8 x 2.1 x 1.8 cm.. IMPRESSION: There are few bilateral simple renal cysts. Otherwise unremarkable renal ultrasound. History of Present Illness HPI: 86-year-old female presented with shortness of breath and weakness to the ED this afternoon. She was diagnosed with atrial fibrillation approximately 4 weeks ago and admitted by our service, she converted to SR and sent home on po Cardizem and Xarelto. She returned to ED a few days later back in atrial fibrillation. She was readmitted and started on amiodarone, she converted to SR and sent home on amio 200mg bid. She states since discharge she felt tired and short of breath, worsened over the last few days. She was seen by her PCP monday and found to have a UTI, bactrim was initiated. She admits this is a recurrent problem for her. Her PCP also dc'd her maxide. Her fatigue worsened significantly today and she was unable to ambulate safely and had near syncope every time she stood up. She denies falls. She reports abdominal pain, anorexia, nausea and dry heaves; onset after starting amiodarone. Hospital Course This is a general summary of the patient's hospital course. For more details refer to the complete medical record. Hospital course: 02/06/17 AFib:Currently sinus bradycardia. Taking Amiodarone 200mg po daily. Continue Xarelto. Obtain Echo LISA: Creatinine elevated at 1.7, 1.6. Start NS at 125mL/Hr. Follow renal and Electrolytes. Hold Losartan. Time spent with patient: less than 15 minutes DVT Prophylaxis: Xarelto Exam Vital signs: Temperature 97.6 F 02/07/17 07:00 Pulse Rate 68 02/07/17 07:49 Respiratory Rate 18 02/07/17 07:00 Blood Pressure 119/67 02/07/17 07:49 Pulse Oximetry 96 02/07/17 07:00 Oxygen Delivery Method Room Air - Constitutional no acute distress, well nourished, cooperative - Routine HEENT Exam Head: Present: normocephalic ENT: Present: mucous membranes moist - Routine Neck Exam Absent: JVD, carotid bruit - Routine Chest/Breast/Axilla Exam Chest wall: Present: tenderness - Routine Respiratory Exam Present: rales (bibasilar), diminished air movement. Absent: CTA bilaterally - Routine Cardiovascular Exam Present: RRR. Absent: JVD - Routine Abdominal Exam Present: soft, normoactive bowel sounds - Routine Extremities Exam Present: edema - Routine Skin Exam Present: intact, dry, warm - Routine Neurological Exam Present: alert, oriented X3 - Routine Psychiatric Exam Present: normal affect, normal thought process Results 02/07/17 04:19 02/07/17 04:19 CBC 02/07/17 Range/Units 04:19 WBC 5.8 (4.5-11.0) T/MM3 RBC 4.64 (4.00-5.20) M/MM3 Hgb 13.8 (12-16) GM/DL Hct 42.9 (36-46) % Plt Count 189 (130-400) T/MM3 Comprehensive Metabolic Panel 02/06/17 02/07/17 Range/Units 14:50 04:19 Sodium 140 144 (134-144) MEQ/L Potassium 4.6 4.0 (3.6-5) MEQ/L Chloride 100 110 H D (98-107) MEQ/L Carbon Dioxide 27 27 (22-30) MEQ/L BUN 33.0 H 28.0 H (7-17) MG/DL Creatinine 1.6 H 1.3 H D (0.7-1.2) MG/DL Glucose 250 H 66 (65-110) MG/DL Calcium 9.3 8.9 (8.4-10.2) MG/DL Intake and Output 02/07/17 02/07/17 02/07/17 06:59 14:59 22:59 Intake Total 100 / 100 1808.333 / 1808.333 Balance 100 / 100 1808.333 / 1808.333 Intake: IV 1558.333 / 1558.333 Normal Saline 1,000 ml @ 1558.333 / 1558.333 125 mls/hr IV .Q8H ELINA Rx #:[id number] Oral 100 / 100 250 / 250 Other: # Voids 1 1 # Bowel Movements 1 Weight 160 lb 11.472 oz Patient Weight 02/08/17 06:59 Weight 160 lb 11.472 oz - Imaging and Cardiology Echo: report reviewed EKG results: image reviewed - EKG Interpretation EKG: sinus rhythm (LBBB) Discharge Plan - Med Rec/Dispo Referrals/Follow Up: Jeff Chavez MD [Physician] - 02/21/17 3:00 pm Kelsi Instructions: Weakness (GEN) Prescriptions: Continue Insulin NPH/Reg-Don't Expunge [Humulin 70/30] 12 unit SQ HS #0 Tramadol HCl 50 mg PO BID PRN #0 tab PRN Reason: Pain Rivaroxaban [Xarelto] 20 mg PO WS tablet Pravastatin Sodium 40 mg PO HS #0 Insulin NPH/Reg-Don't Expunge [Humulin 70/30] 16 unit SQ AMI #0 Latanoprost 1 drop LEFT EYE HS #0 bottle Discontinued Amiodarone [Pacerone] 200 mg PO BID #60 tablet Sulfamethox/Tmp [Bactrim Ds] 1 tab PO BID Losartan Potassium 50 mg PO DAILY #0 tab - Disposition 01 Discharged Home, Self-Care <Jeff Chavez - Last Filed: 02/09/17 14:47> Discharge Information Date of admission: 02/05/17 15:14 Attending Physician: Jeff Chavez MD Primary care physician: Sachin Carias MD Consults: 02/05/17 16:02 Dietary Consult [CONS] Routine Comment: Reason For Exam: 02/06/17 14:33 Physician Consult [CONS] Routine Consulting Provider: Diane Davenport Reason For Exam: GENERALIZED WEAKNESS Ordering Provider has Notified Clinical Cytopathologist: Yes - Laboratory Labs: 02/07/17 04:19 02/07/17 04:19 Hospital Course This is a general summary of the patient's hospital course. For more details refer to the complete medical record. Exam Vital signs: Temperature 97.6 F 02/07/17 07:00 Pulse Rate 68 02/07/17 07:49 Respiratory Rate 18 02/07/17 07:00 Blood Pressure 119/67 02/07/17 07:49 Pulse Oximetry 96 02/07/17 07:00 Oxygen Delivery Method Room Air Results 02/07/17 04:19 02/07/17 04:19 Discharge Plan - Med Rec/Dispo - Attestation Attestation Narrative: 02/09/17 14:47 Recommendation After examining the patient I agree with the above assessment. I am involved in the formulation of the patient's plan of care.
== END 2017-02-07 16:00 | disposition home or self-care (01) ==
LOC: MED 09:55 → ED 09:55 → MED 15:50
PROVIDERS: ADMIT Internal Medicine Cardiovascular Disease; ATTEND Internal Medicine Cardiovascular Disease

== ENCOUNTER 2017-08-23 08:45 | Inpatient (IN) ==
[2017-08-23 09:23] VITALS: BMI 29.1
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
--- NOTE | 2017-08-23 10:00 | XRay Report ---
Indication: Afib PROCEDURE: XR chest 1V: Encounter: Initial Comparison: February 05, 2017 Findings: The lungs are stable in appearance without new focal airspace consolidation. There is no pleural effusion or pneumothorax. The heart size, pulmonary vascularity and mediastinal contours are unchanged. Surgical clips in the upper abdomen. IMPRESSION: Stable appearance of the chest without acute cardiopulmonary disease. .
[2017-08-23] MEDS ORDERED: METOPROLOL 5mg/5ml INJECTION IVP ONE (10:37)
[2017-08-23] MEDS ORDERED: ESMOLOL DRIP 2,500 MG/250 ML BAG IV PRN (10:39)
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
[2017-08-23] MEDS ORDERED: AMIODARONE 150 MG in NS 100 ML IV ONE (11:15)
[2017-08-23] MEDS ORDERED: AMIODARONE 450 MG in NS 250ml 250 ML IV SCH (12:00)
[2017-08-23] MEDS: 1/2 NS 1,000 ML IV SCH ×2 (12:12→21:31)
[2017-08-23] MEDS ORDERED: FentaNYL 100 MCG/2 ML INJECTION IVP ONE (15:00)
[2017-08-23] MEDS ORDERED: SALINE FLUSH 10ml SYRINGE IV ONE (15:00)
[2017-08-23] MEDS ORDERED: FLUMAZENIL 0.5mg/5ml INJECTION IVP ONE (15:00)
[2017-08-23] MEDS ORDERED: NALOXONE 0.4 MG/ML INJECTION IVP ONE (15:00)
[2017-08-23] MEDS ORDERED: MIDAZOLAM 2mg/2ml INJECTION IVP ONE (15:00)
[2017-08-23] MEDS ORDERED: FLECAINIDE 100 MG TABLET PO ONE (15:09)
[2017-08-23] MEDS: ONDANSETRON 4 MG/2 ML INJECTION IVP PRN (16:16)
[2017-08-23] MEDS ORDERED: AMIODARONE 900 MG in NS 500ml 500 ML IV SCH (18:00)
[2017-08-23] MEDS ORDERED: ACETAMINOPHEN 500 MG TABLET PO PRN (18:20)
[2017-08-23] MEDS: ACETAMINOPHEN 325 MG TABLET PO PRN ×2 (18:28→23:18)
[2017-08-23] MEDS: FLECAINIDE 50 MG TABLET PO SCH (20:48)
[2017-08-23] MEDS ORDERED: ENOXAPARIN 80 MG/0.8 ML INJECTION SQ SCH (22:13)
[2017-08-23] MEDS: HEPARIN SUB-Q 5,000units/0.5ml INJECTION SQ SCH (23:17)
[2017-08-24] MEDS ORDERED: NOREPINEPHRINE DRIP 4,000 MCG in NS 250ml 250 ML IV PRN (01:08)
[2017-08-24] MEDS ORDERED: HYDROCORTISONE SOD SUCC 100mg/2ml INJECTION IVP ONE (01:10)
[2017-08-24] MEDS ORDERED: TRAMADOL 50 MG TABLET PO PRN (01:11)
[2017-08-24] MEDS: FLECAINIDE 50 MG TABLET PO SCH ×2 (08:46→20:47)
[2017-08-24] MEDS: HEPARIN SUB-Q 5,000units/0.5ml INJECTION SQ SCH (08:47)
--- NOTE | 2017-08-24 09:26 | DC Cardioversion ---
DATE OF PROCEDURE August 23, [address] Pastor Wilcox The patient is a pleasant 87-year-old lady who was admitted with atrial fibrillation with rapid ventricular rate on chronic anticoagulation and was referred for cardioversion. Informed consent was obtained after explaining the procedure and the potential risks to the patient and family who agreed to proceed with the procedure. PROCEDURE 1. DC cardioversion. Conscious sedation was performed using Versed and fentanyl. Anterior-posterior Zoll pads were applied. 360 joules of energy was delivered in synchronized manner and patient converted from atrial fibrillation to sinus rhythm. She tolerated the procedure well with no complications. IMPRESSION 1. Successful DC cardioversion of atrial fibrillation to sinus rhythm. PLAN Will continue anticoagulation and continue antiarrhythmics to maintain sinus. MTDD
[2017-08-24] MEDS: 1/2 NS 1,000 ML IV SCH ×2 (10:12→20:56)
--- NOTE | 2017-08-24 11:03 | Cardiology Progress Note ---
<Romy Osorio M - Last Filed: 08/24/17 15:07> Subjective Principal diagnosis: A Flutter Interval history: Jovita is seen in follow up for atrial flutter. She underwent successful DCCV to SR yesterday and had persistent hypotension lasting several hours despite repeat fluid boluses. She was started on Levophed drip and responded well. States she slept well following pain medicine and feels great this morning. She denies chest pain or pressure, palpitations, dizziness or lightheadedness this morning. Exam Vital signs: Temperature 98.5 F 08/24/17 08:00 Pulse Rate 61 08/24/17 09:16 Respiratory Rate 26 H 08/24/17 09:16 Blood Pressure 120/93 H 08/24/17 09:16 Pulse Oximetry 98 08/24/17 09:16 Inpatient Medications: Generic Name Dose Route Start Last Admin Trade Name Freq PRN Reason Stop Dose Admin Acetaminophen 650 mg 08/23/17 18:27 08/23/17 23:18 Tylenol PO 650 mg Q4H PRN Administration Pain Flecainide Acetate 50 mg 08/23/17 21:00 08/24/17 08:46 Tambocor PO 50 mg BID ELINA Administration Heparin Sodium (Porcine) 5,000 units 08/23/17 22:15 08/24/17 08:47 Heparin Sq SQ 5,000 units Q12HR ELINA Administration Sodium Chloride 1,000 mls @ 100 mls/hr 08/23/17 11:30 08/24/17 10:12 1/2 Normal Saline IV 100 mls/hr .Q10H ELINA Administration Norepinephrine Bitartrate 4, 254 mls @ 38.1 mls/hr 08/24/17 01:08 08/24/17 09 :00 000 mcg/ Sodium Chloride IV 2.46 mcg/min .Q6H40M PRN 9.4 mls/hr Protocol Titration 10 MCG/MIN Insulin Aspart 1 - 5 unit 08/24/17 10:20 Novolog SQ SS PRN Hyperglycemia Protocol Ondansetron HCl 4 mg 08/23/17 09:29 08/23/17 16:16 Zofran IVP 4 mg Q6H PRN Administration Nausea Tramadol HCl 50 mg 08/24/17 01:11 08/24/17 01:56 Ultram PO 50 mg Q4H PRN Administration Pain Discontinued Medications Generic Name Dose Route Start Last Admin Trade Name Freq PRN Reason Stop Dose Admin Enoxaparin Sodium 70 mg 08/23/17 22:13 Lovenox SQ BID ELINA Flecainide Acetate 100 mg 08/23/17 15:09 08/23/17 15:58 Tambocor PO 08/23/17 15:10 100 mg O ONE Administration Hydrocortisone Sodium Succinate 100 mg 08/24/17 01:10 08/24/17 01:29 Solu-Cortef IVP 08/24/17 01:11 100 mg O ONE Administration Esmolol HCl 2,500 mg in 250 mls @ 21.66 mls/hr 08/23/17 10:39 Brevibloc Drip IV .[id number] PRN Protocol 50 MCG/KG/MIN Amiodarone HCl 450 mg/ Sodium 250 mls @ 33.33 mls/hr 08/23/17 12:00 08/23/17 12:29 Chloride IV 08/23/17 18:00 0 mg/min .Q7H31M ELINA 0 mls/hr 1 MG/MIN Infusion Amiodarone HCl 150 mg/ Sodium 103 mls @ 618 mls/hr 08/23/17 11:15 08/23/17 11 :44 Chloride IV 08/23/17 11:24 618 mls/hr O ONE Administration Amiodarone HCl 900 mg/ Sodium 500 mls @ 16.66 mls/hr 08/23/17 18:00 Chloride IV .Q24H ELINA 0.5 MG/MIN Sodium Chloride 500 mls @ 999.9 mls/hr 08/23/17 18:30 08/23/17 18:55 Normal Saline IV 08/23/17 18:31 Infused .Q30M ELINA Infusion Sodium Chloride 500 mls @ 999.9 mls/hr 08/23/17 20:45 08/23/17 21:11 Normal Saline IV 08/23/17 20:46 Infused .Q30M ELINA Infusion Sodium Chloride 500 mls @ 999.9 mls/hr 08/23/17 22:00 Normal Saline IV .Q30M ELINA Sodium Chloride 500 mls @ 250 mls/hr 08/23/17 22:45 08/24/17 00:30 Normal Saline IV 08/23/17 22:46 Infused .Q2H ELINA Infusion Metoprolol Tartrate 5 mg 08/23/17 10:37 08/23/17 11:02 Lopressor IVP 08/23/17 10:38 5 mg ONCE ONE Administration - Constitutional no acute distress, well nourished, cooperative - Routine HEENT Exam Head: Present: normocephalic ENT: Present: mucous membranes moist - Routine Neck Exam Absent: JVD, carotid bruit - Routine Chest/Breast/Axilla Exam Chest wall: Absent: tenderness - Routine Respiratory Exam Present: CTA bilaterally. Absent: rales, wheezes - Routine Cardiovascular Exam Present: RRR, murmur (I/) - Routine Abdominal Exam Present: soft, normoactive bowel sounds - Routine Extremities Exam Present: no edema - Routine Skin Exam Present: intact, dry, warm - Routine Neurological Exam Present: alert, oriented X3 - Routine Psychiatric Exam Present: normal affect, normal thought process - Additional findings Additional findings: Acetaminophen (Tylenol) 650 mg PO Q4H PRN PRN Reason: Pain Last Admin: 08/23/17 23:18 Dose: 650 mg Flecainide Acetate (Tambocor) 50 mg PO BID [facility] Last Admin: 08/24/17 08:46 Dose: 50 mg Heparin Sodium (Porcine) (Heparin Sq) 5,000 units SQ Q12HR [facility] Last Admin: 08/24/17 08:47 Dose: 5,000 units Sodium Chloride (1/2 Normal Saline) 1,000 mls @ 100 mls/hr IV .Q10H [facility] Last Infusion: 08/24/17 11:00 Dose: 100 mls/hr Norepinephrine Bitartrate 4, (000 mcg/ Sodium Chloride) 254 mls @ 38.1 mls/hr IV .Q6H40M PRN; 10 MCG/MIN PRN Reason: Protocol Last Titration: 08/24/17 11:17 Dose: 0 mcg/min, 0 mls/hr Insulin Aspart (Novolog) 1 - 5 unit SQ SS PRN; Protocol PRN Reason: Hyperglycemia Ondansetron HCl (Zofran) 4 mg IVP Q6H PRN PRN Reason: Nausea Last Admin: 08/23/17 16:16 Dose: 4 mg Tramadol HCl (Ultram) 50 mg PO Q4H PRN PRN Reason: Pain Last Admin: 08/24/17 01:56 Dose: 50 mg Results 08/24/17 04:05 08/24/17 14:38 Cardiac Enzymes 08/23/17 08/23/17 08/24/17 Range/Units 16:00 20:44 04:05 Troponin I 0.126 H 0.165 H 0.292 H D (0-0.12) ng/ml CBC 08/23/17 08/24/17 Range/Units 20:33 04:05 WBC 9.3 16.6 H D (4.5-11.0) T/MM3 RBC 4.31 4.59 (4.00-5.20) M/MM3 Hgb 12.6 13.7 (12-16) GM/DL Hct 39.6 43.2 (36-46) % Plt Count 265 298 (130-400) T/MM3 Neut # (Auto) 7.0 Not performed (1.8-7.7) T/MM3 Lymph # (Auto) 1.7 Not performed (1-4.8) T/MM3 Heard # (Auto) 0.6 Not performed (0-0.8) T/MM3 Eos # (Auto) 0.0 Not performed (0-0.5) T/MM3 Baso # (Auto) 0.0 Not performed (0-0.2) T/MM3 Comprehensive Metabolic Panel 08/23/17 08/24/17 Range/Units 20:44 04:05 Sodium 144 142 (134-144) MEQ/L Potassium 4.6 5.9 H D (3.6-5) MEQ/L Chloride 115 H 111 H (98-107) MEQ/L Carbon Dioxide 15 L D 16 L (22-30) MEQ/L BUN 29.0 H 34.0 H (7-17) MG/DL Creatinine 1.4 H D 1.9 H D (0.7-1.2) mg/dL Glucose 131 H 125 H (65-110) MG/DL Calcium 7.8 L D 8.1 L (8.4-10.2) MG/DL Intake and Output 08/23/17 08/24/17 08/24/17 22:59 06:59 14:59 Intake Total 2104.732 / 2104.732 1378.346 / 1378.346 354.867 / 354.867 Output Total 50 / 50 25 / 25 10 / 10 Balance 2054.732 / 4.732 1353.346 / 1353.346 344.867 / 344.867 Intake: IV 2104.732 / 2104.732 1138.346 / 1138.346 354.867 / 354.867 1/2 Ns 1,000 ml @ 100 mls/hr IV 1104.832 / 1104.832 550 / 550 326.667 / 326.667 .Q10H ELINA Rx#:[id number] NS 500ml 500 ml @ 250 mls/hr IV 999.90 / 999.90 500.0 / 500.0 .Q2H ELINA Rx#:[id number] Norepinephrine Drip 4,000 mcg 88.346 / 88.346 28.2 / 28.2 In NS 250ml 250 ml @ 10 MCG/MIN 38.1 mls/hr IV .Q6H40M PRN Rx# :[id number] Oral 240 / 240 Output: Urine 50 / 50 25 / 25 Urine Amount (Catheter) Other: Urine Appearance Clear Clear Urine Color Dark Jocelyne Dark Yellow Stool Color Brown Stool Consistency Formed Size of Bowel Movement Small Weight 168 lb 10.458 oz Patient Weight 08/25/17 06:59 Weight 168 lb 10.458 oz - Imaging and Cardiology Imaging & Cardiology Narrative: DATE OF PROCEDURE August 23, [address] Pastor Wilcox The patient is a pleasant 87-year-old lady who was admitted with atrial fibrillation with rapid ventricular rate on chronic anticoagulation and was referred for cardioversion. Informed consent was obtained after explaining the procedure and the potential risks to the patient and family who agreed to proceed with the procedure. PROCEDURE 1. DC cardioversion. Conscious sedation was performed using Versed and fentanyl. Anterior-posterior Zoll pads were applied. 360 joules of energy was delivered in synchronized manner and patient converted from atrial fibrillation to sinus rhythm. She tolerated the procedure well with no complications. IMPRESSION 1. Successful DC cardioversion of atrial fibrillation to sinus rhythm. PLAN Will continue anticoagulation and continue antiarrhythmics to maintain sinus. 08/24/17 11:18 - EKG Interpretation EKG: sinus rhythm EKG shows: bradycardia (LBBB) Assessment and Plan - Assessment and Plan (1) Non-ST elevation myocardial infarction (NSTEMI), type 2 Status: Acute Elevated troponin, likely due to low cardiac output, hypotension and demand ischemia with RVR. - 1) 0.112, 2) 0.126, 3) 0.165, 4) 0.292, 5)0.438, 6) 0.392 trending down (2) Atrial flutter Status: Acute (3) Atherosclerotic heart disease of [place] coronary artery without angina pectoris Status: Acute (4) Type 2 diabetes mellitus without complications Status: Acute (5) HTN (hypertension) Problem details: Well controlled. Status: Chronic (6) Hyperlipidemia Problem details: Continue home dose Pravastatin 40mg daily. Status: Chronic - Assessment and Plan 08/23/17 A Flutter: Chronic, unknown onset, asymptomatic - Metoprolol 5mg IVP X1 - Esmolol drip fro rate control - Anticoagulated on Eliquis - Amiodarone bolus and drip - Check TSH and Mag Patient did not tolerate Amiodarone. Amiodarone stopped - sedation provided and DCCV successful to SR - Start Flecainide 100mg now and 50mg BID Thank you for allowing us to participate in the care of this patient. 08/24/17 BP stable, remains on Levophed, wean off - HR bradycardia but SR, LBBB. Denies symptoms - Continue Flecainide for AAT. - Elevated troponin, likely due to low cardiac output, hypotension and demand ischemia with RVR. - 1) 0.112, 2) 0.126, 3) 0.165, 4) 0.292, 5)0.438, 6) 0.392 trending down - Scr 1.9 today, repeat K+ 5.1 Hospital Course Summary Disclaimer: The visit summary below is not to be considered part of the above Progress Note. Hospital Course: Impression Atrial fibrillation with rapid ventricular rate Weakness and fatigue Hyperlipidemia CKD- Stage 3 Systolic heart failure Hypertension Diabetes- Type 2 Coronary artery disease Spondylolisthesis/Scoliosis Plan Admit to CCU to observation status under the care of Dr Wilcox Placed to Dr. Chavez for further cardiac evaluation recommendations. Will need further rate control with RVR Obtain CBC, CMP, magnesium, troponin, urinalysis and twelve-lead EKG on admission. 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 Given history of type II diabetes Place patient nothing by mouth at this time until further cardiac evaluation and plan has been warmed. Zofran available as needed for nausea NS at 100 ML/hr for gently dehydration Will evaluate home medications once they are reconciled SCDs to bilateral lower extremity for DVT prophylaxis She does wish to be a full code and this orders written. Will discuss further orders and plan of care with attending, Dr. Wilcox At time of discharge medical care will return to primary care provider, Dr Carias <Jeff Chavez - Last Filed: 08/30/17 07:39> Exam Vital signs: Temperature 98.5 F 08/28/17 11:00 Pulse Rate 65 08/28/17 11:00 Respiratory Rate 16 08/28/17 11:00 Blood Pressure 149/78 H 08/28/17 11:00 Pulse Oximetry 94 08/28/17 11:00 Inpatient Medications: Discontinued Medications Generic Name Dose Route Start Last Admin Trade Name Freq PRN Reason Stop Dose Admin Acetaminophen 650 mg 08/23/17 18:27 08/26/17 08:50 Tylenol PO 650 mg Q4H PRN Administration Pain Apixaban 2.5 mg 08/24/17 11:25 08/24/17 20:47 Eliquis PO 2.5 mg BID ELINA Administration Apixaban 2.5 mg 08/25/17 09:00 08/28/17 09:02 Eliquis PO 2.5 mg BID ELINA Administration Benzonatate 200 mg 08/25/17 15:11 08/28/17 16:03 Tessalon Perles PO 200 mg TID PRN Administration cough Bumetanide 1 mg 08/25/17 16:01 08/25/17 16:26 Bumex 1 Mg/4 Ml Inj. IVP 08/25/17 16:02 1 mg O ONE Administration Bumetanide 1 mg 08/26/17 09:20 08/28/17 14:44 Bumex 1 Mg Tab PO 1 mg [id number] ELINA Administration Enoxaparin Sodium 70 mg 08/23/17 22:13 Lovenox SQ BID ELINA Flecainide Acetate 50 mg 08/23/17 21:00 08/28/17 09:03 Tambocor PO 50 mg BID ELINA Administration Flecainide Acetate 100 mg 08/23/17 15:09 08/23/17 15:58 Tambocor PO 08/23/17 15:10 100 mg O ONE Administration Guaifenesin 1,200 mg 08/27/17 21:00 08/28/17 09:03 Mucinex La PO 1,200 mg BID ELINA Administration Guaifenesin/Codeine Phosphate 2.5 - 5 ml 08/27/17 12:40 08/27/17 13:30 Robitussin Ac PO 5 ml Q4H PRN Administration Cough /Congestion Heparin Sodium (Porcine) 5,000 units 08/23/17 22:15 08/24/17 08:47 Heparin Sq SQ 5,000 units Q12HR ELINA Administration Hydrocortisone Sodium Succinate 100 mg 08/24/17 01:10 08/24/17 01:29 Solu-Cortef IVP 08/24/17 01:11 100 mg O ONE Administration Esmolol HCl 2,500 mg in 250 mls @ 21.66 mls/hr 08/23/17 10:39 Brevibloc Drip IV .[id number] PRN Protocol 50 MCG/KG/MIN Amiodarone HCl 450 mg/ Sodium 250 mls @ 33.33 mls/hr 08/23/17 12:00 08/23/17 12:29 Chloride IV 08/23/17 18:00 0 mg/min .Q7H31M ELINA 0 mls/hr 1 MG/MIN Infusion Amiodarone HCl 150 mg/ Sodium 103 mls @ 618 mls/hr 08/23/17 11:15 08/23/17 11 :44 Chloride IV 08/23/17 11:24 618 mls/hr O ONE Administration Amiodarone HCl 900 mg/ Sodium 500 mls @ 16.66 mls/hr 08/23/17 18:00 Chloride IV .Q24H ELINA 0.5 MG/MIN Sodium Chloride 1,000 mls @ 100 mls/hr 08/23/17 11:30 08/25/17 09:54 1/2 Normal Saline IV Infused .Q10H ELINA Infusion Sodium Chloride 500 mls @ 999.9 mls/hr 08/23/17 18:30 08/23/17 18:55 Normal Saline IV 08/23/17 18:31 Infused .Q30M ELIAN Infusion Sodium Chloride 500 mls @ 999.9 mls/hr 08/23/17 20:45 08/23/17 21:11 Normal Saline IV 08/23/17 20:46 Infused .Q30M ELINA Infusion Sodium Chloride 500 mls @ 999.9 mls/hr 08/23/17 22:00 Normal Saline IV .Q30M ELINA Sodium Chloride 500 mls @ 250 mls/hr 08/23/17 22:45 08/24/17 00:30 Normal Saline IV 08/23/17 22:46 Infused .Q2H ELINA Infusion Norepinephrine Bitartrate 4, 254 mls @ 38.1 mls/hr 08/24/17 01:08 08/26/17 14 :18 000 mcg/ Sodium Chloride IV Infused .Q6H40M PRN Titration Protocol 10 MCG/MIN Sodium Chloride 1,000 mls @ 150 mls/hr 08/25/17 09:45 08/26/17 14:18 Normal Saline IV Not Given .Q6H40M ELINA Sodium Bicarbonate 50 meq/ 1,050 mls @ 75 mls/hr 08/25/17 17:00 08/27/17 10: 30 Sodium Chloride IV Infused .Q14H ELINA Infusion Insulin Aspart 1 - 5 unit 08/24/17 10:20 08/28/17 14:44 Novolog SQ 2 unit SS PRN Administration Hyperglycemia Protocol Insulin Human Isoph/Insulin Regular 12 unit 08/25/17 07:30 08/28/17 09:04 Novolin 70/30 SQ 12 unit [id number] ELINA Administration Insulin Human Isoph/Insulin Regular 10 unit 08/24/17 17:00 08/27/17 18:09 Novolin 70/30 SQ 10 unit ACS ELINA Administration Menthol 1 lozenge 08/27/17 09:59 08/27/17 15:00 Ricola Sf MM 1 lozenge PRN PRN Administration Cough Metoclopramide HCl 5 mg 08/25/17 17:13 Reglan IVP Q6H PRN Metoprolol Tartrate 5 mg 08/23/17 10:37 08/23/17 11:02 Lopressor IVP 08/23/17 10:38 5 mg ONCE ONE Administration Ondansetron HCl 4 mg 08/23/17 09:29 08/25/17 10:04 Zofran IVP 4 mg Q6H PRN Administration Nausea Ondansetron HCl 4 mg 08/25/17 09:38 08/26/17 06:12 Zofran IVP 4 mg Q6H PRN Administration Nausea &/or vomiting Potassium Chloride 40 meq 08/27/17 08:49 08/27/17 09:09 K-Dur 20 Meq Tablet PO 08/27/17 08:50 40 meq O ONE Administration Potassium Chloride 20 meq 08/27/17 17:30 08/28/17 09:02 K-Dur 20 Meq Tablet PO 20 meq BIDWM ELINA Administration Potassium Chloride 20 meq 08/28/17 12:00 08/28/17 12:44 K-Dur 20 Meq Tablet PO 20 meq TIDWM ELINA Administration Ticagrelor 90 mg 08/24/17 11:24 08/28/17 09:03 Brilinta PO 90 mg BID ELINA Administration Tramadol HCl 50 mg 08/24/17 01:11 08/24/17 01:56 Ultram PO 50 mg Q4H PRN Administration Pain Results 08/26/17 04:45 08/28/17 04:32 Assessment and Plan - Assessment and Plan (1) Atrial flutter Status: Acute (2) HTN (hypertension) Problem details: Well controlled. Status: Chronic (3) Hyperlipidemia Problem details: Continue home dose Pravastatin 40mg daily. Status: Chronic (4) Atherosclerotic heart disease of [place] coronary artery without angina pectoris Status: Acute (5) Type 2 diabetes mellitus without complications Status: Acute (6) Non-ST elevation myocardial infarction (NSTEMI), type 2 Status: Acute - Attestation Attestation Narrative: 08/30/17 07:38 Recommendation After examining the patient I agree with the above assessment. I am involved in the formulation of the patient's plan of care. Hospital Course Summary Disclaimer: The visit summary below is not to be considered part of the above Progress Note.
[2017-08-24] MEDS: TICAGRELOR 90 MG TABLET PO SCH ×2 (12:02→20:48)
[2017-08-24] MEDS: APIXABAN 5 MG TABLET PO SCH ×2 (12:02→20:47)
--- NOTE | 2017-08-24 15:27 | Progress Note ---
- Date 08/24/17 Subjective: Mrs. Davenport was resting comfortably when seen this morning. She denied dyspnea, chest pain, palpitations, nausea, lightheadedness, or weakness. Her appetite was good. Blood pressure was marginal overnight requiring fluid boluses and subsequent initiation of Levophed. Ultimately steroids were initiated due to history of adrenalectomy. 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 She has not required chronic steroid therapy and has had no recent steroid therapy. Objective Vital signs: Temperature 97.4 F 08/24/17 12:00 Pulse Rate 56 L 08/24/17 12:45 Respiratory Rate 22 08/24/17 12:45 Blood Pressure 128/70 08/24/17 12:45 Pulse Oximetry 99 - 1 L 08/24/17 12:45 I/O 3499/125 Weight up 4.3 kg from admission NAD, alert Conjunctiva clear, sclerae anicteric, conjugate gaze Respirations nonlabored, good airflow, breath sounds clear anteriorly/ posteriorly Regular rhythm, [id number] with sinus rhythm at bedside Abdomen soft, nontender, bowel sounds present Edema present at the ankles MAEW Height/Weight/BMI: Height 1.57 m Weight 76.5 kg Body Mass Index 29.1 Results - Labs CBC & Chem 7: 08/24/17 04:05 08/24/17 14:38 Labs: Potassium 5.9 this morning, bicarbonate 16 (normal prior to yesterday evening); creatinine 1.9 Troponin 0.292-0.438-0.392 - ABG Interpretation ABG results: 08/23/17 23:13 ABG pH 7.387 ABG pCO2 20 L* ABG pO2 96.1 ABG HCO3 12.1 L ABG Total CO2 12.7 L ABG O2 Saturation 97.6 ABG Base Excess -10.6 L - Imaging and Cardiology Chest x-ray Status: image reviewed by me ([email or web address]) Assessment and Plan (1) Atrial fibrillation with RVR Current visit: Yes Status: Acute Assessment and Plan: Impression Atrial fibrillation with rapid ventricular rate Hypotension post cardioversion Metabolic acidosis/Lactic acidosis Hyperkalemia Elevated troponin-probable type II [place] CAD Weakness and fatigue Hyperlipidemia LISA on CKD- Stage 3 Systolic heart failure Hypertension-chronic Diabetes- Type 2 Coronary artery disease Spondylolisthesis/Scoliosis Plan Converted to sinus rhythm yesterday with cardioversion; rhythm has remains stable. Eliquis/brilinta resume today per cardiology. Flecainide started yesterday evening. Persistent hypotension after 2 L normal saline yesterday evening led to low dose Levophed overnight-weaned off this morning. Systolic blood pressures in the 60s at time yesterday evening. The patient additionally received a single dose of IV hydrocortisone for possible adrenal insufficiency; cortisol level pending. Will not continue IV steroids as blood pressure stable today. Creatinine up today, persistent metabolic acidosis-reassess electrolytes/ creatinine this afternoon. Suspect lactic acidosis due to hypotension associated with tachyarrhythmia. Insulin resumed per home regimen-dose is decreased slightly to account for hospital diet. Discussed with nursing and cardiology. DVT Prophylaxis: Clark Resuscitation Status: Full Code - Physician Narrative Narrative: Date: 08/24/17 Time: 1523 Hospital Course Summary Disclaimer: The visit summary below is not to be considered part of the above Progress Note. Hospital Course: Impression Atrial fibrillation with rapid ventricular rate Weakness and fatigue Hyperlipidemia CKD- Stage 3 Systolic heart failure Hypertension Diabetes- Type 2 Coronary artery disease Spondylolisthesis/Scoliosis 08/23/17-admission Admit to CCU to observation status under the care of Dr Wilcox Placed to Dr. Chavez for further cardiac evaluation recommendations. Will need further rate control with RVR Obtain CBC, CMP, magnesium, troponin, urinalysis and twelve-lead EKG on admission. 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 Given history of type II diabetes Place patient nothing by mouth at this time until further cardiac evaluation and plan has been warmed. Zofran available as needed for nausea NS at 100 ML/hr for gently dehydration Will evaluate home medications once they are reconciled SCDs to bilateral lower extremity for DVT prophylaxis She does wish to be a full code and this orders written. Will discuss further orders and plan of care with attending, Dr. Wilcox At time of discharge medical care will return to primary care provider, Dr Carias 08/24/17 Converted to sinus rhythm yesterday with cardioversion; rhythm has remains stable. Eliquis/brilinta resume today per cardiology. Flecainide started yesterday evening. Persistent hypotension after 2 L normal saline yesterday evening led to low dose Levophed overnight-weaned off this morning. Systolic blood pressures in the 60s at time yesterday evening. The patient additionally received a single dose of IV hydrocortisone for possible adrenal insufficiency; cortisol level pending. Will not continue IV steroids as blood pressure stable today. Creatinine up today, persistent metabolic acidosis-reassess electrolytes/ creatinine this afternoon. Suspect lactic acidosis due to hypotension associated with tachyarrhythmia. Insulin resumed per home regimen-dose is decreased slightly to account for hospital diet.
[2017-08-24] MEDS: INSULIN NPH/REG 70/30 INJECTION SQ SCH (17:06)
[2017-08-25] MEDS: 1/2 NS 1,000 ML IV SCH (08:40)
[2017-08-25] MEDS: TICAGRELOR 90 MG TABLET PO SCH ×2 (08:58→20:21)
[2017-08-25] MEDS: APIXABAN 2.5 MG TABLET PO SCH ×2 (09:04→20:21)
[2017-08-25] MEDS: NS 1,000 ML IV SCH (09:54)
[2017-08-25] MEDS: INSULIN NPH/REG 70/30 INJECTION SQ SCH ×2 (09:57→19:57)
[2017-08-25] MEDS: ONDANSETRON 4 MG/2 ML INJECTION IVP PRN ×2 (10:04→18:03)
--- NOTE | 2017-08-25 10:59 | Cardiology Progress Note ---
<Romy Osorio M - Last Filed: 08/25/17 16:37> Subjective Principal diagnosis: A Flutter Interval history: Jovita is seen in follow up for atrial flutter. She remains in SR but feels "lousy". She vomited this morning and she does not want to take Flecainide at this time. She denies chest pain or pressure, or palpitations. Exam Vital signs: Temperature 97.0 F 08/25/17 08:00 Pulse Rate 60 08/25/17 09:00 Respiratory Rate 19 08/25/17 09:00 Blood Pressure 124/71 08/25/17 09:00 Pulse Oximetry 100 08/25/17 09:00 Inpatient Medications: Generic Name Dose Route Start Last Admin Trade Name Freq PRN Reason Stop Dose Admin Acetaminophen 650 mg 08/23/17 18:27 08/23/17 23:18 Tylenol PO 650 mg Q4H PRN Administration Pain Apixaban 2.5 mg 08/25/17 09:00 08/25/17 09:04 Eliquis PO 2.5 mg BID ELINA Administration Flecainide Acetate 50 mg 08/23/17 21:00 08/24/17 20:47 Tambocor PO 50 mg BID ELINA Administration Norepinephrine Bitartrate 4, 254 mls @ 38.1 mls/hr 08/24/17 01:08 08/24/17 11 :17 000 mcg/ Sodium Chloride IV 0 mcg/min .Q6H40M PRN 0 mls/hr Protocol Titration 10 MCG/MIN Sodium Chloride 1,000 mls @ 150 mls/hr 08/25/17 09:45 08/25/17 09:54 Normal Saline IV 150 mls/hr .Q6H40M LEINA Administration Insulin Aspart 1 - 5 unit 08/24/17 10:20 Novolog SQ SS PRN Hyperglycemia Protocol Insulin Human Isoph/Insulin Regular 12 unit 08/25/17 07:30 08/25/17 09:57 Novolin 70/30 SQ Not Given [id number] ELINA Insulin Human Isoph/Insulin Regular 10 unit 08/24/17 17:00 08/24/17 17:06 Novolin 70/30 SQ 10 unit ACS ELINA Administration Ondansetron HCl 4 mg 08/23/17 09:29 08/25/17 10:04 Zofran IVP 4 mg Q6H PRN Administration Nausea Ondansetron HCl 4 mg 08/25/17 09:38 Zofran IVP Q6H PRN Nausea &/or vomiting Ticagrelor 90 mg 08/24/17 11:24 08/25/17 08:58 Brilinta PO 90 mg BID ELINA Administration Tramadol HCl 50 mg 08/24/17 01:11 08/24/17 01:56 Ultram PO 50 mg Q4H PRN Administration Pain Discontinued Medications Generic Name Dose Route Start Last Admin Trade Name Freq PRN Reason Stop Dose Admin Apixaban 2.5 mg 08/24/17 11:25 08/24/17 20:47 Eliquis PO 2.5 mg BID ELINA Administration Enoxaparin Sodium 70 mg 08/23/17 22:13 Lovenox SQ BID ELINA Flecainide Acetate 100 mg 08/23/17 15:09 08/23/17 15:58 Tambocor PO 08/23/17 15:10 100 mg O ONE Administration Heparin Sodium (Porcine) 5,000 units 08/23/17 22:15 08/24/17 08:47 Heparin Sq SQ 5,000 units Q12HR ELINA Administration Hydrocortisone Sodium Succinate 100 mg 08/24/17 01:10 08/24/17 01:29 Solu-Cortef IVP 08/24/17 01:11 100 mg O ONE Administration Esmolol HCl 2,500 mg in 250 mls @ 21.66 mls/hr 08/23/17 10:39 Brevibloc Drip IV .[id number] PRN Protocol 50 MCG/KG/MIN Amiodarone HCl 450 mg/ Sodium 250 mls @ 33.33 mls/hr 08/23/17 12:00 08/23/17 12:29 Chloride IV 08/23/17 18:00 0 mg/min .Q7H31M ELINA 0 mls/hr 1 MG/MIN Infusion Amiodarone HCl 150 mg/ Sodium 103 mls @ 618 mls/hr 08/23/17 11:15 08/23/17 11 :44 Chloride IV 08/23/17 11:24 618 mls/hr O ONE Administration Amiodarone HCl 900 mg/ Sodium 500 mls @ 16.66 mls/hr 08/23/17 18:00 Chloride IV .Q24H ELINA 0.5 MG/MIN Sodium Chloride 1,000 mls @ 100 mls/hr 08/23/17 11:30 08/25/17 08:40 1/2 Normal Saline IV 100 mls/hr .Q10H ELINA Administration Sodium Chloride 500 mls @ 999.9 mls/hr 08/23/17 18:30 08/23/17 18:55 Normal Saline IV 08/23/17 18:31 Infused .Q30M ELINA Infusion Sodium Chloride 500 mls @ 999.9 mls/hr 08/23/17 20:45 08/23/17 21:11 Normal Saline IV 08/23/17 20:46 Infused .Q30M ELINA Infusion Sodium Chloride 500 mls @ 999.9 mls/hr 08/23/17 22:00 Normal Saline IV .Q30M ELINA Sodium Chloride 500 mls @ 250 mls/hr 08/23/17 22:45 08/24/17 00:30 Normal Saline IV 08/23/17 22:46 Infused .Q2H ELINA Infusion Metoprolol Tartrate 5 mg 08/23/17 10:37 08/23/17 11:02 Lopressor IVP 08/23/17 10:38 5 mg ONCE ONE Administration - Constitutional no acute distress, well nourished, cooperative - Routine HEENT Exam Head: Present: normocephalic ENT: Present: mucous membranes moist - Routine Neck Exam Absent: JVD, carotid bruit - Routine Chest/Breast/Axilla Exam Chest wall: Absent: tenderness - Routine Respiratory Exam Present: CTA bilaterally. Absent: rales, wheezes - Routine Cardiovascular Exam Present: RRR, murmur (I/Vi) - Routine Abdominal Exam Present: soft, normoactive bowel sounds - Routine Extremities Exam Present: edema - Routine Skin Exam Present: intact, dry, warm - Routine Neurological Exam Present: alert, oriented X3 - Routine Psychiatric Exam Present: normal affect, normal thought process - Additional findings Additional findings: Acetaminophen (Tylenol) 650 mg PO Q4H PRN PRN Reason: Pain Last Admin: 08/23/17 23:18 Dose: 650 mg Apixaban (Eliquis) 2.5 mg PO BID [facility] Last Admin: 08/25/17 09:04 Dose: 2.5 mg Flecainide Acetate (Tambocor) 50 mg PO BID [facility] Last Admin: 08/24/17 20:47 Dose: 50 mg Norepinephrine Bitartrate 4, (000 mcg/ Sodium Chloride) 254 mls @ 38.1 mls/hr IV .Q6H40M PRN; 10 MCG/MIN PRN Reason: Protocol Last Titration: 08/24/17 11:17 Dose: 0 mcg/min, 0 mls/hr Sodium Chloride (Normal Saline) 1,000 mls @ 150 mls/hr IV .Q6H40M [facility] Last Admin: 08/25/17 09:54 Dose: 150 mls/hr Insulin Aspart (Novolog) 1 - 5 unit SQ SS PRN; Protocol PRN Reason: Hyperglycemia Insulin Human Isoph/Insulin Regular (Novolin 70/30) 12 unit SQ [id number] [facility] Last Admin: 08/25/17 09:57 Dose: Not Given Insulin Human Isoph/Insulin Regular (Novolin 70/30) 10 unit SQ ACS [facility] Last Admin: 08/24/17 17:06 Dose: 10 unit Ondansetron HCl (Zofran) 4 mg IVP Q6H PRN PRN Reason: Nausea Last Admin: 08/25/17 10:04 Dose: 4 mg Ondansetron HCl (Zofran) 4 mg IVP Q6H PRN PRN Reason: Nausea &/or vomiting Ticagrelor (Brilinta) 90 mg PO BID [facility] Last Admin: 08/25/17 08:58 Dose: 90 mg Tramadol HCl (Ultram) 50 mg PO Q4H PRN PRN Reason: Pain Last Admin: 08/24/17 01:56 Dose: 50 mg Results 08/25/17 05:18 08/25/17 16:05 Cardiac Enzymes 08/24/17 08/24/17 08/24/17 Range/Units 11:11 14:38 22:14 Troponin I 0.438 H 0.392 H 0.311 H (0-0.12) ng/ml CBC 08/25/17 Range/Units 05:18 WBC 11.7 H (4.5-11.0) T/MM3 RBC 4.27 (4.00-5.20) M/MM3 Hgb 12.6 (12-16) GM/DL Hct 39.2 (36-46) % Plt Count 290 (130-400) T/MM3 Neut # (Auto) Not performed Lymph # (Auto) Not performed Dickson # (Auto) Not performed Eos # (Auto) Not performed Baso # (Auto) Not performed Comprehensive Metabolic Panel 08/24/17 08/24/17 08/25/17 Range/Units 14:38 14:38 05:18 Sodium 141 138 (134-144) MEQ/L Potassium 5.1 H 5.1 H 4.5 (3.6-5) MEQ/L Chloride 109 H 105 (98-107) MEQ/L Carbon Dioxide 15 L 16 L (22-30) MEQ/L BUN 45.0 H 55.0 H* (7-17) MG/DL Creatinine 2.1 H D 2.3 H D (0.7-1.2) mg/dL Glucose 191 H 126 H (65-110) MG/DL Calcium 7.9 L 7.7 L (8.4-10.2) MG/DL Albumin 3.3 L (3.5-5.0) g/dL Intake and Output 08/24/17 08/25/17 08/25/17 22:59 06:59 14:59 Intake Total 1226.667 / 1226.667 100 / 100 793.333 / 793.333 Output Total 100 / 100 125 / 125 Balance 1126.667 / 1126.667 -25 / -25 793.333 / 793.333 Intake: IV 1026.667 / 1026.667 100 / 100 793.333 / 793.333 1/2 Ns 1,000 ml @ 100 mls/hr IV 1026.667 / 1026.667 100 / 100 793.333 / 793.333 .Q10H ELINA Rx#:[id number] Oral 200 / 200 Output: Urine 100 / 100 125 / 125 Other: Urine Appearance Clear Urine Color Dark Yellow Yellow Urine Odor Strong Stool Color Brown Stool Consistency Formed Size of Bowel Movement Small Weight 162 lb 11.218 oz Patient Weight 08/26/17 06:59 Weight 162 lb 11.218 oz - Imaging and Cardiology Imaging & Cardiology Narrative: DATE OF PROCEDURE August 23, [address] Pastor iWlcox The patient is a pleasant 87-year-old lady who was admitted with atrial fibrillation with rapid ventricular rate on chronic anticoagulation and was referred for cardioversion. Informed consent was obtained after explaining the procedure and the potential risks to the patient and family who agreed to proceed with the procedure. PROCEDURE 1. DC cardioversion. Conscious sedation was performed using Versed and fentanyl. Anterior-posterior Zoll pads were applied. 360 joules of energy was delivered in synchronized manner and patient converted from atrial fibrillation to sinus rhythm. She tolerated the procedure well with no complications. IMPRESSION 1. Successful DC cardioversion of atrial fibrillation to sinus rhythm. PLAN Will continue anticoagulation and continue antiarrhythmics to maintain sinus. 08/25/17 16:37 Assessment and Plan - Assessment and Plan (1) Non-ST elevation myocardial infarction (NSTEMI), type 2 Status: Acute (2) Atrial flutter Status: Acute (3) Atherosclerotic heart disease of [place] coronary artery without angina pectoris Status: Acute (4) Type 2 diabetes mellitus without complications Status: Acute (5) HTN (hypertension) Problem details: Well controlled. Status: Chronic (6) Hyperlipidemia Problem details: Continue home dose Pravastatin 40mg daily. Status: Chronic - Assessment and Plan 08/23/17 A Flutter: Chronic, unknown onset, asymptomatic - Metoprolol 5mg IVP X1 - Esmolol drip fro rate control - Anticoagulated on Eliquis - Amiodarone bolus and drip - Check TSH and Mag Patient did not tolerate Amiodarone. Amiodarone stopped - sedation provided and DCCV successful to SR - Start Flecainide 100mg now and 50mg BID Thank you for allowing us to participate in the care of this patient. 08/24/17 BP stable, remains on Levophed, wean off - HR bradycardia but SR, LBBB. Denies symptoms - Continue Flecainide for AAT. - Elevated troponin, likely due to low cardiac output, hypotension and demand ischemia with RVR. - 1) 0.112, 2) 0.126, 3) 0.165, 4) 0.292, 5)0.438, 6) 0.392 trending down - Scr 1.9 today, repeat K+ 5.1 08/25/17 - Coughs until vomiting, not likely caused by AAT - Continue Flecainide for AAT - EKG in AM - Amylase and Lipase - Continue to monitor telemetry Hospital Course Summary Disclaimer: The visit summary below is not to be considered part of the above Progress Note. Hospital Course: Impression Atrial fibrillation with rapid ventricular rate Weakness and fatigue Hyperlipidemia CKD- Stage 3 Systolic heart failure Hypertension Diabetes- Type 2 Coronary artery disease Spondylolisthesis/Scoliosis 08/23/17-admission Admit to CCU to observation status under the care of Dr Wilcox Placed to Dr. Chavez for further cardiac evaluation recommendations. Will need further rate control with RVR Obtain CBC, CMP, magnesium, troponin, urinalysis and twelve-lead EKG on admission. Monitor on cardiac medical laboratory manager Accu-Cheks. Given history of type II diabetes Place patient nothing by mouth at this time until further cardiac evaluation and plan has been warmed. Zofran available as needed for nausea NS at 100 ML/hr for gently dehydration Will evaluate home medications once they are reconciled SCDs to bilateral lower extremity for DVT prophylaxis She does wish to be a full code and this orders written. Will discuss further orders and plan of care with attending, Dr. Wilcox At time of discharge medical care will return to primary care provider, Dr Carias 08/24/17 Converted to sinus rhythm yesterday with cardioversion; rhythm has remains stable. Eliquis/brilinta resume today per cardiology. Flecainide started yesterday evening. Persistent hypotension after 2 L normal saline yesterday evening led to low dose Levophed overnight-weaned off this morning. Systolic blood pressures in the 60s at time yesterday evening. The patient additionally received a single dose of IV hydrocortisone for possible adrenal insufficiency; cortisol level pending. Will not continue IV steroids as blood pressure stable today. Creatinine up today, persistent metabolic acidosis-reassess electrolytes/ creatinine this afternoon. Suspect lactic acidosis due to hypotension associated with tachyarrhythmia. Insulin resumed per home regimen-dose is decreased slightly to account for hospital diet. <Jeff Chavez - Last Filed: 09/01/17 17:33> Exam Vital signs: Temperature 98.5 F 08/28/17 11:00 Pulse Rate 65 08/28/17 11:00 Respiratory Rate 16 08/28/17 11:00 Blood Pressure 149/78 H 08/28/17 11:00 Pulse Oximetry 94 08/28/17 11:00 Inpatient Medications: Discontinued Medications Generic Name Dose Route Start Last Admin Trade Name Freq PRN Reason Stop Dose Admin Acetaminophen 650 mg 08/23/17 18:27 08/26/17 08:50 Tylenol PO 650 mg Q4H PRN Administration Pain Apixaban 2.5 mg 08/24/17 11:25 08/24/17 20:47 Eliquis PO 2.5 mg BID ELINA Administration Apixaban 2.5 mg 08/25/17 09:00 08/28/17 09:02 Eliquis PO 2.5 mg BID ELINA Administration Benzonatate 200 mg 08/25/17 15:11 08/28/17 16:03 Tessalon Perles PO 200 mg TID PRN Administration cough Bumetanide 1 mg 08/25/17 16:01 08/25/17 16:26 Bumex 1 Mg/4 Ml Inj. IVP 08/25/17 16:02 1 mg O ONE Administration Bumetanide 1 mg 08/26/17 09:20 08/28/17 14:44 Bumex 1 Mg Tab PO 1 mg [id number] ELINA Administration Enoxaparin Sodium 70 mg 08/23/17 22:13 Lovenox SQ BID ELINA Flecainide Acetate 50 mg 08/23/17 21:00 08/28/17 09:03 Tambocor PO 50 mg BID ELINA Administration Flecainide Acetate 100 mg 08/23/17 15:09 08/23/17 15:58 Tambocor PO 08/23/17 15:10 100 mg O ONE Administration Guaifenesin 1,200 mg 08/27/17 21:00 08/28/17 09:03 Mucinex La PO 1,200 mg BID ELINA Administration Guaifenesin/Codeine Phosphate 2.5 - 5 ml 08/27/17 12:40 08/27/17 13:30 Robitussin Ac PO 5 ml Q4H PRN Administration Cough /Congestion Heparin Sodium (Porcine) 5,000 units 08/23/17 22:15 08/24/17 08:47 Heparin Sq SQ 5,000 units Q12HR ELINA Administration Hydrocortisone Sodium Succinate 100 mg 08/24/17 01:10 08/24/17 01:29 Solu-Cortef IVP 08/24/17 01:11 100 mg O ONE Administration Esmolol HCl 2,500 mg in 250 mls @ 21.66 mls/hr 08/23/17 10:39 Brevibloc Drip IV .[id number] PRN Protocol 50 MCG/KG/MIN Amiodarone HCl 450 mg/ Sodium 250 mls @ 33.33 mls/hr 08/23/17 12:00 08/23/17 12:29 Chloride IV 08/23/17 18:00 0 mg/min .Q7H31M ELINA 0 mls/hr 1 MG/MIN Infusion Amiodarone HCl 150 mg/ Sodium 103 mls @ 618 mls/hr 08/23/17 11:15 08/23/17 11 :44 Chloride IV 08/23/17 11:24 618 mls/hr O ONE Administration Amiodarone HCl 900 mg/ Sodium 500 mls @ 16.66 mls/hr 08/23/17 18:00 Chloride IV .Q24H ELINA 0.5 MG/MIN Sodium Chloride 1,000 mls @ 100 mls/hr 08/23/17 11:30 08/25/17 09:54 1/2 Normal Saline IV Infused .Q10H ELINA Infusion Sodium Chloride 500 mls @ 999.9 mls/hr 08/23/17 18:30 08/23/17 18:55 Normal Saline IV 08/23/17 18:31 Infused .Q30M ELINA Infusion Sodium Chloride 500 mls @ 999.9 mls/hr 08/23/17 20:45 08/23/17 21:11 Normal Saline IV 08/23/17 20:46 Infused .Q30M ELINA Infusion Sodium Chloride 500 mls @ 999.9 mls/hr 08/23/17 22:00 Normal Saline IV .Q30M ELINA Sodium Chloride 500 mls @ 250 mls/hr 08/23/17 22:45 08/24/17 00:30 Normal Saline IV 08/23/17 22:46 Infused .Q2H ELINA Infusion Norepinephrine Bitartrate 4, 254 mls @ 38.1 mls/hr 08/24/17 01:08 08/26/17 14 :18 000 mcg/ Sodium Chloride IV Infused .Q6H40M PRN Titration Protocol 10 MCG/MIN Sodium Chloride 1,000 mls @ 150 mls/hr 08/25/17 09:45 08/26/17 14:18 Normal Saline IV Not Given .Q6H40M ELINA Sodium Bicarbonate 50 meq/ 1,050 mls @ 75 mls/hr 08/25/17 17:00 08/27/17 10: 30 Sodium Chloride IV Infused .Q14H ELINA Infusion Insulin Aspart 1 - 5 unit 08/24/17 10:20 08/28/17 14:44 Novolog SQ 2 unit SS PRN Administration Hyperglycemia Protocol Insulin Human Isoph/Insulin Regular 12 unit 08/25/17 07:30 08/28/17 09:04 Novolin 70/30 SQ 12 unit [id number] ELINA Administration Insulin Human Isoph/Insulin Regular 10 unit 08/24/17 17:00 08/27/17 18:09 Novolin 70/30 SQ 10 unit ACS ELINA Administration Menthol 1 lozenge 08/27/17 09:59 08/27/17 15:00 Ricola Sf MM 1 lozenge PRN PRN Administration Cough Metoclopramide HCl 5 mg 08/25/17 17:13 Reglan IVP Q6H PRN Metoprolol Tartrate 5 mg 08/23/17 10:37 08/23/17 11:02 Lopressor IVP 08/23/17 10:38 5 mg ONCE ONE Administration Ondansetron HCl 4 mg 08/23/17 09:29 08/25/17 10:04 Zofran IVP 4 mg Q6H PRN Administration Nausea Ondansetron HCl 4 mg 08/25/17 09:38 08/26/17 06:12 Zofran IVP 4 mg Q6H PRN Administration Nausea &/or vomiting Potassium Chloride 40 meq 08/27/17 08:49 08/27/17 09:09 K-Dur 20 Meq Tablet PO 08/27/17 08:50 40 meq O ONE Administration Potassium Chloride 20 meq 08/27/17 17:30 08/28/17 09:02 K-Dur 20 Meq Tablet PO 20 meq BIDWM ELINA Administration Potassium Chloride 20 meq 08/28/17 12:00 08/28/17 12:44 K-Dur 20 Meq Tablet PO 20 meq TIDWM ELINA Administration Ticagrelor 90 mg 08/24/17 11:24 08/28/17 09:03 Brilinta PO 90 mg BID ELINA Administration Tramadol HCl 50 mg 08/24/17 01:11 08/24/17 01:56 Ultram PO 50 mg Q4H PRN Administration Pain Results 08/26/17 04:45 08/28/17 04:32 Assessment and Plan - Assessment and Plan (1) Atrial flutter Status: Acute (2) HTN (hypertension) Problem details: Well controlled. Status: Chronic (3) Hyperlipidemia Problem details: Continue home dose Pravastatin 40mg daily. Status: Chronic (4) Atherosclerotic heart disease of [place] coronary artery without angina pectoris Status: Acute (5) Type 2 diabetes mellitus without complications Status: Acute (6) Non-ST elevation myocardial infarction (NSTEMI), type 2 Status: Acute - Attestation Attestation Narrative: 09/01/17 17:33 Recommendation After examining the patient I agree with the above assessment. I am involved in the formulation of the patient's plan of care. Hospital Course Summary Disclaimer: The visit summary below is not to be considered part of the above Progress Note.
--- NOTE | 2017-08-25 15:51 | XRay Report ---
Indication: cough PROCEDURE: XR chest 1V: Encounter: Initial Comparison: August 23, 2017 Findings: Interval development of mild pulmonary edema with hazy right infrahilar airspace opacity. Small pleural effusions are new. No pneumothorax. Heart size and mediastinal contours are stable. Impression: New mild pulmonary edema. Right lower lobe airspace opacity could represent atelectasis or early pneumonia. .
[2017-08-25] MEDS: FLECAINIDE 50 MG TABLET PO SCH ×2 (16:29→23:50)
--- NOTE | 2017-08-25 16:45 | Progress Note ---
- Date 08/25/17 Subjective: Mrs. Davenport complains of nausea and bilious emesis this morning. She had a bowel movement yesterday and is not having reflux or generalized abdominal pain. She additionally complains of cough which developed this morning; there is minimal sputum production and she has some minor dyspnea associated with coughing. Urine output has been poor overnight but she thinks she is voiding more this morning and she did yesterday. She denies dysuria. She slept all right and denies lightheadedness or fevers overnight or this morning. She denies chest pain or palpitations. Objective Vital signs: Temperature 98.2 F 08/25/17 12:00 Pulse Rate 68 08/25/17 13:00 Respiratory Rate 35 H 08/25/17 13:00 Blood Pressure 134/79 08/25/17 13:00 Pulse Oximetry 100 -RA 08/25/17 13:00 I/O 1983/235 EXAM General-NAD, alert HEENT-conjunctiva clear, sclera anicteric, oropharynx clear Lungs-respirations nonlabored, good airflow, breath sounds clear; reevaluated later in the day at which time lungs remain clear without crackles or wheezing Cardiac-regular rhythm, S1-S2 Abd-soft, bowel sounds present; minor tenderness in the epigastrium but no specific right upper quadrant tenderness; no guarding Ext-+1 edema bilateral lower extremities Neuro-mild left ptosis intermittently evident, MAEW Psych-calm, cooperative - Rhythm: Normal Sinus Rhythm, Bundle Branch Block Height/Weight/BMI: Height 1.57 m Weight 73.8 kg Body Mass Index 29.1 Results - Labs CBC & Chem 7: 08/25/17 05:18 08/25/17 16:05 Labs: Bicarbonate 16, BUN 55, creatinine 2.3 this morning; repeat creatinine 2.1 this afternoon with BUN 56 Urine sodium 8, urine creatinine 113.9, fractional excretion sodium 0.12% UA with +1 protein, +1 occult blood, 0-1 RBC, 1-3 WBC Lipase 132 - ABG Interpretation ABG results: 08/23/17 23:13 ABG pH 7.387 ABG pCO2 20 L* ABG pO2 96.1 ABG HCO3 12.1 L ABG Total CO2 12.7 L ABG O2 Saturation 97.6 ABG Base Excess -10.6 L - Imaging and Cardiology Chest x-ray Status: image reviewed by me (chest x-ray demonstrates increased vascular markings bilaterally with localized right lower lobe infiltrate raising question of early pneumonia versus atelectasis) Assessment and Plan (1) Atrial fibrillation with RVR Current visit: Yes Status: Acute Assessment and Plan: Impression Atrial fibrillation with rapid ventricular rate Hypotension post cardioversion Metabolic acidosis/Lactic acidosis LISA on CKD- Stage 3 Cough, possible CHF Hyperkalemia Elevated troponin-probable type II MA CAD Weakness and fatigue Hyperlipidemia Systolic heart failure Hypertension-chronic Diabetes- Type 2 Coronary artery disease Spondylolisthesis/Scoliosis Plan Converted to sinus rhythm 08/23 with cardioversion; rhythm has remains stable. Ejection fraction 40% last fall. Eliquis/brilinta resumed yesterday per cardiology. Flecainide started 08/23- patient refused this morning due to nausea and general sensitivity to medications. Blood pressure stable overnight but urine output poor, BUN/creatinine climbing with low urine sodium and fractional excretion sodium suggesting prerenal state although ATN probable given prolonged hypotension. Creatinine has remained stable this afternoon although BUN is up a little further-continue fluids. Chest x-ray suggests mild pulmonary edema but oxygenating well and exam unremarkable; because urine output remains poor will give a single dose of Bumex at this time to promote urine output and improve renal perfusion. Bicarbonate remains low at 16-fluids changed from normal saline to half-normal with 1 amp of bicarbonate. Blood sugars stable, morning insulin held today due to impaired oral intake. Discussed with nursing and cardiology. DVT Prophylaxis: Eliquis Resuscitation Status: Full Code - Physician Narrative Narrative: Date: 08/25/17 Time: 1641 Hospital Course Summary Disclaimer: The visit summary below is not to be considered part of the above Progress Note. Hospital Course: Impression Atrial fibrillation with rapid ventricular rate Weakness and fatigue Hyperlipidemia CKD- Stage 3 Systolic heart failure Hypertension Diabetes- Type 2 Coronary artery disease Spondylolisthesis/Scoliosis 08/23/17-admission Admit to CCU to observation status under the care of Dr Wilcox Placed to Dr. Chavez for further cardiac evaluation recommendations. Will need further rate control with RVR Obtain CBC, CMP, magnesium, troponin, urinalysis and twelve-lead EKG on admission. 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 Given history of type II diabetes Place patient nothing by mouth at this time until further cardiac evaluation and plan has been warmed. Zofran available as needed for nausea NS at 100 ML/hr for gently dehydration Will evaluate home medications once they are reconciled SCDs to bilateral lower extremity for DVT prophylaxis She does wish to be a full code and this orders written. Will discuss further orders and plan of care with attending, Dr. Wilcox At time of discharge medical care will return to primary care provider, Dr Carias 08/24/17 Converted to sinus rhythm yesterday with cardioversion; rhythm has remains stable. Eliquis/brilinta resume today per cardiology. Flecainide started yesterday evening. Persistent hypotension after 2 L normal saline yesterday evening led to low dose Levophed overnight-weaned off this morning. Systolic blood pressures in the 60s at time yesterday evening. The patient additionally received a single dose of IV hydrocortisone for possible adrenal insufficiency; cortisol level pending. Will not continue IV steroids as blood pressure stable today. Creatinine up today, persistent metabolic acidosis-reassess electrolytes/ creatinine this afternoon. Suspect lactic acidosis due to hypotension associated with tachyarrhythmia. Insulin resumed per home regimen-dose is decreased slightly to account for hospital diet. 08/25/17 Blood pressure stable overnight but urine output poor, BUN/creatinine climbing with low urine sodium and fractional excretion sodium suggesting prerenal state although ATN probable given prolonged hypotension. Creatinine has remained stable this afternoon although BUN is up a little further-continue fluids. Chest x-ray suggests mild pulmonary edema but oxygenating well and exam unremarkable; because urine output remains poor will give a single dose of Bumex at this time to promote urine output and improve renal perfusion. Bicarbonate remains low at 16-fluids changed from normal saline to half-normal with 1 amp of bicarbonate. Blood sugars stable, morning insulin held today due to impaired oral intake.
[2017-08-25] MEDS ORDERED: METOCLOPRAMIDE 10mg/2ml INJECTION IVP PRN (17:13)
[2017-08-25] MEDS: SODIUM BICARBONATE 50 MEQ in 1/2 NS 1,000 ML IV SCH (18:01)
[2017-08-25] MEDS: ACETAMINOPHEN 325 MG TABLET PO PRN (23:50)
[2017-08-26] MEDS: SODIUM BICARBONATE 50 MEQ in 1/2 NS 1,000 ML IV SCH ×4 (02:30→22:00)
[2017-08-26] MEDS: ONDANSETRON 4 MG/2 ML INJECTION IVP PRN (06:12)
[2017-08-26] MEDS: ACETAMINOPHEN 325 MG TABLET PO PRN (08:50)
[2017-08-26] MEDS: APIXABAN 2.5 MG TABLET PO SCH ×2 (08:51→20:44)
[2017-08-26] MEDS: INSULIN NPH/REG 70/30 INJECTION SQ SCH ×2 (08:57→18:42)
[2017-08-26] MEDS: TICAGRELOR 90 MG TABLET PO SCH ×2 (09:06→20:43)
[2017-08-26] MEDS: BUMETANIDE 1 MG TABLET PO SCH ×2 (11:19→15:21)
--- NOTE | 2017-08-26 12:18 | Cardiology Progress Note ---
<Valentina Du L - Last Filed: 08/27/17 12:34> Subjective Principal diagnosis: A Flutter Interval history: Jovita is seen in follow up for atrial flutter. She remains in SR, SB. RN presents concern of QT length on this AM ECG. Pt reports feeling improved, urinating frequently due to IV bumex. Denies palpitations, chest pain. Admits some mild dyspnea. Exam Vital signs: Temperature 98.0 F 08/26/17 12:00 Pulse Rate 64 08/26/17 07:41 Respiratory Rate 40 H 08/26/17 06:07 Blood Pressure 132/72 08/26/17 06:07 Pulse Oximetry 98 08/26/17 06:07 Inpatient Medications: Generic Name Dose Route Start Last Admin Trade Name Freq PRN Reason Stop Dose Admin Acetaminophen 650 mg 08/23/17 18:27 08/26/17 08:50 Tylenol PO 650 mg Q4H PRN Administration Pain Apixaban 2.5 mg 08/25/17 09:00 08/26/17 08:51 Eliquis PO 2.5 mg BID ELINA Administration Benzonatate 200 mg 08/25/17 15:11 Tessalon Perles PO TID PRN cough Bumetanide 1 mg 08/26/17 09:20 08/26/17 11:19 Bumex 1 Mg Tab PO 1 mg [id number] ELINA Administration Flecainide Acetate 50 mg 08/23/17 21:00 08/25/17 23:50 Tambocor PO 50 mg BID ELINA Administration Norepinephrine Bitartrate 4, 254 mls @ 38.1 mls/hr 08/24/17 01:08 08/24/17 11 :17 000 mcg/ Sodium Chloride IV 0 mcg/min .Q6H40M PRN 0 mls/hr Protocol Titration 10 MCG/MIN Sodium Bicarbonate 50 meq/ 1,050 mls @ 125 mls/hr 08/25/17 17:00 08/26/17 11: 21 Sodium Chloride IV 125 mls/hr .Q8H24M ELINA Administration Insulin Aspart 1 - 5 unit 08/24/17 10:20 Novolog SQ SS PRN Hyperglycemia Protocol Insulin Human Isoph/Insulin Regular 12 unit 08/25/17 07:30 08/26/17 08:57 Novolin 70/30 SQ 12 unit [id number] LEINA Administration Insulin Human Isoph/Insulin Regular 10 unit 08/24/17 17:00 08/25/17 19:57 Novolin 70/30 SQ Not Given ACS COUNTS INCLUDE 234 BEDS AT [facility] Metoclopramide HCl 5 mg 08/25/17 17:13 Reglan IVP Q6H PRN Ondansetron HCl 4 mg 08/25/17 09:38 08/26/17 06:12 Zofran IVP 4 mg Q6H PRN Administration Nausea &/or vomiting Ticagrelor 90 mg 08/24/17 11:24 08/26/17 09:06 Brilinta PO 90 mg BID ELINA Administration Tramadol HCl 50 mg 08/24/17 01:11 08/24/17 01:56 Ultram PO 50 mg Q4H PRN Administration Pain Discontinued Medications Generic Name Dose Route Start Last Admin Trade Name Freq PRN Reason Stop Dose Admin Apixaban 2.5 mg 08/24/17 11:25 08/24/17 20:47 Eliquis PO 2.5 mg BID ELINA Administration Bumetanide 1 mg 08/25/17 16:01 08/25/17 16:26 Bumex 1 Mg/4 Ml Inj. IVP 08/25/17 16:02 1 mg O ONE Administration Enoxaparin Sodium 70 mg 08/23/17 22:13 Lovenox SQ BID ELINA Flecainide Acetate 100 mg 08/23/17 15:09 08/23/17 15:58 Tambocor PO 08/23/17 15:10 100 mg O ONE Administration Heparin Sodium (Porcine) 5,000 units 08/23/17 22:15 08/24/17 08:47 Heparin Sq SQ 5,000 units Q12HR ELINA Administration Hydrocortisone Sodium Succinate 100 mg 08/24/17 01:10 08/24/17 01:29 Solu-Cortef IVP 08/24/17 01:11 100 mg O ONE Administration Esmolol HCl 2,500 mg in 250 mls @ 21.66 mls/hr 08/23/17 10:39 Brevibloc Drip IV .[id number] PRN Protocol 50 MCG/KG/MIN Amiodarone HCl 450 mg/ Sodium 250 mls @ 33.33 mls/hr 08/23/17 12:00 08/23/17 12:29 Chloride IV 08/23/17 18:00 0 mg/min .Q7H31M ELINA 0 mls/hr 1 MG/MIN Infusion Amiodarone HCl 150 mg/ Sodium 103 mls @ 618 mls/hr 08/23/17 11:15 08/23/17 11 :44 Chloride IV 08/23/17 11:24 618 mls/hr O ONE Administration Amiodarone HCl 900 mg/ Sodium 500 mls @ 16.66 mls/hr 08/23/17 18:00 Chloride IV .Q24H ELINA 0.5 MG/MIN Sodium Chloride 1,000 mls @ 100 mls/hr 08/23/17 11:30 08/25/17 09:54 1/2 Normal Saline IV Infused .Q10H ELINA Infusion Sodium Chloride 500 mls @ 999.9 mls/hr 08/23/17 18:30 08/23/17 18:55 Normal Saline IV 08/23/17 18:31 Infused .Q30M ELINA Infusion Sodium Chloride 500 mls @ 999.9 mls/hr 08/23/17 20:45 08/23/17 21:11 Normal Saline IV 08/23/17 20:46 Infused .Q30M ELINA Infusion Sodium Chloride 500 mls @ 999.9 mls/hr 08/23/17 22:00 Normal Saline IV .Q30M ELINA Sodium Chloride 500 mls @ 250 mls/hr 08/23/17 22:45 08/24/17 00:30 Normal Saline IV 08/23/17 22:46 Infused .Q2H ELINA Infusion Sodium Chloride 1,000 mls @ 150 mls/hr 08/25/17 09:45 08/25/17 17:00 Normal Saline IV Infused .Q6H40M ELINA Infusion Metoprolol Tartrate 5 mg 08/23/17 10:37 08/23/17 11:02 Lopressor IVP 08/23/17 10:38 5 mg ONCE ONE Administration Ondansetron HCl 4 mg 08/23/17 09:29 08/25/17 10:04 Zofran IVP 4 mg Q6H PRN Administration Nausea - Constitutional no acute distress - Routine HEENT Exam Head: Present: normocephalic, atraumatic Eye: Present: PERRL ENT: Present: mucous membranes moist - Routine Neck Exam Absent: JVD, carotid bruit - Routine Respiratory Exam Present: CTA bilaterally - Routine Cardiovascular Exam Present: murmur (II/IV), bradycardia - Routine Abdominal Exam Present: soft, normoactive bowel sounds - Routine Extremities Exam Present: edema (mild BLE edema) - Routine Skin Exam Present: intact - Routine Neurological Exam Present: alert, oriented X3 - Routine Psychiatric Exam Present: normal affect Results 08/26/17 04:45 08/27/17 04:44 CBC 08/26/17 Range/Units 04:45 WBC 10.5 (4.5-11.0) T/MM3 RBC 4.08 (4.00-5.20) M/MM3 Hgb 12.1 (12-16) GM/DL Hct 37.0 (36-46) % Plt Count 245 (130-400) T/MM3 Neut # (Auto) Not performed Lymph # (Auto) Not performed [place] # (Auto) Not performed Eos # (Auto) Not performed Baso # (Auto) Not performed Comprehensive Metabolic Panel 08/25/17 08/26/17 Range/Units 16:05 04:45 Sodium 137 138 (134-144) MEQ/L Potassium 4.9 4.3 (3.6-5) MEQ/L Chloride 105 106 (98-107) MEQ/L Carbon Dioxide 16 L 17 L (22-30) MEQ/L BUN 56.0 H* 52.0 H* (7-17) MG/DL Creatinine 2.1 H D 1.8 H D (0.7-1.2) mg/dL Glucose 168 H 164 H (65-110) MG/DL Calcium 7.9 L 7.9 L (8.4-10.2) MG/DL Albumin 3.0 L (3.5-5.0) g/dL Intake and Output 08/25/17 08/26/17 08/26/17 22:59 06:59 14:59 Intake Total 507.917 / 507.917 927.083 / 112.973 2004 / 1050 Output Total 425 / 425 1050 / 1050 Balance 82.917 / 82.917 -122.917 / -938.235 0583 / 1050 Intake: IV 507.917 / 507.917 927.083 / 983.617 8610 / 1050 Ns 1,000 ml @ 150 mls/hr IV . 385 / 385 Q6H40M ELINA Rx#:[id number] Sodium Bicarbonate 50 meq In 1/ 122.917 / 122.917 927.083 / 286.717 5513 / 1050 2 Ns 1,000 ml @ 125 mls/hr IV . Q8H24M ELINA Rx#:[id number] Output: Urine 425 / 425 1050 / 1050 Other: Urine Appearance Clear Clear Clear Urine Color Yellow Pale Pale Yellow Urine Odor Normal Stool Color Brown Stool Consistency Formed Size of Bowel Movement Small # Voids 1 1 1 # Bowel Movements 1 Weight 78.1 kg Patient Weight 08/27/17 07:59 Weight 78.1 kg - Imaging and Cardiology Echo: pending Assessment and Plan - Assessment and Plan (1) Atrial flutter Status: Acute (2) HTN (hypertension) Problem details: Well controlled. Status: Chronic (3) Hyperlipidemia Problem details: Continue home dose Pravastatin 40mg daily. Status: Chronic (4) Atherosclerotic heart disease of [place] coronary artery without angina pectoris Status: Acute (5) Type 2 diabetes mellitus without complications Status: Acute (6) Non-ST elevation myocardial infarction (NSTEMI), type 2 Status: Acute - Assessment and Plan Atrial fibrillation with rapid ventricular rate Systolic HF NSTEMI CAD s/p RCA stent 03/2017 (on Brilinta) Hyperlipidemia + influenza B CKD- Stage 3 Hypertension Diabetes- Type 2 08/23/17 A Flutter: Chronic, unknown onset, asymptomatic - Metoprolol 5mg IVP X1 - Esmolol drip fro rate control - Anticoagulated on Eliquis - Amiodarone bolus and drip - Check TSH and Mag Patient did not tolerate Amiodarone. Amiodarone stopped - sedation provided and DCCV successful to SR - Start Flecainide 100mg now and 50mg BID Thank you for allowing us to participate in the care of this patient. 08/24/17 BP stable, remains on Levophed, wean off - HR bradycardia but SR, LBBB. Denies symptoms - Continue Flecainide for AAT. - Elevated troponin, likely due to low cardiac output, hypotension and demand ischemia with RVR. - 1) 0.112, 2) 0.126, 3) 0.165, 4) 0.292, 5)0.438, 6) 0.392 trending down - Scr 1.9 today, repeat K+ 5.1 08/25/17 - Coughs until vomiting, not likely caused by AAT - Continue Flecainide for AAT - EKG in AM - Amylase and Lipase - Continue to monitor telemetry 08/26/17 - lipase WNL - EKG this am SR LBBB w/pac QTc 557, 0800 ECG SR LBBB QTc 513, images reviewed by Dr. Chavez - No arrhythmia on tele, remains SB, SR - BNP today 12,200; attending diuresing with IV bumex; lytes stable. Creatinine improving. - continue flecainide 50mg every 12 hours This pt was seen and examined by me, Valentina Du, DIRECTOR [employer]; case was discussed with Dr. Chavez he agrees with plan. Hospital Course Summary Disclaimer: The visit summary below is not to be considered part of the above Progress Note. Hospital Course: Impression Atrial fibrillation with rapid ventricular rate Weakness and fatigue Hyperlipidemia CKD- Stage 3 Systolic heart failure Hypertension Diabetes- Type 2 Coronary artery disease Spondylolisthesis/Scoliosis 08/23/17-admission Admit to CCU to observation status under the care of Dr Wilcox Placed to Dr. Chavez for further cardiac evaluation recommendations. Will need further rate control with RVR Obtain CBC, CMP, magnesium, troponin, urinalysis and twelve-lead EKG on admission. 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 Given history of type II diabetes Place patient nothing by mouth at this time until further cardiac evaluation and plan has been warmed. Zofran available as needed for nausea NS at 100 ML/hr for gently dehydration Will evaluate home medications once they are reconciled SCDs to bilateral lower extremity for DVT prophylaxis She does wish to be a full code and this orders written. Will discuss further orders and plan of care with attending, Dr. Wilcox At time of discharge medical care will return to primary care provider, Dr Carias 08/24/17 Converted to sinus rhythm yesterday with cardioversion; rhythm has remains stable. Eliquis/brilinta resume today per cardiology. Flecainide started yesterday evening. Persistent hypotension after 2 L normal saline yesterday evening led to low dose Levophed overnight-weaned off this morning. Systolic blood pressures in the 60s at time yesterday evening. The patient additionally received a single dose of IV hydrocortisone for possible adrenal insufficiency; cortisol level pending. Will not continue IV steroids as blood pressure stable today. Creatinine up today, persistent metabolic acidosis-reassess electrolytes/ creatinine this afternoon. Suspect lactic acidosis due to hypotension associated with tachyarrhythmia. Insulin resumed per home regimen-dose is decreased slightly to account for hospital diet. 08/25/17 Blood pressure stable overnight but urine output poor, BUN/creatinine climbing with low urine sodium and fractional excretion sodium suggesting prerenal state although ATN probable given prolonged hypotension. Creatinine has remained stable this afternoon although BUN is up a little further-continue fluids. Chest x-ray suggests mild pulmonary edema but oxygenating well and exam unremarkable; because urine output remains poor will give a single dose of Bumex at this time to promote urine output and improve renal perfusion. Bicarbonate remains low at 16-fluids changed from normal saline to half-normal with 1 amp of bicarbonate. Blood sugars stable, morning insulin held today due to impaired oral intake. <Jeff Chavez - Last Filed: 08/30/17 07:49> Exam Vital signs: Temperature 98.5 F 08/28/17 11:00 Pulse Rate 65 08/28/17 11:00 Respiratory Rate 16 08/28/17 11:00 Blood Pressure 149/78 H 08/28/17 11:00 Pulse Oximetry 94 08/28/17 11:00 Inpatient Medications: Discontinued Medications Generic Name Dose Route Start Last Admin Trade Name Freq PRN Reason Stop Dose Admin Acetaminophen 650 mg 08/23/17 18:27 08/26/17 08:50 Tylenol PO 650 mg Q4H PRN Administration Pain Apixaban 2.5 mg 08/24/17 11:25 08/24/17 20:47 Eliquis PO 2.5 mg BID ELINA Administration Apixaban 2.5 mg 08/25/17 09:00 08/28/17 09:02 Eliquis PO 2.5 mg BID ELINA Administration Benzonatate 200 mg 08/25/17 15:11 08/28/17 16:03 Tessalon Perles PO 200 mg TID PRN Administration cough Bumetanide 1 mg 08/25/17 16:01 08/25/17 16:26 Bumex 1 Mg/4 Ml Inj. IVP 08/25/17 16:02 1 mg O ONE Administration Bumetanide 1 mg 08/26/17 09:20 08/28/17 14:44 Bumex 1 Mg Tab PO 1 mg [id number] ELINA Administration Enoxaparin Sodium 70 mg 08/23/17 22:13 Lovenox SQ BID ELINA Flecainide Acetate 50 mg 08/23/17 21:00 08/28/17 09:03 Tambocor PO 50 mg BID ELINA Administration Flecainide Acetate 100 mg 08/23/17 15:09 08/23/17 15:58 Tambocor PO 08/23/17 15:10 100 mg O ONE Administration Guaifenesin 1,200 mg 08/27/17 21:00 08/28/17 09:03 Mucinex La PO 1,200 mg BID ELINA Administration Guaifenesin/Codeine Phosphate 2.5 - 5 ml 08/27/17 12:40 08/27/17 13:30 Robitussin Ac PO 5 ml Q4H PRN Administration Cough /Congestion Heparin Sodium (Porcine) 5,000 units 08/23/17 22:15 08/24/17 08:47 Heparin Sq SQ 5,000 units Q12HR ELINA Administration Hydrocortisone Sodium Succinate 100 mg 08/24/17 01:10 08/24/17 01:29 Solu-Cortef IVP 08/24/17 01:11 100 mg O ONE Administration Esmolol HCl 2,500 mg in 250 mls @ 21.66 mls/hr 08/23/17 10:39 Brevibloc Drip IV .[id number] PRN Protocol 50 MCG/KG/MIN Amiodarone HCl 450 mg/ Sodium 250 mls @ 33.33 mls/hr 08/23/17 12:00 08/23/17 12:29 Chloride IV 08/23/17 18:00 0 mg/min .Q7H31M ELINA 0 mls/hr 1 MG/MIN Infusion Amiodarone HCl 150 mg/ Sodium 103 mls @ 618 mls/hr 08/23/17 11:15 08/23/17 11 :44 Chloride IV 08/23/17 11:24 618 mls/hr O ONE Administration Amiodarone HCl 900 mg/ Sodium 500 mls @ 16.66 mls/hr 08/23/17 18:00 Chloride IV .Q24H ELINA 0.5 MG/MIN Sodium Chloride 1,000 mls @ 100 mls/hr 08/23/17 11:30 08/25/17 09:54 1/2 Normal Saline IV Infused .Q10H ELINA Infusion Sodium Chloride 500 mls @ 999.9 mls/hr 08/23/17 18:30 08/23/17 18:55 Normal Saline IV 08/23/17 18:31 Infused .Q30M ELINA Infusion Sodium Chloride 500 mls @ 999.9 mls/hr 08/23/17 20:45 08/23/17 21:11 Normal Saline IV 08/23/17 20:46 Infused .Q30M ELINA Infusion Sodium Chloride 500 mls @ 999.9 mls/hr 08/23/17 22:00 Normal Saline IV .Q30M ELINA Sodium Chloride 500 mls @ 250 mls/hr 08/23/17 22:45 08/24/17 00:30 Normal Saline IV 08/23/17 22:46 Infused .Q2H ELINA Infusion Norepinephrine Bitartrate 4, 254 mls @ 38.1 mls/hr 08/24/17 01:08 08/26/17 14 :18 000 mcg/ Sodium Chloride IV Infused .Q6H40M PRN Titration Protocol 10 MCG/MIN Sodium Chloride 1,000 mls @ 150 mls/hr 08/25/17 09:45 08/26/17 14:18 Normal Saline IV Not Given .Q6H40M ELINA Sodium Bicarbonate 50 meq/ 1,050 mls @ 75 mls/hr 08/25/17 17:00 08/27/17 10: 30 Sodium Chloride IV Infused .Q14H ELINA Infusion Insulin Aspart 1 - 5 unit 08/24/17 10:20 08/28/17 14:44 Novolog SQ 2 unit SS PRN Administration Hyperglycemia Protocol Insulin Human Isoph/Insulin Regular 12 unit 08/25/17 07:30 08/28/17 09:04 Novolin 70/30 SQ 12 unit [id number] ELINA Administration Insulin Human Isoph/Insulin Regular 10 unit 08/24/17 17:00 08/27/17 18:09 Novolin 70/30 SQ 10 unit ACS ELINA Administration Menthol 1 lozenge 08/27/17 09:59 08/27/17 15:00 Ricola Sf MM 1 lozenge PRN PRN Administration Cough Metoclopramide HCl 5 mg 08/25/17 17:13 Reglan IVP Q6H PRN Metoprolol Tartrate 5 mg 08/23/17 10:37 08/23/17 11:02 Lopressor IVP 08/23/17 10:38 5 mg ONCE ONE Administration Ondansetron HCl 4 mg 08/23/17 09:29 08/25/17 10:04 Zofran IVP 4 mg Q6H PRN Administration Nausea Ondansetron HCl 4 mg 08/25/17 09:38 08/26/17 06:12 Zofran IVP 4 mg Q6H PRN Administration Nausea &/or vomiting Potassium Chloride 40 meq 08/27/17 08:49 08/27/17 09:09 K-Dur 20 Meq Tablet PO 08/27/17 08:50 40 meq O ONE Administration Potassium Chloride 20 meq 08/27/17 17:30 08/28/17 09:02 K-Dur 20 Meq Tablet PO 20 meq BIDWM ELINA Administration Potassium Chloride 20 meq 08/28/17 12:00 08/28/17 12:44 K-Dur 20 Meq Tablet PO 20 meq TIDWM ELINA Administration Ticagrelor 90 mg 08/24/17 11:24 08/28/17 09:03 Brilinta PO 90 mg BID ELINA Administration Tramadol HCl 50 mg 08/24/17 01:11 08/24/17 01:56 Ultram PO 50 mg Q4H PRN Administration Pain Results 08/26/17 04:45 08/28/17 04:32 Assessment and Plan - Assessment and Plan (1) Atrial flutter Status: Acute (2) HTN (hypertension) Problem details: Well controlled. Status: Chronic (3) Hyperlipidemia Problem details: Continue home dose Pravastatin 40mg daily. Status: Chronic (4) Atherosclerotic heart disease of [place] coronary artery without angina pectoris Status: Acute (5) Type 2 diabetes mellitus without complications Status: Acute (6) Non-ST elevation myocardial infarction (NSTEMI), type 2 Status: Acute - Attestation Attestation Narrative: 08/30/17 07:46 Recommendation I agree with the above and I am involved in the formulation of the patient's plan of care. 08/30/17 07:48 Hospital Course Summary Disclaimer: The visit summary below is not to be considered part of the above Progress Note.
--- NOTE | 2017-08-26 12:32 | Progress Note ---
- Date 08/26/17 Subjective: Jovita was seen with family members at bedside. She reports persistent dyspnea, primarily with activities but no wheezing. She coughs frequently but has no sputum production. She continues to feel slightly nauseated and has come close to vomiting. Appetite is poor. Complained of some headache this morning. She denies lightheadedness. She is voiding more following initiation of diuretics. She remains on room air and has had no fever or chills. Objective Vital signs: Temperature 98.0 F 08/26/17 12:00 Pulse Rate 64 08/26/17 07:41 Respiratory Rate 40 H 08/26/17 06:07 Blood Pressure 132/72 08/26/17 06:07 Pulse Oximetry 98 - RA 08/26/17 06:07 I/O 3267/1645 NAD, alert Conjugate gaze, conjunctiva clear, sclera anicteric, Respirations nonlabored, good airflow, breath sounds clear, inspiration triggers repetitive cough but no wheezing present Regular rhythm, S1-S2 Abdomen soft, nontender, no guarding, diminished bowel sounds +2 edema bilateral lower extremities Moving all extremities well, skin without rash Pleasant, cooperative, euthymic Rhythm: Normal Sinus Rhythm, Bundle Branch Block Height/Weight/BMI: Height 1.57 m Weight 78.1 kg Body Mass Index 29.1 Results - Labs CBC & Chem 7: 08/26/17 04:45 08/26/17 04:45 Labs: ProBNP 12,200 Magnesium 1.9 Assessment and Plan (1) Atrial fibrillation with RVR Current visit: Yes Status: Acute Assessment and Plan: Impression Atrial fibrillation with rapid ventricular rate Hypotension post cardioversion Metabolic acidosis/Lactic acidosis LISA on CKD- Stage 3 Cough, possible CHF Hyperkalemia Elevated troponin-probable type II CA CAD Weakness and fatigue Hyperlipidemia Systolic heart failure Hypertension-chronic Diabetes- Type 2 Coronary artery disease Spondylolisthesis/Scoliosis Plan Converted to sinus rhythm 08/23 with cardioversion; rhythm has remains stable. Ejection fraction 40% last fall. Eliquis/brilinta resumed 08/24 per cardiology. Flecainide started 08/23. Blood pressure remains stable overnight/this morning; urine output improved with diuresis/fluids. Creatinine slightly improved today-continue to monitor closely. Persistent mild metabolic acidosis-continue low-volume bicarbonate infusion. Persistent cough consistent with mild CHF, continue diuresis and reassess chest x-ray in a.m. Stable to transfer out of unit; continue telemetry-remains in sinus rhythm by my review of telemetry strips. - Physician Narrative Narrative: Date: 08/26/17 Time: 1227 Hospital Course Summary Disclaimer: The visit summary below is not to be considered part of the above Progress Note. Hospital Course: Impression Atrial fibrillation with rapid ventricular rate Weakness and fatigue Hyperlipidemia CKD- Stage 3 Systolic heart failure Hypertension Diabetes- Type 2 Coronary artery disease Spondylolisthesis/Scoliosis 08/23/17-admission Admit to CCU to observation status under the care of Dr Wilcox Placed to Dr. Chavez for further cardiac evaluation recommendations. Will need further rate control with RVR Obtain CBC, CMP, magnesium, troponin, urinalysis and twelve-lead EKG on admission. Monitor on cardiac learning and development assistant Accu-Cheks. Given history of type II diabetes Place patient nothing by mouth at this time until further cardiac evaluation and plan has been warmed. Zofran available as needed for nausea NS at 100 ML/hr for gently dehydration Will evaluate home medications once they are reconciled SCDs to bilateral lower extremity for DVT prophylaxis She does wish to be a full code and this orders written. Will discuss further orders and plan of care with attending, Dr. Wilcox At time of discharge medical care will return to primary care provider, Dr Carias 08/24/17 Converted to sinus rhythm yesterday with cardioversion; rhythm has remains stable. Eliquis/brilinta resume today per cardiology. Flecainide started yesterday evening. Persistent hypotension after 2 L normal saline yesterday evening led to low dose Levophed overnight-weaned off this morning. Systolic blood pressures in the 60s at time yesterday evening. The patient additionally received a single dose of IV hydrocortisone for possible adrenal insufficiency; cortisol level pending. Will not continue IV steroids as blood pressure stable today. Creatinine up today, persistent metabolic acidosis-reassess electrolytes/ creatinine this afternoon. Suspect lactic acidosis due to hypotension associated with tachyarrhythmia. Insulin resumed per home regimen-dose is decreased slightly to account for hospital diet. 08/25/17 Blood pressure stable overnight but urine output poor, BUN/creatinine climbing with low urine sodium and fractional excretion sodium suggesting prerenal state although ATN probable given prolonged hypotension. Creatinine has remained stable this afternoon although BUN is up a little further-continue fluids. Chest x-ray suggests mild pulmonary edema but oxygenating well and exam unremarkable; because urine output remains poor will give a single dose of Bumex at this time to promote urine output and improve renal perfusion. Bicarbonate remains low at 16-fluids changed from normal saline to half-normal with 1 amp of bicarbonate. Blood sugars stable, morning insulin held today due to impaired oral intake. 08/26/17 Blood pressure remains stable overnight/this morning; urine output improved with diuresis/fluids. Creatinine slightly improved today-continue to monitor closely. Persistent mild metabolic acidosis-continue low-volume bicarbonate infusion. Persistent cough consistent with mild CHF, continue diuresis and reassess chest x-ray in a.m. Stable to transfer out of unit
[2017-08-26] MEDS: FLECAINIDE 50 MG TABLET PO SCH ×2 (13:08→23:08)
[2017-08-26] MEDS: NS 1,000 ML IV SCH (14:18)
[2017-08-26] MEDS: BENZONATATE 200 MG CAPSULE PO PRN (15:21)
[2017-08-26] MEDS: INSULIN ASPART 100unit/ml INJECTION SQ PRN (18:41)
[2017-08-27] MEDS: SODIUM BICARBONATE 50 MEQ in 1/2 NS 1,000 ML IV SCH (00:50)
[2017-08-27] MEDS: FLECAINIDE 50 MG TABLET PO SCH ×2 (09:04→15:37)
[2017-08-27] MEDS: BUMETANIDE 1 MG TABLET PO SCH ×2 (09:09→13:30)
[2017-08-27] MEDS: BENZONATATE 200 MG CAPSULE PO PRN (09:09)
[2017-08-27] MEDS: INSULIN NPH/REG 70/30 INJECTION SQ SCH ×2 (09:10→18:09)
[2017-08-27] MEDS: TICAGRELOR 90 MG TABLET PO SCH ×2 (09:10→20:57)
[2017-08-27] MEDS: APIXABAN 2.5 MG TABLET PO SCH ×2 (09:10→20:57)
--- NOTE | 2017-08-27 09:49 | Progress Note ---
- Date 08/27/17 Subjective: F/U: a-fib with RVR, hypokalemia. Jovita is seen while resting in bed with nursing at the bedside. She reports that she is feeling about the same as yesterday and is "tired of being sick". She continues to have a non-productive cough but denies any fevers, chills, chest pain, abdominal pain, nausea, vomiting or dysuria. She does admit to shortness of breath that is worse with exertion. Nursing reports that she had some V-tach this morning lasting 8 seconds. She denies any palpitations but states she did feel more short of breath at that time. Her appetite remains poor but her bowels are moving. Labs today revealed new hypokalemia with potassium 3.1. Objective Vital signs: Temperature 97.8 F 08/27/17 07:37 Pulse Rate 75 08/27/17 08:00 Respiratory Rate 24 08/27/17 07:37 Blood Pressure 133/82 08/27/17 07:37 Pulse Oximetry 97 08/27/17 07:37 Rhythm: Normal Sinus Rhythm, Bundle Branch Block Height/Weight/BMI: Height 5 ft 2 in Weight 184 lb 8.43 oz Body Mass Index 29.1 Comments: Resting in bed with nursing at bedside; no respiratory distress. - Constitutional Present: no acute distress, well nourished, well developed, obese, cooperative - Routine HEENT Exam Head: Present: normocephalic, atraumatic Eye: Present: PERRL. Absent: conjunctival icterus ENT: Present: mucous membranes moist, oropharynx clear - Routine Respiratory Exam Present: dyspnea, decreased breath sounds. Absent: rhonchi, wheezes Comments: dry, non-productive cough; decreased breath sound in right lower base; no conversational dyspnea. - Routine Cardiovascular Exam Present: RRR, S1, S2 Comments: 8 second run of V-tach on telemetry this AM. - Routine Abdominal Exam Present: soft, normoactive bowel sounds, non distended, non tender - Routine Extremities Exam Present: no edema (2+ bilaterally), non tender, full ROM, pulses intact - Routine Back/Spine/Pelvis Exam Back/Spine: Present: full ROM. Absent: vertebral tenderness - Routine Musculoskeletal Exam Musculoskeletal: Present: moving extremities well - Routine Skin Exam Present: intact, dry, warm. Absent: jaundice Comments: afebrile. - Routine Neurological Exam Present: alert, oriented X3, moving all extremities, hearing grossly intact, normal speech - Routine Lymphatic Exam Lymphatic: Absent: lymphedema - Routine Psychiatric Exam Present: normal affect, cooperative Results - Labs CBC & Chem 7: 08/26/17 04:45 08/27/17 04:44 Assessment and Plan (1) Atrial fibrillation with RVR Current visit: Yes Status: Acute Assessment and Plan: Impression Hypokalemia - NEW DIAGNOSIS 08/27/17. Influenza B - NEW DIAGNOSIS 08/25/17. Atrial fibrillation with rapid ventricular rate. Hypotension post cardioversion Metabolic acidosis/Lactic acidosis LISA on CKD- Stage 3 Cough, possible CHF Hyperkalemia - resolved. Elevated troponin-probable type II LA CAD Weakness and fatigue Hyperlipidemia Systolic heart failure Hypertension-chronic Diabetes- Type 2 Coronary artery disease Spondylolisthesis/Scoliosis Plan - 08/27/17: Converted to sinus rhythm 08/23 with cardioversion; 8 second run of V-Tach this AM. Increased dyspnea with persistent non-productive cough. Ejection fraction 40% last fall. Continue to monitor closely on telemetry. Eliquis/brilinta resumed 08/24 per cardiology. Flecainide started 08/23. Being followed by Dr. Chavez. Blood pressure remains stable. Weight trending up, though questionable accuracy of bed scales. New hypokalemia (K 3.1). Gave KCl 40 mEq po this AM and initiate KCl 20 mEq po BID starting this evening. Recheck labs in AM. Creatinine improving. Continue to monitor. Metabolic acidosis improving. Consider discontinuation of bicarbonate infusion. Will discuss with Dr. Torres. Persistent cough consistent - CXR results pending. Will add Ricola and Mucinex given influenza B. DVT Prophylaxis: SCD's, Eliquis Resuscitation Status: Full Code - Time spent with patient Time with patient PN: 25 minutes - Physician Narrative Physician: Suzanne Torres MD Narrative: Date: 08/27/17 Time: 1240 I have independently evaluated and examined this patient. I reviewed the chart, the patient's history, and the PERFORMANCE TEST CONSULTANT/PA's documented findings as above. We discussed and formulated the assessment and plan as above with additions as below: Mrs. Davenport reports nausea has improved although appetite remains poor. She complains persistent exertional dyspnea and nonproductive cough. Respirations are nonlabored and there are faint crackles at the bases-left slightly greater than right. Rhythm was regular at the time of my assessment and lower extremity edema unchanged. Metabolic acidosis has resolved, creatinine improved to 1.4 although BUN remains slightly elevated at 40. Multiple rhythm strips were [id number] irregular tachycardia, complex morphology consistent with baseline complex-likely atrial fibrillation/ aberrancy Tachyarrhythmia discussed with cardiology; twelve-lead EKG reviewed by myself- QTc 505 ms; sinus rhythm Chest x-ray reviewed by myself-mild increased vascular markings, slightly improved from prior film IV fluids discontinued, continue diuresis. Anticipate echocardiogram in a.m. Patient reports she's previously tolerated codeine cough syrups at low dose- Robitussin-AC ordered. Influenza B known prior to admission, acute treatment can be limited to symptoms. Hospital Course Summary Disclaimer: The visit summary below is not to be considered part of the above Progress Note. Hospital Course: Impression Atrial fibrillation with rapid ventricular rate Weakness and fatigue Hyperlipidemia CKD- Stage 3 Systolic heart failure Hypertension Diabetes- Type 2 Coronary artery disease Spondylolisthesis/Scoliosis 08/23/17-admission Admit to CCU to observation status under the care of Dr Wilcox Placed to Dr. Chavez for further cardiac evaluation recommendations. Will need further rate control with RVR Obtain CBC, CMP, magnesium, troponin, urinalysis and twelve-lead EKG on admission. Monitor on cardiac investor relations specialist Accu-Cheks. Given history of type II diabetes Place patient nothing by mouth at this time until further cardiac evaluation and plan has been warmed. Zofran available as needed for nausea NS at 100 ML/hr for gently dehydration Will evaluate home medications once they are reconciled SCDs to bilateral lower extremity for DVT prophylaxis She does wish to be a full code and this orders written. Will discuss further orders and plan of care with attending, Dr. Wilcox At time of discharge medical care will return to primary care provider, Dr Carias 08/24/17 Converted to sinus rhythm yesterday with cardioversion; rhythm has remains stable. Eliquis/brilinta resume today per cardiology. Flecainide started yesterday evening. Persistent hypotension after 2 L normal saline yesterday evening led to low dose Levophed overnight-weaned off this morning. Systolic blood pressures in the 60s at time yesterday evening. The patient additionally received a single dose of IV hydrocortisone for possible adrenal insufficiency; cortisol level pending. Will not continue IV steroids as blood pressure stable today. Creatinine up today, persistent metabolic acidosis-reassess electrolytes/ creatinine this afternoon. Suspect lactic acidosis due to hypotension associated with tachyarrhythmia. Insulin resumed per home regimen-dose is decreased slightly to account for hospital diet. 08/25/17 Blood pressure stable overnight but urine output poor, BUN/creatinine climbing with low urine sodium and fractional excretion sodium suggesting prerenal state although ATN probable given prolonged hypotension. Creatinine has remained stable this afternoon although BUN is up a little further-continue fluids. Chest x-ray suggests mild pulmonary edema but oxygenating well and exam unremarkable; because urine output remains poor will give a single dose of Bumex at this time to promote urine output and improve renal perfusion. Bicarbonate remains low at 16-fluids changed from normal saline to half-normal with 1 amp of bicarbonate. Blood sugars stable, morning insulin held today due to impaired oral intake. 08/26/17 Blood pressure remains stable overnight/this morning; urine output improved with diuresis/fluids. Creatinine slightly improved today-continue to monitor closely. Persistent mild metabolic acidosis-continue low-volume bicarbonate infusion. Persistent cough consistent with mild CHF, continue diuresis and reassess chest x-ray in a.m. Stable to transfer out of unit. Plan - 08/27/17: Converted to sinus rhythm 08/23 with cardioversion; 8 second run of V-Tach this AM. Increased dyspnea with persistent non-productive cough. Ejection fraction 40% last fall. Continue to monitor closely on telemetry. Eliquis/brilinta resumed 08/24 per cardiology. Flecainide started 08/23. Being followed by Dr. Chavez. Blood pressure remains stable. Weight trending up, though questionable accuracy of bed scales. New hypokalemia (K 3.1). Gave KCl 40 mEq po this AM and initiate KCl 20 mEq po BID starting this evening. Recheck labs in AM. Creatinine improving. Continue to monitor. Metabolic acidosis improving. Consider discontinuation of bicarbonate infusion. Will discuss with Dr. Torres. Persistent cough consistent - CXR results pending. Will add Ricola and Mucinex given influenza B.
[2017-08-27] MEDS ORDERED: MENTHOL COUGH DROPS (RICOLA) MM PRN (09:59)
--- NOTE | 2017-08-27 10:19 | XRay Report ---
INDICATION: CHF PROCEDURE: CHEST 2-VIEWS UPRIGHT (PA & LAT) Encounter: Initial COMPARISON: August 25, 2017 FINDINGS: Aeration of the right lower lobe has improved. Interstitial prominence has slightly worsened with small effusions. Upper lung fitzpatrick are clear. No pneumothorax. Heart size and mediastinal contours are stable. Impression: Continued mild pulmonary edema. .
--- NOTE | 2017-08-27 12:25 | Cardiology Progress Note ---
<Valentina Du L - Last Filed: 08/27/17 14:17> Subjective Principal diagnosis: A Flutter Interval history: Jovita is seen in follow up for atrial flutter. She remains in SR, SB. RN presents concern of QT length on this AM ECG, Exam Vital signs: Temperature 98.4 F 08/27/17 11:31 Pulse Rate 65 08/27/17 11:31 Respiratory Rate 20 08/27/17 11:31 Blood Pressure 133/66 08/27/17 11:31 Pulse Oximetry 96 08/27/17 11:31 Inpatient Medications: Generic Name Dose Route Start Last Admin Trade Name Freq PRN Reason Stop Dose Admin Acetaminophen 650 mg 08/23/17 18:27 08/26/17 08:50 Tylenol PO 650 mg Q4H PRN Administration Pain Apixaban 2.5 mg 08/25/17 09:00 08/27/17 09:10 Eliquis PO 2.5 mg BID ELINA Administration Benzonatate 200 mg 08/25/17 15:11 08/27/17 09:09 Tessalon Perles PO 200 mg TID PRN Administration cough Bumetanide 1 mg 08/26/17 09:20 08/27/17 09:09 Bumex 1 Mg Tab PO 1 mg [id number] ELINA Administration Flecainide Acetate 50 mg 08/23/17 21:00 08/27/17 09:04 Tambocor PO Not Given BID ELINA Guaifenesin 1,200 mg 08/27/17 21:00 Mucinex La PO BID ELINA Insulin Aspart 1 - 5 unit 08/24/17 10:20 08/26/17 18:41 Novolog SQ 2 unit SS PRN Administration Hyperglycemia Protocol Insulin Human Isoph/Insulin Regular 12 unit 08/25/17 07:30 08/27/17 09:10 Novolin 70/30 SQ 12 unit [id number] ELINA Administration Insulin Human Isoph/Insulin Regular 10 unit 08/24/17 17:00 08/26/17 18:42 Novolin 70/30 SQ 10 unit ACS ELINA Administration Menthol 1 lozenge 08/27/17 09:59 Ricola Sf MM PRN PRN Cough Metoclopramide HCl 5 mg 08/25/17 17:13 Reglan IVP Q6H PRN Ondansetron HCl 4 mg 08/25/17 09:38 08/26/17 06:12 Zofran IVP 4 mg Q6H PRN Administration Nausea &/or vomiting Potassium Chloride 20 meq 08/27/17 17:30 K-Dur 20 Meq Tablet PO BIDWM ELINA Ticagrelor 90 mg 08/24/17 11:24 08/27/17 09:10 Brilinta PO 90 mg BID ELINA Administration Tramadol HCl 50 mg 08/24/17 01:11 08/24/17 01:56 Ultram PO 50 mg Q4H PRN Administration Pain Discontinued Medications Generic Name Dose Route Start Last Admin Trade Name Freq PRN Reason Stop Dose Admin Apixaban 2.5 mg 08/24/17 11:25 08/24/17 20:47 Eliquis PO 2.5 mg BID ELINA Administration Bumetanide 1 mg 08/25/17 16:01 08/25/17 16:26 Bumex 1 Mg/4 Ml Inj. IVP 08/25/17 16:02 1 mg O ONE Administration Enoxaparin Sodium 70 mg 08/23/17 22:13 Lovenox SQ BID ELINA Flecainide Acetate 100 mg 08/23/17 15:09 08/23/17 15:58 Tambocor PO 08/23/17 15:10 100 mg O ONE Administration Heparin Sodium (Porcine) 5,000 units 08/23/17 22:15 08/24/17 08:47 Heparin Sq SQ 5,000 units Q12HR ELINA Administration Hydrocortisone Sodium Succinate 100 mg 08/24/17 01:10 08/24/17 01:29 Solu-Cortef IVP 08/24/17 01:11 100 mg O ONE Administration Esmolol HCl 2,500 mg in 250 mls @ 21.66 mls/hr 08/23/17 10:39 Brevibloc Drip IV .[id number] PRN Protocol 50 MCG/KG/MIN Amiodarone HCl 450 mg/ Sodium 250 mls @ 33.33 mls/hr 08/23/17 12:00 08/23/17 12:29 Chloride IV 08/23/17 18:00 0 mg/min .Q7H31M ELINA 0 mls/hr 1 MG/MIN Infusion Amiodarone HCl 150 mg/ Sodium 103 mls @ 618 mls/hr 08/23/17 11:15 08/23/17 11 :44 Chloride IV 08/23/17 11:24 618 mls/hr O ONE Administration Amiodarone HCl 900 mg/ Sodium 500 mls @ 16.66 mls/hr 08/23/17 18:00 Chloride IV .Q24H ELINA 0.5 MG/MIN Sodium Chloride 1,000 mls @ 100 mls/hr 08/23/17 11:30 08/25/17 09:54 1/2 Normal Saline IV Infused .Q10H ELINA Infusion Sodium Chloride 500 mls @ 999.9 mls/hr 08/23/17 18:30 08/23/17 18:55 Normal Saline IV 08/23/17 18:31 Infused .Q30M ELINA Infusion Sodium Chloride 500 mls @ 999.9 mls/hr 08/23/17 20:45 08/23/17 21:11 Normal Saline IV 08/23/17 20:46 Infused .Q30M ELINA Infusion Sodium Chloride 500 mls @ 999.9 mls/hr 08/23/17 22:00 Normal Saline IV .Q30M ELINA Sodium Chloride 500 mls @ 250 mls/hr 08/23/17 22:45 08/24/17 00:30 Normal Saline IV 08/23/17 22:46 Infused .Q2H ELINA Infusion Norepinephrine Bitartrate 4, 254 mls @ 38.1 mls/hr 08/24/17 01:08 08/26/17 14 :18 000 mcg/ Sodium Chloride IV Infused .Q6H40M PRN Titration Protocol 10 MCG/MIN Sodium Chloride 1,000 mls @ 150 mls/hr 08/25/17 09:45 08/26/17 14:18 Normal Saline IV Not Given .Q6H40M ELINA Sodium Bicarbonate 50 meq/ 1,050 mls @ 75 mls/hr 08/25/17 17:00 08/27/17 10: 30 Sodium Chloride IV Infused .Q14H ELINA Infusion Metoprolol Tartrate 5 mg 08/23/17 10:37 08/23/17 11:02 Lopressor IVP 08/23/17 10:38 5 mg ONCE ONE Administration Ondansetron HCl 4 mg 08/23/17 09:29 08/25/17 10:04 Zofran IVP 4 mg Q6H PRN Administration Nausea Potassium Chloride 40 meq 08/27/17 08:49 08/27/17 09:09 K-Dur 20 Meq Tablet PO 08/27/17 08:50 40 meq O ONE Administration - Constitutional no acute distress - Routine HEENT Exam Head: Present: normocephalic, atraumatic Eye: Present: EOMI ENT: Present: mucous membranes moist - Routine Respiratory Exam Present: CTA bilaterally - Routine Cardiovascular Exam Present: RRR, murmur (II/IV). Absent: JVD - Routine Abdominal Exam Present: normoactive bowel sounds, non tender - Routine Skin Exam Present: intact - Routine Neurological Exam Present: alert, oriented X3 - Routine Psychiatric Exam Present: normal affect, normal thought process Results 08/26/17 04:45 08/27/17 04:44 Comprehensive Metabolic Panel 08/27/17 Range/Units 04:44 Sodium 144 D (134-144) MEQ/L Potassium 3.1 L D (3.6-5) MEQ/L Chloride 106 (98-107) MEQ/L Carbon Dioxide 26 D (22-30) MEQ/L BUN 40.0 H (7-17) MG/DL Creatinine 1.4 H D (0.7-1.2) mg/dL Glucose 91 (65-110) MG/DL Calcium 8.2 L (8.4-10.2) MG/DL Intake and Output 08/26/17 08/27/17 08/27/17 21:59 06:59 14:59 Intake Total 890 / 890 Balance 890 / 890 Intake: IV 650 / 650 Norepinephrine Drip 4,000 mcg In NS 250ml 250 ml @ 10 MCG/MIN 38.1 mls/hr IV .Q6H40M PRN Rx# :[id number] Sodium Bicarbonate 50 meq In 1/ 650 / 650 2 Ns 1,000 ml @ 75 mls/hr IV . Q14H ELINA Rx#:[id number] Oral 240 / 240 Other: Urine Appearance Clear Urine Color Yellow Stool Color Stool Consistency Size of Bowel Movement # Voids 1 # Bowel Movements Weight 83.7 kg Patient Weight 08/28/17 06:59 Weight 83.7 kg Laboratory Results - last 24 hr 08/26/17 08/27/17 08/27/17 16:15 04:44 06:13 Turbidity < 20 Sodium 144 D Potassium 3.1 L D Chloride 106 Carbon Dioxide 26 D Anion Gap 12 BUN 40.0 H Creatinine 1.4 H D GFR Calculation 36 BUN/Creatinine Ratio 29 H Glucose 91 Glucometer 201 88 Calculated Osmolality 287 H Calcium 8.2 L Icterus Index < 2 Specimen Hemolysis < 15 08/27/17 08/27/17 06:46 11:29 Turbidity Sodium Potassium Chloride Carbon Dioxide Anion Gap BUN Creatinine GFR Calculation BUN/Creatinine Ratio Glucose Glucometer 114 139 Calculated Osmolality Calcium Icterus Index Specimen Hemolysis - Imaging and Cardiology Echo: pending Cardiac cath: report reviewed (RCA stent placed 03/2017) - EKG Interpretation EKG: sinus rhythm Assessment and Plan - Assessment and Plan (1) Atrial flutter Status: Acute (2) HTN (hypertension) Problem details: Well controlled. Status: Chronic (3) Hyperlipidemia Problem details: Continue home dose Pravastatin 40mg daily. Status: Chronic (4) Atherosclerotic heart disease of [place] coronary artery without angina pectoris Status: Acute (5) Type 2 diabetes mellitus without complications Status: Acute (6) Non-ST elevation myocardial infarction (NSTEMI), type 2 Status: Acute - Assessment and Plan Atrial fibrillation with rapid ventricular rate Systolic HF NSTEMI CAD s/p RCA stent 03/2017 (on Brilinta) Hyperlipidemia + influenza B CKD- Stage 3 Hypertension Diabetes- Type 2 08/23/17 A Flutter: Chronic, unknown onset, asymptomatic - Metoprolol 5mg IVP X1 - Esmolol drip fro rate control - Anticoagulated on Eliquis - Amiodarone bolus and drip - Check TSH and Mag Patient did not tolerate Amiodarone. Amiodarone stopped - sedation provided and DCCV successful to SR - Start Flecainide 100mg now and 50mg BID Thank you for allowing us to participate in the care of this patient. 08/24/17 BP stable, remains on Levophed, wean off - HR bradycardia but SR, LBBB. Denies symptoms - Continue Flecainide for AAT. - Elevated troponin, likely due to low cardiac output, hypotension and demand ischemia with RVR. - 1) 0.112, 2) 0.126, 3) 0.165, 4) 0.292, 5)0.438, 6) 0.392 trending down - Scr 1.9 today, repeat K+ 5.1 08/25/17 - Coughs until vomiting, not likely caused by AAT - Continue Flecainide for AAT - EKG in AM - Amylase and Lipase - Continue to monitor telemetry 08/26/17 - lipase WNL - EKG this am SR LBBB w/pac QTc 557, 0800 ECG SR LBBB QTc 513, images reviewed by Dr. Chavez - No arrhythmia on tele, remains SB, SR - BNP today 12,200; attending diuresing with IV bumex; lytes stable. Creatinine improving. - continue flecainide 50mg every 12 hours 08/27/17 - notified pt has 6 minutes of PAT around 1900 yesterday evening. - Further reports of unsustained VT through the night, upon strip review no VT seen, Afib vs. Aberrant rhythm. - ECG today shows QTc stable at .519, continue flecainide 50mg every 12 hours. Case discussed with Kathy, he prefers this med despite concurrent CAD due to limited AAT choices due to pt intolerance and recurrent PAT - K low today, attending replacing; renal function stable. - Diuresing, no reliable I& O for review, pt reports frequent urination. This pt was seen and examined by me, Valentina Du, NEGRO; case was discussed with Dr. Chavez he agrees with plan. Hospital Course Summary Disclaimer: The visit summary below is not to be considered part of the above Progress Note. Hospital Course: Impression Atrial fibrillation with rapid ventricular rate Weakness and fatigue Hyperlipidemia CKD- Stage 3 Systolic heart failure Hypertension Diabetes- Type 2 Coronary artery disease Spondylolisthesis/Scoliosis 08/23/17-admission Admit to CCU to observation status under the care of Dr Wilcox Placed to Dr. Chavez for further cardiac evaluation recommendations. Will need further rate control with RVR Obtain CBC, CMP, magnesium, troponin, urinalysis and twelve-lead EKG on admission. Monitor on cardiac city supervisor Accu-Cheks. Given history of type II diabetes Place patient nothing by mouth at this time until further cardiac evaluation and plan has been warmed. Zofran available as needed for nausea NS at 100 ML/hr for gently dehydration Will evaluate home medications once they are reconciled SCDs to bilateral lower extremity for DVT prophylaxis She does wish to be a full code and this orders written. Will discuss further orders and plan of care with attending, Dr. Wilcox At time of discharge medical care will return to primary care provider, Dr Carias 08/24/17 Converted to sinus rhythm yesterday with cardioversion; rhythm has remains stable. Eliquis/brilinta resume today per cardiology. Flecainide started yesterday evening. Persistent hypotension after 2 L normal saline yesterday evening led to low dose Levophed overnight-weaned off this morning. Systolic blood pressures in the 60s at time yesterday evening. The patient additionally received a single dose of IV hydrocortisone for possible adrenal insufficiency; cortisol level pending. Will not continue IV steroids as blood pressure stable today. Creatinine up today, persistent metabolic acidosis-reassess electrolytes/ creatinine this afternoon. Suspect lactic acidosis due to hypotension associated with tachyarrhythmia. Insulin resumed per home regimen-dose is decreased slightly to account for hospital diet. 08/25/17 Blood pressure stable overnight but urine output poor, BUN/creatinine climbing with low urine sodium and fractional excretion sodium suggesting prerenal state although ATN probable given prolonged hypotension. Creatinine has remained stable this afternoon although BUN is up a little further-continue fluids. Chest x-ray suggests mild pulmonary edema but oxygenating well and exam unremarkable; because urine output remains poor will give a single dose of Bumex at this time to promote urine output and improve renal perfusion. Bicarbonate remains low at 16-fluids changed from normal saline to half-normal with 1 amp of bicarbonate. Blood sugars stable, morning insulin held today due to impaired oral intake. <Jeff Chavez - Last Filed: 08/30/17 07:55> Exam Vital signs: Temperature 98.5 F 08/28/17 11:00 Pulse Rate 65 08/28/17 11:00 Respiratory Rate 16 08/28/17 11:00 Blood Pressure 149/78 H 08/28/17 11:00 Pulse Oximetry 94 08/28/17 11:00 Inpatient Medications: Discontinued Medications Generic Name Dose Route Start Last Admin Trade Name Freq PRN Reason Stop Dose Admin Acetaminophen 650 mg 08/23/17 18:27 08/26/17 08:50 Tylenol PO 650 mg Q4H PRN Administration Pain Apixaban 2.5 mg 08/24/17 11:25 08/24/17 20:47 Eliquis PO 2.5 mg BID ELINA Administration Apixaban 2.5 mg 08/25/17 09:00 08/28/17 09:02 Eliquis PO 2.5 mg BID ELINA Administration Benzonatate 200 mg 08/25/17 15:11 08/28/17 16:03 Tessalon Perles PO 200 mg TID PRN Administration cough Bumetanide 1 mg 08/25/17 16:01 08/25/17 16:26 Bumex 1 Mg/4 Ml Inj. IVP 08/25/17 16:02 1 mg O ONE Administration Bumetanide 1 mg 08/26/17 09:20 08/28/17 14:44 Bumex 1 Mg Tab PO 1 mg [id number] ELINA Administration Enoxaparin Sodium 70 mg 08/23/17 22:13 Lovenox SQ BID ELINA Flecainide Acetate 50 mg 08/23/17 21:00 08/28/17 09:03 Tambocor PO 50 mg BID ELINA Administration Flecainide Acetate 100 mg 08/23/17 15:09 08/23/17 15:58 Tambocor PO 08/23/17 15:10 100 mg O ONE Administration Guaifenesin 1,200 mg 08/27/17 21:00 08/28/17 09:03 Mucinex La PO 1,200 mg BID ELINA Administration Guaifenesin/Codeine Phosphate 2.5 - 5 ml 08/27/17 12:40 08/27/17 13:30 Robitussin Ac PO 5 ml Q4H PRN Administration Cough /Congestion Heparin Sodium (Porcine) 5,000 units 08/23/17 22:15 08/24/17 08:47 Heparin Sq SQ 5,000 units Q12HR ELINA Administration Hydrocortisone Sodium Succinate 100 mg 08/24/17 01:10 08/24/17 01:29 Solu-Cortef IVP 08/24/17 01:11 100 mg O ONE Administration Esmolol HCl 2,500 mg in 250 mls @ 21.66 mls/hr 08/23/17 10:39 Brevibloc Drip IV .[id number] PRN Protocol 50 MCG/KG/MIN Amiodarone HCl 450 mg/ Sodium 250 mls @ 33.33 mls/hr 08/23/17 12:00 08/23/17 12:29 Chloride IV 08/23/17 18:00 0 mg/min .Q7H31M ELINA 0 mls/hr 1 MG/MIN Infusion Amiodarone HCl 150 mg/ Sodium 103 mls @ 618 mls/hr 08/23/17 11:15 08/23/17 11 :44 Chloride IV 08/23/17 11:24 618 mls/hr O ONE Administration Amiodarone HCl 900 mg/ Sodium 500 mls @ 16.66 mls/hr 08/23/17 18:00 Chloride IV .Q24H ELINA 0.5 MG/MIN Sodium Chloride 1,000 mls @ 100 mls/hr 08/23/17 11:30 08/25/17 09:54 1/2 Normal Saline IV Infused .Q10H ELINA Infusion Sodium Chloride 500 mls @ 999.9 mls/hr 08/23/17 18:30 08/23/17 18:55 Normal Saline IV 08/23/17 18:31 Infused .Q30M ELINA Infusion Sodium Chloride 500 mls @ 999.9 mls/hr 08/23/17 20:45 08/23/17 21:11 Normal Saline IV 08/23/17 20:46 Infused .Q30M ELINA Infusion Sodium Chloride 500 mls @ 999.9 mls/hr 08/23/17 22:00 Normal Saline IV .Q30M ELINA Sodium Chloride 500 mls @ 250 mls/hr 08/23/17 22:45 08/24/17 00:30 Normal Saline IV 08/23/17 22:46 Infused .Q2H ELINA Infusion Norepinephrine Bitartrate 4, 254 mls @ 38.1 mls/hr 08/24/17 01:08 08/26/17 14 :18 000 mcg/ Sodium Chloride IV Infused .Q6H40M PRN Titration Protocol 10 MCG/MIN Sodium Chloride 1,000 mls @ 150 mls/hr 08/25/17 09:45 08/26/17 14:18 Normal Saline IV Not Given .Q6H40M ELINA Sodium Bicarbonate 50 meq/ 1,050 mls @ 75 mls/hr 08/25/17 17:00 08/27/17 10: 30 Sodium Chloride IV Infused .Q14H ELINA Infusion Insulin Aspart 1 - 5 unit 08/24/17 10:20 08/28/17 14:44 Novolog SQ 2 unit SS PRN Administration Hyperglycemia Protocol Insulin Human Isoph/Insulin Regular 12 unit 08/25/17 07:30 08/28/17 09:04 Novolin 70/30 SQ 12 unit [id number] ELINA Administration Insulin Human Isoph/Insulin Regular 10 unit 08/24/17 17:00 08/27/17 18:09 Novolin 70/30 SQ 10 unit ACS ELINA Administration Menthol 1 lozenge 08/27/17 09:59 08/27/17 15:00 Ricola Sf MM 1 lozenge PRN PRN Administration Cough Metoclopramide HCl 5 mg 08/25/17 17:13 Reglan IVP Q6H PRN Metoprolol Tartrate 5 mg 08/23/17 10:37 08/23/17 11:02 Lopressor IVP 08/23/17 10:38 5 mg ONCE ONE Administration Ondansetron HCl 4 mg 08/23/17 09:29 08/25/17 10:04 Zofran IVP 4 mg Q6H PRN Administration Nausea Ondansetron HCl 4 mg 08/25/17 09:38 08/26/17 06:12 Zofran IVP 4 mg Q6H PRN Administration Nausea &/or vomiting Potassium Chloride 40 meq 08/27/17 08:49 08/27/17 09:09 K-Dur 20 Meq Tablet PO 08/27/17 08:50 40 meq O ONE Administration Potassium Chloride 20 meq 08/27/17 17:30 08/28/17 09:02 K-Dur 20 Meq Tablet PO 20 meq BIDWM ELINA Administration Potassium Chloride 20 meq 08/28/17 12:00 08/28/17 12:44 K-Dur 20 Meq Tablet PO 20 meq TIDWM ELINA Administration Ticagrelor 90 mg 08/24/17 11:24 08/28/17 09:03 Brilinta PO 90 mg BID ELINA Administration Tramadol HCl 50 mg 08/24/17 01:11 08/24/17 01:56 Ultram PO 50 mg Q4H PRN Administration Pain Results 08/26/17 04:45 08/28/17 04:32 Assessment and Plan - Assessment and Plan (1) Atrial flutter Status: Acute (2) HTN (hypertension) Problem details: Well controlled. Status: Chronic (3) Hyperlipidemia Problem details: Continue home dose Pravastatin 40mg daily. Status: Chronic (4) Atherosclerotic heart disease of [place] coronary artery without angina pectoris Status: Acute (5) Type 2 diabetes mellitus without complications Status: Acute (6) Non-ST elevation myocardial infarction (NSTEMI), type 2 Status: Acute - Attestation Attestation Narrative: 08/30/17 07:55 Recommendation I agree with the above and I am involved in the formulation of the patient's plan of care. Hospital Course Summary Disclaimer: The visit summary below is not to be considered part of the above Progress Note.
[2017-08-27] MEDS ORDERED: GUAIFENESIN/CODEINE 5ml ORAL LIQUID PO PRN (12:40)
[2017-08-27] MEDS: GUAIFENESIN LA 600 MG TABLET PO SCH (20:57)
[2017-08-28] MEDS: FLECAINIDE 50 MG TABLET PO SCH ×2 (00:02→09:03)
[2017-08-28 04:56] VITALS: RESP 16; O2SAT 94
[2017-08-28] MEDS: APIXABAN 2.5 MG TABLET PO SCH (09:02)
[2017-08-28] MEDS: BUMETANIDE 1 MG TABLET PO SCH ×2 (09:02→14:44)
[2017-08-28] MEDS: GUAIFENESIN LA 600 MG TABLET PO SCH (09:03)
[2017-08-28] MEDS: TICAGRELOR 90 MG TABLET PO SCH (09:03)
[2017-08-28] MEDS: INSULIN NPH/REG 70/30 INJECTION SQ SCH (09:04)
[2017-08-28 11:03] VITALS: BP 149/78; PULSE 65; TEMP 98.5
[2017-08-28] MEDS: INSULIN ASPART 100unit/ml INJECTION SQ PRN ×2 (11:17→14:44)
--- NOTE | 2017-08-28 11:59 | Discharge Summary ---
Discharge Information Date of admission: 08/23/17 15:16 Anticipated date of discharge: 08/28/17 Attending Physician: Suzanne Torres MD Primary care physician: Sachin Carias MD Consults: Consulting Provider: Jeff Chavez Reason For Exam: Afib with RVR - Discharge Diagnosis (1) Atrial fibrillation with RVR Status: Acute Atrial fibrillation with rapid ventricular rate - converted to SR. Hypokalemia. Influenza B. Hypotension post cardioversion - resolved. Metabolic acidosis/Lactic acidosis - resolved. LISA on CKD - Stage 3 - LISA resolved. Hyperkalemia - resolved. Elevated troponin - type II UT Cough - possible CHF with history of systolic heart failure Weakness and fatigue CAD Hyperlipidemia Hypertension - chronic Diabetes - Type 2 Spondylolisthesis/Scoliosis - Procedures Procedures: DATE OF PROCEDURE August 23, 2017 The patient is a pleasant 87-year-old lady who was admitted with atrial fibrillation with rapid ventricular rate on chronic anticoagulation and was referred for cardioversion. Informed consent was obtained after explaining the procedure and the potential risks to the patient and family who agreed to proceed with the procedure. PROCEDURE 1. DC cardioversion. Conscious sedation was performed using Versed and fentanyl. Anterior-posterior Zoll pads were applied. 360 joules of energy was delivered in synchronized manner and patient converted from atrial fibrillation to sinus rhythm. She tolerated the procedure well with no complications. IMPRESSION 1. Successful DC cardioversion of atrial fibrillation to sinus rhythm. PLAN Will continue anticoagulation and continue antiarrhythmics to maintain sinus. - Laboratory Labs: 08/26/17 04:45 08/28/17 04:32 - Radiology Radiology: Date of Exam: 08/25/17 PROCEDURE: XR chest 1V: Findings: Interval development of mild pulmonary edema with hazy right infrahilar airspace opacity. Small pleural effusions are new. No pneumothorax. Heart size and mediastinal contours are stable. Impression: New mild pulmonary edema. Right lower lobe airspace opacity could represent atelectasis or early pneumonia. Date of Exam: 08/27/17 PROCEDURE: CHEST 2-VIEWS UPRIGHT (PA & LAT) FINDINGS: Aeration of the right lower lobe has improved. Interstitial prominence has slightly worsened with small effusions. Upper lung fitzpatrick are clear. No pneumothorax. Heart size and mediastinal contours are stable. Impression: Continued mild pulmonary edema. Date of Exam: 08/28/17 PROCEDURE: ECHOCARDIOGRAM Report pending at time of discharge. History of Present Illness HPI: Jovita is a pleasant 87 yr old female who has been feeling "under the whether" since the end of July. She initially had upper respiratory congestion and coughing, although these symptoms have improved she continues to have weakness, fatigued and dizziness. She presented to PCP Dr Carias today for evaluation on ongoing symptoms. Upon examination she was found to be in A-fib with RVR in the 120-140's. She follows with Dr Chavez for ongoing cardiology care and last underwent cardiac stenting of the LAD in 03/2017. She reports feeling good since that time until recent illness over the past few weeks that she suspects has been influenza. She is seen on arrival to [facility]U as she was accepted as a direct admission from Dr Carias office. She is alert, oriented and pleasant. She is noted to be in atrial flutter with rapid ventricular rate 120s at time of examination. Currently denies having any chest pain, shortness of breath or palpitations. She does note to be having some recent episodes of dizziness with position changes, however, that has not been a new symptom. Overall she is felt "fatigue". Given her recent illness. Did discuss medical history, and advanced directives. She does wish to be a full code. Objective Vital signs: Temperature 98.5 F 08/28/17 11:00 Pulse Rate 65 08/28/17 11:00 Respiratory Rate 16 08/28/17 11:00 Blood Pressure 149/78 H 08/28/17 11:00 Pulse Oximetry 94 08/28/17 11:00 Rhythm: Normal Sinus Rhythm, Bundle Branch Block Height/Weight/BMI: Height 1.57 m Weight 83.7 kg Body Mass Index 29.1 - Constitutional Present: no acute distress, well nourished, well developed - Routine HEENT Exam Head: Present: normocephalic Eye: Absent: conjunctival icterus, scleral injection ENT: Present: mucous membranes moist, oropharynx clear - Routine Respiratory Exam Present: decreased breath sounds, CTA bilaterally - Routine Cardiovascular Exam Present: RRR, S1, S2, murmur - Routine Abdominal Exam Present: soft, normoactive bowel sounds, non distended, non tender - Routine Extremities Exam Present: edema (trace nonpitting edema b/l), pulses intact - Routine Skin Exam Present: intact, dry, warm - Routine Neurological Exam Present: alert, oriented X3, CN II-XII intact, normal speech - Routine Psychiatric Exam Present: normal affect, normal thought process, cooperative Hospital Course This is a general summary of the patient's hospital course. For more details refer to the complete medical record. Hospital course: 08/23/17: Admission Admitted to CCU to observation status under the care of Dr Wilcox. Dr. Chavez consulted for A-fib with RVR. Troponin was trended and peaked at .438 before going down. She was given Metoprolol 5mg IVP X1, and started on esmolol drip. She was sedated and cardioverted with successful rhythm change to sinus. Amiodarone was started, but she did not tolerate this so it was discontinued. Flecainide was started in its place as an antiarrhythmic. Eliquis was given for anticoagulation. Later she became hypotensive with SBP in the 60s, requiring 2L IVF bolus followed by low-dose Levophed. 08/24/17 Rhythm remains stable. Eliquis/Brilinta resumed today per cardiology. BP improved and Levophed was weaned off. Additionally received a single dose of IV hydrocortisone for possible adrenal insufficiency; cortisol level pending. Creatinine up to 2.1, persistent metabolic acidosis. Suspect lactic acidosis due to hypotension associated with tachyarrhythmia. Insulin resumed per home regimen-dose is decreased slightly to account for hospital diet. 08/25/17 Blood pressure stable overnight but urine output poor, BUN/creatinine (55/2.3) climbing with low urine sodium and fractional excretion sodium suggesting prerenal state although ATN probable given prolonged hypotension. Chest x-ray suggests mild pulmonary edema but oxygenating well and exam unremarkable; because urine output remains poor gave Bumex x1. Bicarbonate remains low at 16 - IVF changed from NS to 1/2NS with 1 amp of bicarbonate. Blood sugars stable, morning insulin held today due to impaired oral intake. 08/26/17 Blood pressure remains stable overnight/this morning; urine output improved with diuresis/fluids. Creatinine slightly improved today. Persistent mild metabolic acidosis - continued low-volume bicarbonate infusion. Persistent cough consistent with mild CHF, continued diuresis with oral Bumex. Stable to transfer out of unit; continue telemetry - remains in sinus rhythm except for paroxysmal runs of PAT and a-fib. 08/27/17 New hypokalemia (K 3.1). Gave KCl 40 mEq po x1 and initiated KCl 20 mEq po BID. Creatinine improving. Metabolic acidosis improving; discontinued bicarbonate infusion. 08/28/17: Discharge Potassium improving (3.3). BUN 29, creatinine 1.1. TSH normal at 2.51. Oxygenating well on room air; remains in sinus rhythm. Medically stable for discharge; will stop Bumex. Renal status improved; increase Eliquis to 5 mg bid (samples provided per Romy Osorio APRN). Continue Brilinta and flecainide 50 mg BID. Rx for KDur 20 mEq daily. HOLD off on restarting losartan, since pt is very sensitive to BP meds. Dr. Chavez will consider restarting this at f/u appt on 09/20/17. F/U with Dr. Carias in 1 week. Recheck BMP on 08/31/17 to recheck renal function and potassium level. Time spent with patient: discharge greater than 30 minutes Resuscitation Status: Full Code Discharge Plan - Discharge Disposition Discharge Date: 08/28/17 Disposition: Discharged Home, Self-Care *Condition: Stable Reason For Visit (Visit label in EMR): Afib - cardioversion - initiating Flecanide - Discharge Medications *Discharge Medications: New Potassium Chloride [K-DUR 20 mEq Tablet] 20 meq PO WB #10 tab Flecainide [Tambocor] 50 mg PO BID #60 tab Continue Acetaminophen [Pain Reliever] 500 mg PO PRN PRN PRN Reason: Pain Pravastatin Sodium 40 mg PO WS #0 Ticagrelor [Brilinta] 90 mg PO BID Latanoprost [Xalatan] 1 drop LEFT EYE HS Insulin NPH/Reg 70/30 [Novolin 70/30] 16 unit SQ ACB Insulin NPH/Reg 70/30 [Novolin 70/30] 12 unit SQ ACS buspirone 5 mg tablet 5 mg PO TID PRN 30 Days #90 tab PRN Reason: anxiety Changed Apixaban [Eliquis] 5 mg PO BID #60 tab Discontinued Cozaar (losartan) 50 mg tablet 25 mg PO DAILY 90 Days #90 tab - Discharge Packet/Instructions *Diet: Heart Healthy, carbohydrate consistent. *Activity: As tolerated. *Pain Management/Treatment: Tylenol if needed. *Wound Care: N/A *Expected Signs/Symptoms: You may feel tired/fatigued from your hospital stay. Your cough might persist for some time. *Notify Physician if: Fever, chest pain, shortness of breath, high or low blood sugars, vomiting or diarrhea, mental status changes, stroke symptoms, changes in urination (ie dark-colored or not going to the bathroom very often), or any new concerns. *During Business Hours Contact: Dr. Chavez's office or Dr. Carias' office. *After Business Hours Contact: The on-call provider for Dr. Chavez or Dr. Carias. *Pending Lab/Results: Follow up w/your PCP Outpatient Orders: BMP - Basic Metabolic - [facility] Time Frame: 3 Days, Location: None Selected - Referrals/Follow Up *Referrals/Follow Up: Jeff Chavez MD [Physician] - 09/20/17 11:40 am (APPOINTMENT ON September AT 11:40.) Sachin Carias MD [Family Provider] - 1 Week (APPOINTMENT ON 09/07 CHECK IN AT 0830 SEE HIM AT 0900.) - Patient Handouts - Dismissal Complete Discharge Instructions are:: Complete Physician Narrative - Narrative Physician: Suzanne Torres MD Attestation Narrative: Date: 08/28/17 Time: 1500 I have independently evaluated and examined this patient. I reviewed the chart, the patient's history, and the COST ACCOUNTING ANALYST/PA's documented findings as above. We discussed and formulated the assessment and plan as above with additions as below: Mrs. Davenport reports that she's feeling better overall and cough is diminished though not gone. She slept better last night compared to prior days. Review of telemetry strips demonstrate sinus rhythm without runs of tachycardia. NAD, alert Respirations nonlabored, good airflow, breath sounds clear Regular rhythm Stable for discharge, echocardiogram completed-report pending Oxygenation stable on room air; with normalization of renal function I don't believe to be an ongoing need for diuresis.
[2017-08-28] MEDS: BENZONATATE 200 MG CAPSULE PO PRN (16:03)
--- NOTE | 2017-08-29 10:54 | Echocardiogram ---
DATE OF PROCEDURE August 28, [address] Suzanne Torres This is a two-dimensional echo with spectral Doppler, color-flow and M-mode. It was obtained in a patient with atrial fibrillation. Left atrium is dilated. Left ventricle is dilated. Left ventricular wall thickness is normal. Severe global hypokinesia is present with ejection fraction of about 20%. Right atrium is dilated. Right ventricle is normal. Aortic root dimension is normal. Mitral valve annulus is calcified. Mitral valve leaflets are normal with moderate mitral regurgitation. Aortic valve shows fibrocalcific changes with no stenosis. Mild aortic insufficiency is present. Tricuspid valve shows moderate tricuspid regurgitation with moderate pulmonary hypertension with estimated pulmonary artery systolic pressure of 50. Pulmonary valve shows moderate pulmonary insufficiency. There is no pericardial effusion. IMPRESSION 1. Global hypokinesia with ejection fraction of about 20%. 2. Biatrial dilation. 3. Left ventricular dilation. 4. Mitral annulus calcification with moderate mitral regurgitation. 5. Aortic sclerosis with mild aortic insufficiency. 6. Moderate tricuspid regurgitation with moderate pulmonary hypertension with estimated pulmonary artery systolic pressure of 50. 7. Moderate pulmonary insufficiency. MTDD
== END 2017-08-28 16:30 | disposition home or self-care (01) | DRG 281 ==
LOC: CCU → SUATTDRO 15:16 → MED 08-26 13:25
PROVIDERS: ADMIT Hospitalist; ATTEND Internal Medicine